=== PATIENT | male | born 1960 | race Caucasian/White ===

== ENCOUNTER 2018-05-16 11:11 | Inpatient (IN) ==
[2018-05-16 11:46] LABS: Basophils % 0.4 % (0.1-2.0); Eosinophils # 0.1 K/mm3 (0.0-0.4); Eosinophils % 1.4 % (0.1-12.0); Hematocrit 44.5 % (42.0-52.0); Lymphocytes # 2.1 K/mm3 (0.7-4.5); Lymphocytes % 22.9 % (10-50); Mean Corpuscular HGB Conc 33.7 g/dL (31.8-35.4); Mean Platelet Volume 7.2 fl (7.4-10.4); Monocytes # 0.5 K/mm3 (0.1-1.0); Monocytes % 5.4 % (1.7-9.3); Neutrophils # 6.4 K/mm3 (1.8-7.8); Platelet Count 253 K/mm3 (142-424); Red Cell Distribution Width 14.6 % (11.5-17.5); White Blood Count 9.1 K/mm3 (4.8-10.8)
[2018-05-16 11:48] LABS: Anion Gap 15.9 mEq/L (5-15); Calcium 9.6 mg/dL (8.5-10.1); Potassium 3.9 mmoL/L (3.5-5.1)
--- NOTE | 2018-05-16 15:44 | History & Physical Report ---
*Admission Date: 05/16/18 *Chief complaint: chest pain *History of present illness: 57-year-old male with history of tobacco use, hypertension, coronary artery disease status post CABG who presented with worsening shortness of breath, chest pressure, and nausea for the past day. His symptoms were severe enough that he called EMS. Upon arrival his workup in the ambulance showed concern for ST elevation. He was emergently taken to the cardiac Manager Of Case where occlusion of 1 of his vein grafts was noted. Stent was placed in reperfusion obtained however patient remained tachycardic and continued to have ST elevations on telemetry post-cath. Symptoms had significantly improved upon interview in the Manager Of Case every area. Denied nausea, headache, confusion, focal deficits, diarrhea, or shortness of breath. Medicine for further observation and management given persistent ST elevation and return for near complete [place] thrombosed dominant right vein graft. Cardiology involved. [facility] History Medical History: Reports:: Atherosclerotic Heart Disease, Coronary Artery Disease, Hyperlipidemia, Hypertension Other Surgeries: Yes: CABG - *Social History Educational Level: Attended High School Smoking Status: Current every day smoker Tobacco Type: cigarettes # Packs/Day (cigarettes): 1 Alcohol Intake: former Substance Use Type: denies use Travel in the last 8 weeks: None Family Hx:: Cancer, Coronary Artery Disease, Heart Attack Review of Systems - Review of Systems Review of systems:: pertinent systems reviewed and negative unless documented below Meds Home Medications Medication Instructions Recorded Confirmed Type Aspirin [Aspirin 81mg EC Tab] 81 mg PO DAILY 05/16/18 05/16/18 History Chlorthalidone 25 mg PO DAILY 05/16/18 05/16/18 History Fluticasone Propionate [Flonase 2 spr NS DAILY 05/16/18 05/16/18 History 50mcg nasal spray 16gm] Gabapentin Enacarbil [Horizant 600 mg PO BID 05/16/18 05/16/18 History 600mg ER Tab] Omeprazole [Omeprazole 40mg 40 mg PO DAILY 05/16/18 05/16/18 History Capsule] Oxycodone HCl/Acetaminophen 1 each PO QID 05/16/18 05/16/18 History [Percocet 10-325 mg Tablet] Simvastatin [Zocor] 80 mg PO HS 05/16/18 05/16/18 History Tiotropium Br/Olodaterol HCl 2.5 gm IH DAILY 05/16/18 05/16/18 History [Stiolto Respimat Inhal [place]] dilTIAZem HCl [Diltiazem 240mg 240 mg PO DAILY 05/16/18 05/16/18 History 24Hr ER Cap] Allergies Allergy/AdvReac Type Severity Reaction Status Date / Time No Known Allergies Allergy Verified 05/16/18 11:20 Exam Vital signs and Labs for Last 24 Hours: Pulse Resp BP Pulse Ox 91 H 18 102/57 L 98 05/16/18 15:03 05/16/18 15:03 05/16/18 15:03 05/16/18 15:03 Laboratory Results - last 24 hr 05/16/18 11:10: WBC 9.1, RBC 5.00, Hgb 15.0, Hct 44.5, MCV 89.0, MCH 30.0, MCHC 33.7, RDW 14.6, Plt Count 253, MPV 7.2 L, Neut % (Auto) 70.0, Lymph % (Auto) 22.9, [place] % (Auto) 5.4, Eos % (Auto) 1.4, Baso % (Auto) 0.4, Neut # (Auto) 6.4, Lymph # (Auto) 2.1, [place] # (Auto) 0.5, Eos # (Auto) 0.1, Baso # (Auto) 0.0 05/16/18 11:10: Sodium 137, Potassium 3.9, Chloride 99, Carbon Dioxide 26, Anion Gap 15.9 H, BUN 14, Creatinine 1.23, Estimated Creat Clear 74, Estimated GFR 60, Est GFR ( Amer) 73, Glucose 111 H, Calcium 9.6 05/16/18 11:29: Activated Clotting Time > 400 H* I & O for Last 24 hours: Intake & Output 05/13/18 05/14/18 05/15/18 05/16/18 23:59 23:59 23:59 23:59 Weight 80.286 kg - Constitutional mild distress, thin, disheveled - *Routine HEENT Exam Head: Present: normocephalic, atraumatic Eye: Present: EOMI, PERRL ENT: Present: mucous membranes moist - *Routine Neck Exam Present: supple, full ROM. Absent: JVD - *Routine Respiratory Exam Present: CTA bilaterally. Absent: prolonged expiratory phase, wheezes, crackles - *Routine Cardiovascular Exam Present: RRR, Normal S1 Comments: well healed midline sternotomy scar. - *Routine Abdominal Exam Present: soft, normoactive bowel sounds - *Routine Rectal Exam Patient deferred: visual exam - *Routine Exam Patient deferred: penile exam - *Routine Extremities Exam Absent: cyanosis, clubbing, edema - *Routine Skin Exam Present: intact. Absent: cyanosis, erythema Comments: multiple tattoos - *Routine Neurological Exam Present: alert, oriented X3. Absent: altered mental status Assessment and Plan (1) STEMI (ST elevation myocardial infarction) Current visit: Yes Status: Acute Category: Medical Code(s): I21.3 - ST elevation (STEMI) myocardial infarction of unspecified site Occlusion of vein graft to right main -Status post stent placement and thrombectomy. Continue goal-directed therapy with Brilinta, TRAVIS, beta-demar, statin -Monitor on telemetry -Cardiology will continue to follow along, appreciate recommendations (2) CAD (coronary artery disease), [place] coronary artery Current visit: Yes Status: Acute Category: Medical Code(s): I25.10 - Atherosclerotic heart disease of [place] coronary artery without angina pectoris Status post CABG, coronary artery disease of vein grafts as well. (3) HTN (hypertension) Current visit: Yes Status: Acute Qualifiers: Hypertension type: essential hypertension Qualified Code(s): I10 - Essential (primary) hypertension Category: Medical Code(s): I10 - Essential (primary) hypertension Less than 140/90 -Continue antihypertensives as ordered (4) Tobacco use disorder Current visit: Yes Status: Chronic Category: Medical Code(s): F17.200 - Nicotine dependence, unspecified, uncomplicated nicotine replacement as needed (5) Opiate dependence Current visit: Yes Status: Chronic Qualifiers: Substance use status: uncomplicated Qualified Code(s): F11.20 - Opioid dependence, uncomplicated Category: Medical Code(s): F11.20 - Opioid dependence, uncomplicated Henrry uses 10 mg of Percocet 4 times a day. At risk for withdrawal. In setting of acute NE, withdrawal symptoms could be life-threatening. Will initiate Percocet 10 mg every 4hr as needed - Assessment and plan all Dx Assessment and Plan for all problems:: Mr. Mohr is a 57-year-old male who is suffered a heart attack status post stent of vein graft. Condition remains serious, prognosis guarded. At risk for arrhythmias. Will advance rate control as tolerated. Will require continued monitoring as his subtotal heart attack continues to involve.
[2018-05-17 06:00] LABS: Basophils % 0.2 % (0.1-2.0); Eosinophils # 0.1 K/mm3 (0.0-0.4); Eosinophils % 0.9 % (0.1-12.0); Hematocrit 40.9 % (42.0-52.0); Hemoglobin 13.6 g/dL (14.1-18.0); Lymphocytes # 1.7 K/mm3 (0.7-4.5); Lymphocytes % 14.8 % (10-50); Mean Corpuscular HGB Conc 33.1 g/dL (31.8-35.4); Mean Corpuscular Hemoglobin 29.9 pg (27.0-31.2); Mean Corpuscular Volume 90.2 fl (80-94); Monocytes # 0.7 K/mm3 (0.1-1.0); Monocytes % 5.8 % (1.7-9.3); Neutrophils # 8.8 K/mm3 (1.8-7.8); Neutrophils % 78.4 % (37.0-80.0); Platelet Count 237 K/mm3 (142-424); Red Blood Count 4.54 M/mm3 (4.60-6.20); Red Cell Distribution Width 14.7 % (11.5-17.5); White Blood Count 11.3 K/mm3 (4.8-10.8)
[2018-05-17 06:20] LABS: Anion Gap 14.3 mEq/L (5-15); Calcium 9.1 mg/dL (8.5-10.1); Potassium 4.3 mmoL/L (3.5-5.1)
--- NOTE | 2018-05-17 09:22 | Progress Note ---
Internal Medicine - PN: Subj *Date: 05/17/18 *Time: 08:30 Interval history: Mr. Mohr did well overnight with no further episodes of chest pain, palpitations, shortness of breath. Tolerating regular diet. review of telemetry shows occasional PVC, still some slight ST elevation though improved. No other findings of ectopy. Blood pressure has remained stable and heart rate under 100 overnight. Remains afebrile, denies nausea, vomiting, upset stomach. Exam Vital signs and Labs for Last 24 Hours: Temp Pulse Resp BP Pulse Ox 98.3 F 68 15 103/63 L 91 L 05/17/18 08:00 05/17/18 08:00 05/17/18 08:00 05/17/18 08:00 05/17/18 08:00 Laboratory Results - last 24 hr 05/16/18 11:10: WBC 9.1, RBC 5.00, Hgb 15.0, Hct 44.5, MCV 89.0, MCH 30.0, MCHC 33.7, RDW 14.6, Plt Count 253, MPV 7.2 L, Neut % (Auto) 70.0, Lymph % (Auto) 22.9, [place] % (Auto) 5.4, Eos % (Auto) 1.4, Baso % (Auto) 0.4, Neut # (Auto) 6.4, Lymph # (Auto) 2.1, [place] # (Auto) 0.5, Eos # (Auto) 0.1, Baso # (Auto) 0.0 05/16/18 11:10: Sodium 137, Potassium 3.9, Chloride 99, Carbon Dioxide 26, Anion Gap 15.9 H, BUN 14, Creatinine 1.23, Estimated Creat Clear 74, Estimated GFR 60, Est GFR ( Amer) 73, Glucose 111 H, Calcium 9.6 05/16/18 11:29: Activated Clotting Time > 400 H* 05/17/18 05:45: WBC 11.3 H, RBC 4.54 L, Hgb 13.6 L, Hct 40.9 L, MCV 90.2, MCH 29.9, MCHC 33.1, RDW 14.7, Plt Count 237, MPV 8.0, Neut % (Auto) 78.4, Lymph % (Auto) 14.8, [place] % (Auto) 5.8, Eos % (Auto) 0.9, Baso % (Auto) 0.2, Neut # (Auto) 8.8 H, Lymph # (Auto) 1.7, [place] # (Auto) 0.7, Eos # (Auto) 0.1, Baso # (Auto) 0.0 05/17/18 05:45: Sodium 136, Potassium 4.3, Chloride 99, Carbon Dioxide 27, Anion Gap 14.3, BUN 12, Creatinine 1.16, Estimated Creat Clear 78, Estimated GFR 65, Est GFR ( Amer) 78, Glucose 113 H, Calcium 9.1 I & O for Last 24 hours: Intake & Output 05/14/18 05/15/18 05/16/18 05/17/18 23:59 23:59 23:59 23:59 Intake Total 120 / 120 480 / 480 Output Total 940 / 940 600 / 600 Balance -820 / -820 -120 / -120 Weight 79.492 kg 79.379 kg Narrative: - Constitutional NAD, thin - *Routine HEENT Exam Head: Present: normocephalic, atraumatic Eye: Present: EOMI, PERRL ENT: Present: mucous membranes moist - *Routine Neck Exam Present: supple, full ROM. Absent: JVD - *Routine Respiratory Exam Present: CTA bilaterally. Absent: prolonged expiratory phase, wheezes, crackles - *Routine Cardiovascular Exam Present: RRR, Normal S1 Comments: well healed midline sternotomy scar. - *Routine Abdominal Exam Present: soft, normoactive bowel sounds - *Routine Rectal Exam Patient deferred: visual exam - *Routine Exam Patient deferred: penile exam - *Routine Extremities Exam Absent: cyanosis, clubbing, edema - *Routine Skin Exam Present: intact. Absent: cyanosis, erythema Comments: multiple tattoos - *Routine Neurological Exam Present: alert, oriented X3. Absent: altered mental status Assessment and Plan (1) STEMI (ST elevation myocardial infarction) Current visit: Yes Status: Acute Category: Medical Code(s): I21.3 - ST elevation (STEMI) myocardial infarction of unspecified site (2) CAD (coronary artery disease), [place] coronary artery Current visit: Yes Status: Acute Category: Medical Code(s): I25.10 - Atherosclerotic heart disease of [place] coronary artery without angina pectoris (3) HTN (hypertension) Current visit: Yes Status: Acute Qualifiers: Hypertension type: essential hypertension Qualified Code(s): I10 - Essential (primary) hypertension Category: Medical Code(s): I10 - Essential (primary) hypertension (4) Tobacco use disorder Current visit: Yes Status: Chronic Category: Medical Code(s): F17.200 - Nicotine dependence, unspecified, uncomplicated (5) Opiate dependence Current visit: Yes Status: Chronic Qualifiers: Substance use status: uncomplicated Qualified Code(s): F11.20 - Opioid dependence, uncomplicated Category: Medical Code(s): F11.20 - Opioid dependence, uncomplicated - Assessment and plan all Dx Assessment and Plan for all problems:: Patient doing quite well. Due to high risk for acute cardiac within the first 48 hours after patient's SD, continue inpatient management. Will obtain echocardiogram in the morning. Continue metoprolol, goal-directed therapy. Continue telemetry, de-escalate from ICU status.
--- NOTE | 2018-05-17 15:21 | Pharmacy Consult Notes ---
[facility] Pharmacy VTE Monitoring - Patient Demographics Admission date: 05/16/18 Report Date: 05/17/18 Time: 15:20 Allergies/Adverse Reactions: Patient Allergies No Known Allergies Allergy (Verified 05/16/18 11:20) Height: 1.85 m Weight: 79.379 kg Patient Problems: Current Active Problems STEMI (ST elevation myocardial infarction) (Acute) CAD (coronary artery disease), [place] coronary artery (Acute) HTN (hypertension) (Acute) Tobacco use disorder (Chronic) Opiate dependence (Chronic) - VTE Risk Labs: VTE Related Lab Results Hgb 13.6 g/dL (14.1-18.0) L 05/17/18 05:45 Hct 40.9 % (42.0-52.0) L 05/17/18 05:45 Plt Count 237 K/mm3 (142-424) 05/17/18 05:45 BUN 12 mg/dL (7-18) 05/17/18 05:45 Creatinine 1.16 mg/dL (0.70-1.30) 05/17/18 05:45 Estimated Creat Clear 78 mL/min (50-200) 05/17/18 05:45 Was VTE Risk Assessment Performed: Yes VTE Score: 2 VTE Risk Level: Very Low Risk - Prophylaxis VTE Prophylaxis Ordered?: Yes Types of VTE Prophylaxis: TEDS Knee High Location of Applied Device: Bilateral Lower Extremeties
--- NOTE | 2018-05-18 08:39 | Discharge Summary ---
General - General Admission date:: 05/16/18 Discharge date: 05/18/18 HPI HPI: 57-year-old male with history of tobacco use, hypertension, coronary artery disease status post CABG who presented with worsening shortness of breath, chest pressure, and nausea for the past day. His symptoms were severe enough that he called EMS. Upon arrival his workup in the ambulance showed concern for ST elevation. He was emergently taken to the cardiac Electrical Test Engineer where occlusion of 1 of his vein grafts was noted. Stent was placed in reperfusion obtained however patient remained tachycardic and continued to have ST elevations on telemetry post-cath. Symptoms had significantly improved upon interview in the Electrical Test Engineer every area. Denied nausea, headache, confusion, focal deficits, diarrhea, or shortness of breath. Medicine for further observation and management given persistent ST elevation and return for near complete [place] thrombosed dominant right vein graft. Cardiology involved. Hospital Course Hospital Course: Patient was admitted, taken to the Electrical Test Engineer urgently for his STEMI with the results as noted below: ANGIOGRAPHIC RESULTS: 1. The left main artery has distal 50% stenosis 2. 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 The circumflex artery is nondominant and gives rise to a small first obtuse marginal artery which has 90% stenoses in its proximal mid segment 4. The right coronary artery is a dominant vessel and occluded in its proximal segment 5. The [place] ventriculogram reveals moderate left ventricular dilatation ejection fraction 40% with inferior wall hypokinesis 6. The left ventricular end-diastolic pressure 20 mmHg The left internal mammary artery is widely patent onto the LAD The saphenous vein graft to the circumflex artery is widely patent Saphenous vein graft to the dominant right coronary artery has an ostial 60-70% stenosis very proximal atheromatous plaque with dissection and occluded in its distal segment from a large thrombus. After revascularization and stenting the vein graft anastomosis on to the posterior descending artery which then backfills the posterior lateral branch and the right ventricular marginal branch. IMPRESSION: Acute inferolateral posterior right ventricular ST elevation myocardial infarction Successful drug-eluting stenting of the ostial proximal mid and distal saphenous vein graft supplying the dominant right coronary artery as described above Patent [place] to the LAD Reduced ejection fraction with regional wall motion abnormality Mildly elevated LVEDP Severe [place] coronary artery disease as described above Patent saphenous vein graft to circumflex which artery PLAN: 1. Brilinta and aspirin for one year 2. Absolute tobacco cessation 3. LDL less than 55 4. Cardiac rehabilitation 5. Supportive care with planned echocardiogram on Friday 6. Start Greg inhibitors as soon as hemodynamically stable. Beta blockers can also continue or start once patient is more stable from a heart rate standpoint 7. Patient should receive judicious amounts of opioids. Patient indicates he takes pain pills on a regular basis. This history needs to be explored and the exact amount quantitated. Patient should not experience any opiate Withdrawal symptoms during his letty-infarct as this will be detrimental to his cardiovascular health Patient did well after the heart cath, beta-demar and GREG inhibitors were started and tolerated well. This morning the patient was doing well, stable to be discharged home from a vital sign perspective. He will follow-up with his regular physician, Dr. Cong Garcia this week and with cardiology in 1 week. He was encouraged to completely stop smoking. Objective Vital signs: Temp Pulse Resp BP Pulse Ox 98.9 F 82 16 116/76 96 05/18/18 04:00 05/18/18 04:00 05/18/18 04:00 05/18/18 04:00 05/18/18 04:00 no acute distress, thin - *Routine HEENT Exam Head: Present: normocephalic, atraumatic Eye: Present: EOMI, PERRL ENT: Present: mucous membranes moist - *Routine Respiratory Exam Present: CTA bilaterally. Absent: accessory muscle use, prolonged expiratory phase - *Routine Cardiovascular Exam Present: RRR, Normal S1, Normal S2, murmur - *Routine Abdominal Exam Present: soft, normoactive bowel sounds, tenderness - *Routine Extremities Exam Present: full ROM. Absent: cyanosis, clubbing, edema - *Routine Neurological Exam Present: alert, oriented X3 DS: Diagnosis - Discharge Diagnosis (1) STEMI (ST elevation myocardial infarction) Status: Acute (2) CAD (coronary artery disease), [place] coronary artery Status: Acute (3) HTN (hypertension) Status: Acute (4) Tobacco use disorder Status: Chronic (5) Opiate dependence Status: Chronic Discharge Plan - Patient Discharge Instructions ACTIVITY: Continue current activity DIET: continue same diet Patient Instructions: Heart Attack, Cardiac Catheterization, How to Quit Tobacco Products - Follow up Plan Follow up with: Cong Garcia [Primary Care Provider] - 05/21/18 Lawrence Adrian MD [Staff Physician] - 1 week Disposition: Home, Self-[facility] Medications: Home Medications Medication Instructions Recorded Confirmed Type Aspirin [Aspirin 81mg EC Tab] 81 mg PO DAILY 05/16/18 05/16/18 History Chlorthalidone 25 mg PO DAILY 05/16/18 05/16/18 History Fluticasone Propionate [Flonase 2 spr NS DAILY 05/16/18 05/16/18 History 50mcg nasal spray 16gm] Gabapentin Enacarbil [Horizant 600 mg PO BID 05/16/18 05/16/18 History 600mg ER Tab] Omeprazole [Omeprazole 40mg 40 mg PO DAILY 05/16/18 05/16/18 History Capsule] Oxycodone HCl/Acetaminophen 1 each PO QID 05/16/18 05/16/18 History [Percocet 10-325 mg Tablet] Simvastatin [Zocor] 80 mg PO HS 05/16/18 05/16/18 History Tiotropium Br/Olodaterol HCl 2 spray IH DAILY 05/16/18 05/17/18 History [Stiolto Respimat Inhal [place]] Losartan Potassium 50 mg PO DAILY 05/17/18 05/17/18 History dilTIAZem HCl [Diltiazem 180mg 180 mg PO DAILY 05/17/18 05/17/18 History 24Hr ER Cap] Metoprolol Tartrate [Lopressor 25 mg PO BID #60 tablet 05/18/18 Rx 25mg tablet] Nicotine [Nicotine Patch 21 mg TD DAILY #30 patch 05/18/18 Rx 21mg/24hrs] Ticagrelor [Brilinta 90mg Tablet] 90 mg PO BID 90 Days #180 tablet 05/18/18 Rx Prescriptions/Medication Reconciliation: New Metoprolol Tartrate [Lopressor 25mg tablet] 25 mg PO BID #60 tablet Nicotine [Nicotine Patch 21mg/24hrs] 21 mg TD DAILY #30 patch Ticagrelor [Brilinta 90mg Tablet] 90 mg PO BID 90 Days #180 tablet Continue Fluticasone Propionate [Flonase 50mcg nasal spray 16gm] 2 spr NS DAILY Tiotropium Br/Olodaterol HCl [Stiolto Respimat Inhal [place]] 2 spray IH DAILY Omeprazole [Omeprazole 40mg Capsule] 40 mg PO DAILY Aspirin [Aspirin 81mg EC Tab] 81 mg PO DAILY Simvastatin [Zocor] 80 mg PO HS Gabapentin Enacarbil [Horizant 600mg ER Tab] 600 mg PO BID Losartan Potassium 50 mg PO DAILY dilTIAZem HCl [Diltiazem 180mg 24Hr ER Cap] 180 mg PO DAILY Oxycodone HCl/Acetaminophen [Percocet 10-325 mg Tablet] 1 each PO QID Chlorthalidone 25 mg PO DAILY
--- NOTE | 2018-05-18 08:59 | Consult Report ---
History of Present Illness Consult date: 05/18/18 Requesting physician: Teddy Hutchinson Consult reason: chest pain Chief complaint: chest pain Additional Medical History:: 1. CAD A. CABG 1997 B. Multiple stents since CABG C. STEMI, infero-posterior, 05/16/2018 D. [facility] with MEI to SVG to RCA, 05/16/18, IMPRESSION: Acute inferolateral posterior right ventricular ST elevation myocardial infarction Successful drug-eluting stenting of the ostial proximal mid and distal saphenous vein graft supplying the dominant right coronary artery as described above Patent PULIDO to the LAD Reduced ejection fraction with regional wall motion abnormality Mildly elevated LVEDP Severe [place] coronary artery disease as described above Patent saphenous vein graft to circumflex which artery PLAN: 1. Brilinta and aspirin for one year 2. Absolute tobacco cessation 3. LDL less than 55 4. Cardiac rehabilitation 5. Supportive care with planned echocardiogram on Friday 6. Start Greg inhibitors as soon as hemodynamically stable. Beta blockers can also continue or start once patient is more stable from a heart rate standpoint 7. Patient should receive judicious amounts of opioids. Patient indicates he takes pain pills on a regular basis. This history needs to be explored and the exact amount quantitated. Patient should not experience any opiate Withdrawal symptoms during his letty-infarct as this will be detrimental to his c ardiovascular health 2. Tobacco use, >40 yrs, smoked up to 4-5 ppd prior to CABG, 1-2 ppd since CABG 3. HTN 4. HLD 5. Disabled due to chronic back pain 6. Echo, 05/2018, preliminary showing LVEF about 50%. Official report pending. History of present illness: 57 yo WM admitted after cardiac cath for infero-posterior STEMI with patient being taken from ambulance straight to clinical laboratory medical director. Pt relates one week of exertional SS CP with radiation to left arm that would resolve with rest. Friday AM symptoms woke him and would not resolve. EMS called and pt t ransported to clinical laboratory medical director after EKG in field showed STEMI. MEI placed to SVG to RCA. Pt feeling much better now. Uncomplicated course over the weekend. Ready for discharge home today. [facility] History Medical History: Reports:: Atherosclerotic Heart Disease, Coronary Artery Disease, Hyperlipidemia, Hypertension Denies:: Cancer, Diabetes Mellitus Type 1, Diabetes Mellitus Type 2, MRSA Have you ever received a pneumonia vaccine?: Yes Have you received a flu vaccine this season?: Yes Laterality Cases: Left: Arthroscopy Shoulder Other Surgeries: Yes: CABG, Cardiac Catheterization, Cardiac Surgery, Colonoscopy, Coronary Stent, EGD, Open Heart Surgery, Other (2 neck surgeries, 2 (L) shoulder surgeries,) Amputation: No Fractures: No - *Social History Educational Level: Attended High School Smoking Status: Current every day smoker Tobacco Type: cigarettes # Packs/Day (cigarettes): 1 Alcohol Intake: former Substance Use Type: denies use Occupational Status: disabled Housing: house Household Members: spouse, children Travel in the last 8 weeks: None - Psychiatric History Expresses thoughts of harming self/others: None Suicide Plan Description: No Plan Family Hx:: Cancer, Coronary Artery Disease, Heart Attack Meds Home Medications Medication Instructions Recorded Confirmed Type Aspirin [Aspirin 81mg EC Tab] 81 mg PO DAILY 05/16/18 05/16/18 History Chlorthalidone 25 mg PO DAILY 05/16/18 05/16/18 History Fluticasone Propionate [Flonase 2 spr NS DAILY 05/16/18 05/16/18 History 50mcg nasal spray 16gm] Gabapentin Enacarbil [Horizant 600 mg PO BID 05/16/18 05/16/18 History 600mg ER Tab] Omeprazole [Omeprazole 40mg 40 mg PO DAILY 05/16/18 05/16/18 History Capsule] Oxycodone HCl/Acetaminophen 1 each PO QID 05/16/18 05/16/18 History [Percocet 10-325 mg Tablet] Simvastatin [Zocor] 80 mg PO HS 05/16/18 05/16/18 History Tiotropium Br/Olodaterol HCl 2 spray IH DAILY 05/16/18 05/17/18 History [Stiolto Respimat Inhal [place]] Losartan Potassium 50 mg PO DAILY 05/17/18 05/17/18 History dilTIAZem HCl [Diltiazem 180mg 180 mg PO DAILY 05/17/18 05/17/18 History 24Hr ER Cap] Metoprolol Tartrate [Lopressor 25 mg PO BID #60 tablet 05/18/18 Rx 25mg tablet] Nicotine [Nicotine Patch 21 mg TD DAILY #30 patch 05/18/18 Rx 21mg/24hrs] Ticagrelor [Brilinta 90mg Tablet] 90 mg PO BID 90 Days #180 tablet 05/18/18 Rx Allergies Allergy/AdvReac Type Severity Reaction Status Date / Time No Known Allergies Allergy Verified 05/16/18 11:20 Review of Systems - *Cardiovascular Reports chest pain, Reports shortness of breath - *Respiratory Reports shortness of breath, Reports shortness of breath with activity - *Gastrointestinal Denies abdominal pain, Denies vomiting blood - *Genitourinary Denies blood in urine - *Musculoskeletal Reports back pain - *Neurologic Denies dizziness, Denies lack of coordination Exam Vital signs and Labs for Last 24 Hours: Temp Pulse Resp BP Pulse Ox 98.9 F 82 16 116/76 96 05/18/18 04:00 05/18/18 04:00 05/18/18 04:00 05/18/18 04:00 05/18/18 04:00 I & O for Last 24 hours: Intake & Output 05/15/18 05/16/18 05/17/18 05/18/18 11:59 11:59 11:59 11:59 Intake Total 600 / 600 1200 / 1200 Output Total 1540 / 1540 3000 / 3000 Balance -940 / -940 -1800 / -1800 Weight 177 lb 175 lb 175 lb - *Routine HEENT Exam Head: Present: normocephalic Eye: Present: EOMI, PERRL ENT: Present: mucous membranes moist - *Routine Neck Exam Present: supple. Absent: JVD, carotid bruit - *Routine Respiratory Exam Present: rhonchi, wheezes, diminished air movement. Absent: accessory muscle use, rales - *Routine Cardiovascular Exam Present: RRR. Absent: murmur, gallop, rubs - *Routine Abdominal Exam Present: soft. Absent: tenderness, distended, guarding - *Routine Extremities Exam Absent: edema, calf tenderness - *Routine Neurological Exam Present: alert, oriented X3, moving all extremities Assessment and Plan (1) STEMI (ST elevation myocardial infarction) Current visit: Yes Status: Acute Category: Medical Code(s): I21.3 - ST elevation (STEMI) myocardial infarction of unspecified site (2) CAD (coronary artery disease), [place] coronary artery Current visit: Yes Status: Acute Category: Medical Code(s): I25.10 - Atherosclerotic heart disease of [place] coronary artery without angina pectoris (3) HTN (hypertension) Current visit: Yes Status: Acute Qualifiers: Hypertension type: essential hypertension Qualified Code(s): I10 - Essential (primary) hypertension Category: Medical Code(s): I10 - Essential (primary) hypertension (4) Tobacco use disorder Current visit: Yes Status: Chronic Category: Medical Code(s): F17.200 - Nicotine dependence, unspecified, uncomplicated (5) Opiate dependence Current visit: Yes Status: Chronic Qualifiers: Substance use status: uncomplicated Qualified Code(s): F11.20 - Opioid dependence, uncomplicated Category: Medical Code(s): F11.20 - Opioid dependence, uncomplicated - Assessment and plan all Dx Assessment and Plan for all problems:: 1. Home today on ASA 81 mg daily, Brilinta 90 mg BID, Losartan 50 mg daily, metoprolol 25 mg BID and atorvastatin 40 mg daily 2. Tobacco cessation strongly encouraged. 3. Follow up in one week. 4. Nothing strenuous. Will refer for cardiac rehab after follow up.
--- NOTE | 2018-05-18 20:00 | Cardiology Report ---
PROCEDURE: 2-D M-mode and color Doppler study INDICATIONS FOR THE TEST: Chest pain COPD Heart Murmur Tobacco SmokingX Palpitations Fatigue Syncope Edema HypertensionXDiabetes Mellitus Rheumatic Fever SOB ALEXANDER Obesity HyperlipidemiaX Family History HD Additional History STEMI,CABG,CATH 05/16 EF 40% PATIENT INFORMATION HEIGHT: 72 WEIGHT:175 GENDER: Male B/P:102/57 2-D/M-MODE INTERPRETATION: 2-D MEASUREMENTS OBSERVED VALUES IN CMS Right Ventricular Dimension (RVDd) 2.4 Interventricular Septum (Thickness)(IVsd) 1.3 Left Ventricular Internal Dimensions(LVIDd) 5.5 Left Ventricular Posterior Wall (Thickness)(LVPWd) 1.1 Aortic Root 3.4 Aortic Cusp Separation 2.3 Left Atrial Dimensions (LAD) 2.3 2D 1. Left atrium is mildly enlarged, left ventricle is normal size, mild concentric left ventricular hypertrophy, visually estimated ejection fraction 45-50%, there is moderate hypokinesis involving the basal septum and inferobasal wall. 2. The right atrium and right ventricle are mildly enlarged with normal contractility. 3. The aortic valve is minimally thickened and fibrosed. 4. The mitral and tricuspid valvular grossly normal. 5. The pulmonic valve is poorly present. 6. No significant pericardial effusion noted. DOPPLER INTERROGATION: Doppler interrogation of the aortic, mitral and tricuspid valvular presence of mild mitral and tricuspid regurgitation, tricuspid regurgitation jet velocity is inadequate for calculation of the right ventricular systolic pressure, grade 1 diastolic dysfunction seen without tissue Doppler evidence of raised left atrial pressure. CONCLUSION: 1. Mildly enlarged left atrium, normal left ventricular size, mild concentric left ventricular hypertrophy, visually estimated ejection fraction 45-50% with no regional wall motion abnormality, grade 1 diastolic dysfunction seen without tissue Doppler evidence of raised left atrial pressure. 2. Mildly enlarged right ventricle with normal contractility. 3. Mild mitral and tricuspid regurgitation 4. No significant pericardial effusion noted.
== END 2018-05-18 11:00 | disposition home or self-care (01) | DRG 247 ==
LOC: SDC 11:11 → ICU 12:35
PROVIDERS: ADMIT Internal Medicine Adolescent Medicine; ATTEND Internal Medicine Adolescent Medicine
CPT/HCPCS: 36415; 80048; 85025; 85347; 92941; 92973; 93005; 93306; 93459; 99152; 99153; C1725; C1760; C1769; C1876; C1894; C9606; J1644; Q9966; Q9967

== ENCOUNTER → 2018-05-21 10:20 | Outpatient (CLI) | payer MEDICARE, SELFPAY ==
[2018-05-21 11:03] LABS: Blood Urea Nitrogen 21 mg/dL (7-18); Calcium 8.9 mg/dL (8.5-10.1); Carbon Dioxide 27 mmol/L (21.0-32.0); Chloride 96 mmol/L (98-107); Creatinine,Serum 1.56 mg/dL (0.70-1.30); Estimated Glomerular Filt Rate 46 ml/min (>60); GFR (African American) 56 ML/MIN (>60); Glucose 83 mg/dL (74-106); Sodium 131 mmol/L (136-145)
[2018-05-21 11:15] LABS: Basophils % 0.3 % (0.1-2.0); Eosinophils # 0.2 K/mm3 (0.0-0.4); Eosinophils % 1.7 % (0.1-12.0); Hematocrit 42.3 % (42.0-52.0); Lymphocytes # 1.5 K/mm3 (0.7-4.5); Lymphocytes % 13.2 % (10-50); Mean Corpuscular HGB Conc 33.1 g/dL (31.8-35.4); Mean Corpuscular Hemoglobin 29.9 pg (27.0-31.2); Mean Corpuscular Volume 90.5 fl (80-94); Mean Platelet Volume 7.5 fl (7.4-10.4); Monocytes # 0.5 K/mm3 (0.1-1.0); Monocytes % 4.2 % (1.7-9.3); Neutrophils # 9.3 K/mm3 (1.8-7.8); Neutrophils % 80.6 % (37.0-80.0); Platelet Count 277 K/mm3 (142-424); Red Blood Count 4.68 M/mm3 (4.60-6.20); Red Cell Distribution Width 14.5 % (11.5-17.5); White Blood Count 11.5 K/mm3 (4.8-10.8)
== END ==
PROVIDERS: Visit Provider Internal Medicine
DX: I21.3 ST elevation (STEMI) myocardial infarction of unspecified site (principal); I25.10 Atherosclerotic heart disease of native coronary artery without angina pectoris
CPT/HCPCS: 36415; 80048; 83880; 85025

== ENCOUNTER → 2018-06-08 13:25 | Outpatient (CLI) | payer MEDICARE, SELFPAY ==
--- NOTE | 2018-06-08 13:26 | US_ITS ---
US Arterial Ankle Brachial Ind History: Peripheral artery disease, claudication, current smoker, discoloration of the normal ankle-brachial index [facility] 0[facility] heart the left 0.4 x 0.90 indicates mild to moderate peripheral artery disease 0.40 lower indicate severe disease ORDERING PHYSICIAN: Chriss Morejon MD PATIENT AGE: 57 years TECHNIQUE: Segmental pressures obtained of both right and left leg. These are compared to brachial blood pressure to yield index at each level sampled including summary AURORA. The data sheets from the procedure are available in PACS FINDINGS Rest study only performed today No prior studies available for comparison. Blood pressures reported are in millimeters mercury. RIGHT LEG A[place]A = 0.7. RIGHT LEG TBI=0.1 Brachial BP: 115 Thigh BP: 61 Calf BP: 60 Ankle PT: 75 Ankle DP : 58 Digit =12 LEFT LEG [place] = 0.8 LEFT LEG TBI= NA no pulses detected in the digits Brachial BPD: 113 Thigh BP: 119 Calf BP: 99 Ankle PT:96 Ankle DP: 66 Digit = 0 Pulses and waveforms: Diminished pulses and waveforms IMPRESSION: 1. The ABIs are low indicating moderate arterial disease 2. Very low right TBI and nondetectable pulses in the left great toe consistent with small vessel disease
--- NOTE | 2018-06-08 13:26 | CA_ITS ---
PROCEDURE: Limited study INDICATIONS FOR THE TEST: Chest pain COPD Heart Murmur Tobacco Smoking+ Palpitations Fatigue Syncope Edema Hypertension+Diabetes Mellitus Rheumatic Fever SOB ALEXANDER Obesity Hyperlipidemia+ Family History HD Additional History EF CHECK, CAD, OLD ND, CABG, STENT PATIENT INFORMATION HEIGHT: 73 WEIGHT:169 GENDER: Male B/P:101/69 2-D/M-MODE INTERPRETATION: 2-D MEASUREMENTS OBSERVED VALUES IN CMS Right Ventricular Dimension (RVDd) 3.3 Interventricular Septum (Thickness)(IVsd) 1.5 Left Ventricular Internal Dimensions(LVIDd) 3.8 Left Ventricular Posterior Wall (Thickness)(LVPWd) 1.1 Aortic Root 3.2 Aortic Cusp Separation Left Atrial Dimensions (LAD) 2.6 2D 1. Left atrium is mildly enlarged, left ventricle is normal size, mild concentric left ventricular hypertrophy, visually estimated ejection fraction approximately 45%, inferobasal wall is hypokinetic. 2. The right atrium and right ventricle are mildly enlarged with normal contractility. 3. The aortic valve is minimally thickened and fibrosed leaflet continue to display mobility. 4. The mitral and tricuspid valve leaflets are minimally thickened. 5. The pulmonic valve is poorly visualized 6. No significant pericardial effusion noted. DOPPLER INTERROGATION: No Doppler performed CONCLUSION: 1. Mildly enlarged left atrium, normal left ventricular size, mild concentric left ventricular hypertrophy, visually estimated ejection fraction 45% with segmental wall motion abnormality described above 2. No significant pericardial effusion noted.
== END ==
PROVIDERS: PCP Family Medicine; Visit Provider Internal Medicine Cardiovascular Disease
DX: I73.9 Peripheral vascular disease, unspecified (principal); I25.10 Atherosclerotic heart disease of native coronary artery without angina pectoris
CPT/HCPCS: 93308; 93922

== ENCOUNTER → 2018-07-17 12:57 | Outpatient (CLI) | payer MEDICARE, SELFPAY ==
[2018-07-17 13:33] LABS: Anion Gap 14.9 mEq/L (5-15); Blood Urea Nitrogen 15 mg/dL (7-18); Calcium 9.3 mg/dL (8.5-10.1); Carbon Dioxide 26 mmol/L (21.0-32.0); Chloride 102 mmol/L (98-107); Creatinine,Serum 1.54 mg/dL (0.70-1.30); Estimated Glomerular Filt Rate 47 ml/min (>60); GFR (African American) 56 ML/MIN (>60); Glucose 89 mg/dL (74-106); Potassium 3.9 mmoL/L (3.5-5.1); Sodium 139 mmol/L (136-145)
== END ==
PROVIDERS: Visit Provider Internal Medicine Cardiovascular Disease
DX: I11.9 Hypertensive heart disease without heart failure (principal); I25.118 Atherosclerotic heart disease of native coronary artery with other forms of angina pectoris; I73.9 Peripheral vascular disease, unspecified; R06.02 Shortness of breath
CPT/HCPCS: 36415; 80048

== ENCOUNTER → 2018-07-24 07:41 | Outpatient (CLI) | payer MEDICARE, SELFPAY ==
--- NOTE | 2018-07-24 07:42 | US_ITS ---
US aorta COMPARISON: None HISTORY: History of aortic aneurysm, previous exam done in [facility] TECHNIQUE: Ultrasound evaluation of the abdominal aorta FINDINGS: There is diffuse fusiform aneurysmal dilatation of the aorta likely infrarenal in origin and extending to the bifurcation. The aorta measures 4.0 x 4.3 cm in diameter 4 cm below the xiphoid process. The aorta measures 4.3 x 4.1 cm 1 cm above the umbilicus and tapers to normal caliber at the bifurcation but measuring 4.4 cm in diameter just above the bifurcation. There is mild diffuse arterial sclerotic plaque noted. IMPRESSION: Moderate diffuse fusiform aortic aneurysm likely infrarenal in origin and extending to the bifurcation.
[2018-07-24 10:31] LABS: Alanine Aminotransferase 18 U/L (12-78); Albumin Level 3.2 gm/dL (3.4-5.0); Alkaline Phosphatase 125 U/L (46-116); Aspartate Amino Transferase 12 U/L (15-37); Bilirubin,Direct 0.1 mg/dL (0.0-0.2); Bilirubin,Indirect 0.1 mg/dL (0.0-0.9); Bilirubin,Total 0.2 mg/dL (0.2-1.0); Chol/HDL Ratio 4.1 (1-3.5); Cholesterol 115 mg/dL (140-200); HDL Cholesterol 28 mg/dL (27-67); LDL Cholesterol 72 mg/dL (0-130); Total Protein,Serum 7.6 gm/dL (6.4-8.2); Triglycerides 77 mg/dL (30-200); VLDL Cholesterol 15 mg/dL (0-40)
== END ==
PROVIDERS: Internal Medicine Cardiovascular Disease; PCP Family Medicine; Visit Provider Internal Medicine
DX: I71.4 Abdominal aortic aneurysm, without rupture (principal); I25.118 Atherosclerotic heart disease of native coronary artery with other forms of angina pectoris; E78.2 Mixed hyperlipidemia; I73.9 Peripheral vascular disease, unspecified
CPT/HCPCS: 36415; 76770; 80061; 80076

== ENCOUNTER → 2019-10-19 09:04 | Outpatient (CLI) | payer MEDICARE, SELFPAY ==
--- NOTE | 2019-10-19 09:04 | US_ITS ---
PROCEDURE: US ABD. AORTA SCREENING CLINICAL INDICATION: AAA COMPARISON: AORTA US aorta from 07/24/2018 FINDINGS: Fusiform abdominal aortic aneurysm is once again noted measuring up to 5 cm AP and 4.9 cm transverse previously 4.3 x 4.1 cm. Proximal common iliacs are mildly dilated at 1.3 cm on the right and 1.2 cm on the IMPRESSION: Fusiform abdominal aortic aneurysm measuring up to 5 cm slightly increased in size compared to the previous exam. Consider CTA for further evaluation. Dictated by: Dean Esparza MD 10/21/2019 08:19 Electronically signed by Dean Esparza MD in [place] 10/21/2019 08:19
== END ==
PROVIDERS: PCP Family Medicine; Visit Provider Internal Medicine Cardiovascular Disease
DX: I71.4 Abdominal aortic aneurysm, without rupture (principal)
CPT/HCPCS: 76700; 76705

== ENCOUNTER → 2019-11-04 11:47 | Outpatient (CLI) | payer MEDICARE, SELFPAY ==
[2019-11-04 13:13] LABS: Blood Urea Nitrogen 20 mg/dl (9-20); Estimated Glomerular Filt Rate 62 ml/min (>60); GFR (African American) 75 ML/MIN (>60)
== END ==
PROVIDERS: Visit Provider Physician Assistant
DX: Z01.818 Encounter for other preprocedural examination (principal)
CPT/HCPCS: 36415; 82565; 84520

== ENCOUNTER → 2019-11-10 09:35 | Outpatient (CLI) | payer MEDICARE, SELFPAY ==
--- NOTE | 2019-11-10 09:36 | CT_ITS ---
Procedure: CT ANGIO ABDOMEN CLINICAL HISTORY: AAA Evaluate abdominal aortic aneurysm, back COMPARISON: US US ABD. AORTA SCREENING from 10/19/2019 TECHNIQUE: IV Contrast: 100ml Optiray 350 Axial images obtained with sagittal and coronal reformats. All CT scans at the facility use one or more dose reduction, viz: automated exposure control, ma/kV adjustment per patient size (including targeted exams where dose is matched to indication, i.e. head), or iterative reconstruction technique. FINDINGS: There is fusiform dilatation of the infrarenal abdominal aorta. The aneurysm begins 2 cm below the level of the renal arteries and measures 5 cm transverse and 5.4 cm AP. There is a moderate amount of mural thrombus with some faint calcification within the mural thrombus. The aneurysm ends at the aortic bifurcation. The proximal right common iliac is dilated at 1.9 cm. The proximal left common iliac artery measures up to 2 cm. No significant stenosis of the celiac or SMA. The FARHAN is involved by the aneurysm. Blood flow is present in the FARHAN but could be retrograde. There is calcific plaque at the ostium and mid aspect of both renal arteries with 50 percent or less stenosis on the left. There is suspected severe stenosis of the proximal aspect of the right renal artery of 90 percent or greater which is short segment and 6 mm distal to the origin of the right renal artery. This is best detected on the coronal images series 601, image 38 there are 2 left renal arteries but only 1 identified right renal artery. Nonvascular findings: There is a moderate amount of retained colonic feces. Bowel gas pattern is nonspecific. There are postsurgical changes of the lumbar spine with posterior fusion and inter pedicular screws at L4-L5 and S1. IMPRESSION: Infrarenal abdominal aortic aneurysm 5.4 x 5 cm with moderate mural thrombus extending to the aortic bifurcation Severe proximal right renal artery stenosis of 90 percent or greater Dictated Dean Berman MD 11/11/2019 09:07 Dean Esparza MD in [place] 11/11/2019 09:07
== END ==
PROVIDERS: PCP Family Medicine; Visit Provider Physician Assistant
DX: E78.5 Hyperlipidemia, unspecified (principal); F17.200 Nicotine dependence, unspecified, uncomplicated; I10 Essential (primary) hypertension; I11.9 Hypertensive heart disease without heart failure; I20.9 Angina pectoris, unspecified; I24.1 Dressler's syndrome; I25.10 Atherosclerotic heart disease of native coronary artery without angina pectoris; I25.2 Old myocardial infarction; I71.4 Abdominal aortic aneurysm, without rupture; I73.9 Peripheral vascular disease, unspecified
CPT/HCPCS: 74175; 75635; Q9967

== ENCOUNTER → 2020-02-16 12:49 | Outpatient (CLI) | payer MEDICARE, SELFPAY ==
--- NOTE | 2020-02-16 12:50 | CA_ITS ---
APPROVED REPORT EXAM: Comprehensive 2D, Doppler, and color-flow Echocardiogram Animation Producer: Luciana Reece RT(R) Ht: 6 ft 1 in Wt: 150lbs BSA: 1.90 BP: 108/73 mmHg Indications: smoker, HTN, hyperlpidemia, PAD, CABG 01/2020, ordered as EF check with definity. EF 06/2018 45% Echo Enhancing Agent Indication: Endocardial border delineation Agent(s) / Amount(s) Used: Definity 2 cc M-Mode Dimensions RVDd 3.09 cm (0.9-2.6) LVDd 5.23 cm (3.5-5.7) LVDs 4.90 cm (3.5-5.7) IVSd 0.94 cm (0.6-1.1) PWd 0.91 cm (0.6-1.1) EF (Teich) 14.00% FS 6.30% EDV (Teich) 131.20 mL ESV (Teich) 112.80 mL Conclusion 1. Limited study was performed to assess left ventricular systolic function, Definity contrast was utilized. 2. The left ventricle is mildly dilated, there is severe reduced left ventricular systolic function, visually estimated ejection fraction approximately 30%, there is marked hypokinesis involving the inferior inferior basal basal septum and posterior wall. There is no left ventricular thrombus seen. 3. No significant pericardial effusion noted. Electronically signed by : Chriss Morejon, 02/17/2020 13:26:56
== END ==
PROVIDERS: PCP Family Medicine; Visit Provider Internal Medicine Cardiovascular Disease
DX: R06.02 Shortness of breath (principal); I11.9 Hypertensive heart disease without heart failure; I73.9 Peripheral vascular disease, unspecified; E78.5 Hyperlipidemia, unspecified; I71.4 Abdominal aortic aneurysm, without rupture; F17.200 Nicotine dependence, unspecified, uncomplicated; Z95.1 Presence of aortocoronary bypass graft
CPT/HCPCS: 93308; Q9957

== ENCOUNTER → 2020-05-30 13:16 | Outpatient (CLI) | payer MEDICARE, SELFPAY ==
--- NOTE | 2020-05-30 13:17 | CA_ITS ---
APPROVED REPORT EXAM: Comprehensive 2D, Doppler, and color-flow Echocardiogram Limited Aviation Project Engineer: Nayla Grove RCS, RVS Ht: 6 ft 1 in Wt: 156lbs BSA: 1.94 BP: 110/66 mmHg Indications: SOA, CM, CAD, AAA repair, hx-cabg 2D Dimensions IVSd 0.98 cm LVEF (Visual) 14.30 % PWd 0.98 cm LVDd 5.13 cm LVDs 4.80 cm Aortic Root 3.55 cm Left Atrium 3.87 cm LVOT 1.99 cm (M/F) 1.5-2.5 M-Mode Dimensions LVDd 5.35 cm (3.5-5.7) LVDs 4.63 cm (3.5-5.7) EF (Teich) 28.60% FS 13.50% EDV (Teich) 138.30 mL ESV (Teich) 98.80 mL Tricuspid Valve TR P. Velocity 169.00 cm/s Left Ventricle Technically difficult and limited study was performed. Left atrium is mildly enlarged, left ventricle is mildly dilated, there is reduced left ventricular systolic function, visually estimated ejection fraction approximately 30%, inferior wall, basal septum is more hypokinetic than rest of the myocardial segments. Diastolic parameters are inconclusive study. Right Ventricle Right atrium and right ventricle are normal size and contractility. Aortic Valve Aortic valve is minimally thickened and fibrosed, grossly there is no aortic stenosis. Mitral Valve Mitral valve leaflets are minimally thickened, there is moderate mitral regurgitation. Tricuspid Valve Tricuspid valve is grossly normal, there is trace tricuspid regurgitation. Tricuspid regurgitation jet velocity is inadequate for calculation of the right ventricular systolic pressure. Pulmonic Valve Pulmonic valve is poorly visualized. Great Vessels Aortic root is normal size. Pericardium No significant pericardial effusion noted. Conclusion 1. Technically difficult and limited study was performed. Left atrium is mildly enlarged, left ventricle is mildly dilated, visually estimated ejection fraction approximately 30% with segmental wall motion abnormality described above, diastolic parameters are inconclusive. 2. Moderate mitral and mild tricuspid regurgitation. 3. No significant pericardial effusion noted. Electronically signed by : Chriss Morejon, 05/30/2020 21:26:47
== END ==
PROVIDERS: PCP Family Medicine; Visit Provider Internal Medicine Cardiovascular Disease
DX: R06.02 Shortness of breath (principal); I42.9 Cardiomyopathy, unspecified
CPT/HCPCS: 93308

== ENCOUNTER → 2020-05-30 13:54 | Outpatient (CLI) | payer MEDICARE, SELFPAY ==
[2020-05-30 14:30] LABS: Basophils % 0.3 % (0.1-2.0); Eosinophils # 0.1 K/mm3 (0.0-0.4); Eosinophils % 0.8 % (0.1-12.0); Hematocrit 41.2 % (42.0-52.0); Hemoglobin 12.1 g/dL (14.1-18.0); Lymphocytes # 1.5 K/mm3 (0.7-4.5); Lymphocytes % 17.7 % (10-50); Mean Corpuscular HGB Conc 29.4 g/dL (31.8-35.4); Mean Corpuscular Hemoglobin 22.7 pg (27.0-31.2); Mean Platelet Volume 7.3 fl (7.4-10.4); Monocytes # 0.3 K/mm3 (0.1-1.0); Monocytes % 3.6 % (1.7-9.3); Neutrophils # 6.5 K/mm3 (1.8-7.8); Neutrophils % 77.6 % (37.0-80.0); Platelet Count 224 K/mm3 (142-424); Red Blood Count 5.35 M/mm3 (4.60-6.20); White Blood Count 8.3 K/mm3 (4.8-10.8)
[2020-05-30 16:14] LABS: Chloride 101 mmol/L (98-107); Sodium 132 mmol/L (136-145)
[2020-05-30 16:15] LABS: Potassium 4.1 mmoL/L (3.5-5.1)
[2020-05-30 16:17] LABS: Alanine Aminotransferase 13 U/L (12-78); Albumin Level 3.8 g/dl (3.5-5.0); Alkaline Phosphatase 215 U/L (38-126); Anion Gap 7.1 mEq/L (5-15); Aspartate Amino Transferase 32 U/L (17-59); Bilirubin,Total 0.8 mg/dl (0.2-1.3); Blood Urea Nitrogen 13 mg/dl (9-20); Carbon Dioxide 28 mmol/L (22.0-30.0); Cholesterol 119 mg/dl (140-200); Estimated Glomerular Filt Rate 76 ml/min (>60); GFR (African American) 92 ML/MIN (>60); Globulin 3.9 g/dL (1.3-3.2); Glucose 99 mg/dl (74-100); Iron 28 ug/dL (49-181); Total Protein,Serum 7.7 g/dl (6.3-8.2); Triglycerides 91 mg/dl (30-150); VLDL Cholesterol 18 mg/dL (0-40)
[2020-05-30 16:18] LABS: Calcium 9.2 mg/dl (8.4-10.2); Chol/HDL Ratio 3.7 (1-3.5); HDL Cholesterol 32 mg/dl (40-60)
[2020-05-30 16:26] LABS: NT Pro Brain Natriuretic Pep. 16500 pg/mL (0-125)
[2020-05-30 16:28] LABS: Total Iron Binding Capacity 326 ug/dL (261-462)
[2020-05-30 16:29] LABS: Direct LDL Cholesterol 61.77 mg/dL (100-129)
[2020-05-30 16:34] LABS: Free T4 (Free Thyroxine) 1.76 ng/dl (0.78-2.19)
[2020-05-30 16:52] LABS: Thyroid Stimulating Hormone 1.83 uIU/mL (0.465-4.68)
[2020-05-30 16:56] LABS: Ferritin 41.8 ng/ml (17.9-464)
[2020-05-30 17:10] LABS: Vitamin B12 876 pg/mL (239-931)
[2020-05-30 17:28] LABS: Folate 4.28 ng/mL
== END ==
PROVIDERS: Nurse Practitioner Family; Visit Provider Family Medicine
DX: I42.9 Cardiomyopathy, unspecified (principal); R06.02 Shortness of breath
CPT/HCPCS: 36415; 80053; 80061; 82607; 82728; 82746; 83540; 83550; 83880; 84439; 84443; 85025; 93308

== ENCOUNTER 2020-05-30 17:19 | Emergency (ER) | payer MEDICARE, SELFPAY ==
[2020-05-30 17:20] VITALS: BP 134/77; PULSE 70; RESP 20; TEMP 36.6; O2SAT 95; BMI 19.8
--- NOTE | 2020-05-30 17:36 | HMH.EDGENADL ---
ED Disposition Clinical Impression: Pruritus Disposition: Home, Self-Care Condition on Discharge: Good Instructions: DI for Itching Additional Instructions: Moisturizing skin lotion. Hydroxyzine as prescribed for itching. Follow-up with your primary care provider, call tomorrow. Prescriptions: hydrOXYzine pamoate [Vistaril] 25 mg PO Q6HP PRN #20 cap PRN Reason: Itching Transmission Status: Pending to [id number] Referrals: Cong Garcia [Primary Care Provider] - - Critical Care Critical Care Time: No Attestation: On 05/30/20, the high probability of a clinically significant, sudden or life threatening deterioration of the following system(s) required my full and direct attention, intervention and personal management. The time I documented below is in addition to time spent performing reported procedures but includes the following listed in this critical care notation. Medical Decision Making - Medical Records Medical records reviewed: Yes: I reviewed the patient's medical records. MR Comment: CBC and chemistry profile results from today reviewed. Unremarkable. - Rosalio Inquiry Pt receiving controlled substance: No - Lab Data Lab results reviewed: Yes: I reviewed the patient's lab results. General Adult HPI - General Stated complaint: rash Time Seen by Provider: 05/30/20 17:36 - History of Present Illness HPI narrative: Patient complains of generalized itching for 2 days. He has some excoriated areas on his forearms from scratching, but has no discrete rash. His is here with him and they live together and she does not have any rash or itching. He has 3 dogs but none of them have skin conditions currently. He is not on any new medications. He did recently have surgery about a week ago at [facility] in [place] for an abdominal aortic aneurysm. He had an endovascular graft placed, but was not started on any new medications. He was here at the hospital today to get follow-up blood work for his primary care doctor and Dr. Adrian. He says that he called his primary care provider about his itching and they told him to come to the emergency department to make sure I do not have an infection in my bloodstream or anything . No fever. Denies other symptoms. No joint pain or swelling. No URI symptoms. - Related Data Home Medications Medication Instructions Recorded Confirmed Aspirin [Aspirin 81mg EC Tab] 81 mg PO DAILY 05/16/18 02/24/20 Fluticasone Propionate [Flonase 2 spr NS DAILY 05/16/18 02/24/20 50mcg nasal spray 16gm] Omeprazole [Omeprazole 40mg 40 mg PO DAILY 05/16/18 02/24/20 Capsule] Oxycodone HCl/Acetaminophen 1 each PO QID 05/16/18 02/24/20 [Percocet 10-325 mg Tablet] Tiotropium Br/Olodaterol HCl 2 spray IH DAILY 05/16/18 02/24/20 [Stiolto Respimat Inhal [place]] buspirone 5 mg tablet 5 mg PO TID tab 10/14/19 02/24/20 gabapentin 600 mg tablet 800 mg PO QID tab 10/14/19 02/24/20 tamsulosin 0.4 mg capsule 0.4 mg PO DAILY cap 10/14/19 02/24/20 duloxetine 30 mg capsule,delayed 90 mg PO DAILY cap 02/10/20 02/24/20 release Previous Rx's Medication Instructions Recorded isosorbide mononitrate 30 mg 30 mg PO DAILY #30 tab 01/17/20 tablet,extended release 24 hr metoprolol succinate 50 mg 50 mg PO DAILY #90 tab 02/24/20 tablet,extended release 24 hr furosemide 20 mg tablet 20 mg PO DAILY #30 tab 03/16/20 losartan 100 mg tablet 100 mg PO DAILY #30 tab 03/16/20 clopidogrel 75 mg tablet See Rx Instructions .ROUTE 04/10/20 .COMPLEX #90 tab rosuvastatin 20 mg tablet 20 mg PO DAILY #30 tab 04/21/20 hydrOXYzine pamoate [Vistaril] 25 mg PO Q6HP PRN #20 cap 05/30/20 Allergies Allergy/AdvReac Type Severity Reaction Status Date / Time No Known Allergies Allergy Verified 03/16/20 10:09 [facility] History - Hepatitis A Screen Attestation statement:: This patient has been screened for Hepatitis A risk factors. I have reviewed the pat
[2020-05-30 18:04] VITALS: BP 134/77; PULSE 69; O2SAT 96
[2020-05-30 18:13] VITALS: BP 134/77; PULSE 69; RESP 20; TEMP 36.6; O2SAT 95
== END 2020-05-30 18:13 | disposition home or self-care (01) ==
PROVIDERS: Emergency Provider Emergency Medicine; PCP Family Medicine
DX: L29.9 Pruritus, unspecified (principal); K21.9 Gastro-esophageal reflux disease without esophagitis; I10 Essential (primary) hypertension; I71.4 Abdominal aortic aneurysm, without rupture; R06.02 Shortness of breath; I42.9 Cardiomyopathy, unspecified; E78.5 Hyperlipidemia, unspecified; I25.10 Atherosclerotic heart disease of native coronary artery without angina pectoris; F17.210 Nicotine dependence, cigarettes, uncomplicated; Z79.899 Other long term (current) drug therapy
CPT/HCPCS: 36415; 80053; 80061; 82607; 82728; 82746; 83540; 83550; 83880; 84439; 84443; 85025; 93308; 99282

== ENCOUNTER → 2020-06-06 14:12 | Outpatient (CLI) | payer MEDICARE, SELFPAY ==
[2020-06-06 15:45] LABS: Chloride 99 mmol/L (98-107); Sodium 133 mmol/L (136-145)
[2020-06-06 15:46] LABS: Potassium 4.5 mmoL/L (3.5-5.1)
[2020-06-06 15:48] LABS: Blood Urea Nitrogen 13 mg/dl (9-20); Estimated Glomerular Filt Rate 76 ml/min (>60); GFR (African American) 92 ML/MIN (>60)
[2020-06-06 15:49] LABS: Anion Gap 12.5 mEq/L (5-15); Calcium 9.5 mg/dl (8.4-10.2); Carbon Dioxide 26 mmol/L (22.0-30.0); Glucose 110 mg/dl (74-100)
== END ==
PROVIDERS: Visit Provider Nurse Practitioner Family
DX: I42.9 Cardiomyopathy, unspecified (principal)
CPT/HCPCS: 36415; 80048

== ENCOUNTER 2020-06-07 15:35 | Inpatient (IN) | payer MEDICARE, SELFPAY ==
[2020-06-07] VITALS (21 sets, daily range): BP systolic 84–188; BP diastolic 46–110; PULSE 62–120; RESP 16–33; TEMP 35.9–36.8; O2SAT 89–100; BMI 19.8
--- NOTE | 2020-06-07 | IR_ITS ---
APPROVED REPORT Patient Location: Outpatient Weight Checker: ROSEMARY Henning RT (R) PROCEDURES 1. Pocket formation for AICD. 2. Placement of atrial sensing and pacing coil into the right atrial appendage. 3. Placement of a ventricular sensing, pacing and shocking coil in the right ventricular apex. 4. Permanent AICD placement. Placement of left chest tube Endotracheal intubation Cardiac resuscitation INDICATION Ischemic cardiomyopathy, Systolic Congestive Heart Failure, ejection < 30%, [place] Heart Assoication Class 3 Congestive Heart Failure Informed consent was obtained prior to the procedure. COMPLICATIONS Postoperatively patient had a sudden onset decompensation with hypoxemia. Chest x-ray showed large left pneumothorax. At this point a chest tube was emergently placed thereby reexpanding the left chest. Patient received IV as well as endotracheal epinephrine as well as some chest compressions because of hypotension and pulselessness. This was transient and patient responded well to therapy. He was endotracheally intubated by anesthesia and patient was transferred to the intensive care in stable condition Estimated Blood Loss: Less than 10 mls TECHNIQUE 1% Lidocaine with epinephrine used to anesthetized the left anterior aspect of the chest. Scalpel was used to make the initial cutaneous incision while electrocautery was used to dissect down tinto the fascia. The fascia was lifted off the pectoralis muscle and digitally manipulated creating a pocket for the defibrillator. The patient was then placed in Trendelenburg position and the subclavian vein was accessed 2 times via the Selinger technique. A 8 Mosotho sheath was placed under fluoroscopic guidance into the subclavian vein. The dilator was removed from the sheath. Using fluoroscopic guidance, the ventricular lead was placed into the right ventricular apex, screwed and secured into place. Electronic interrogation proved acceptable thresholds and voltage within the lead. Using 3-0 silk, the ventricular lead was then secured into place and sheath peeled away. An additional 6 Mosotho fresh sheath and dilator was placed over the existing wire. Using fluoroscopic guidance, the atrial lead was then placed into the right atrial appendage and screwed and secured in place. Electrical interrogation demonstrated acceptable thresholds and voltage number. The atrial lead was then secured into place using 3-0 silk and sheath peeled away. 1 gram of Ancef was used to flush the pocket. Leads were connected to generator and tested via computer. The defibrillator then secured to the fascia. Monocryl was used to close the subcutaneous layers while luzmaria were used to close the cutaneous layer. A pressure dressing was placed and the patient was transferred to the postop holding area in stable condition for postoperative care. INTERROGATION Generator Model number: NIKKIE EL ICD DR, D233 Generator Serial number: [id number] Atrial lead model number: INGEVITY+ IS-1 52cm, 7841 Atrial lead serial number: [id number] P-wave: 4.0mV Impedence: 542 ohms Threshold: 1.0V@0.4ms Right Ventricular lead model number: RELIANCE 4-FRONT 59cm, 0675 Right Ventricular lead serial number: [id number] R-wave: 20.0mV Impedence: 492 ohms Threshold: 1.0V@0.4ms Pacing Parameters: Mode: DDD Base/Max Track: 60/130 ppm ICD Rate Cutoffs: VF: 200 bpm VT: 170 bpm No diaphragmatic stimulation at 10 volts. IMPRESSION 1. Successful Pocket formation for AICD. 2. Successful Placement of atrial sensing and pacing coil into the right atrial appendage. 3. Successful Placement of a ventricular sensing, pacing and shocking coil in the right ventricular
[2020-06-07 12:42] LABS: Coronavirus 19 IgG Antibody Positive (Negative); Coronavirus 19 IgM Antibody Negative (Negative)
--- NOTE | 2020-06-07 14:10 | XR_ITS ---
PROCEDURE: XR CHEST PORTABLE CLINICAL HISTORY: Confirm pacemaker/AID placement COMPARISON: XA CL PACEMAKER DEFIBRILATOR from 06/07/2020 FINDINGS: 1456 hours. There is a large left-sided pneumothorax with collapse of the left lung and depression of the left hemidiaphragm with mediastinal shift toward the right consistent with left-sided tension pneumothorax. There has been a prior CABG with bipolar pacemaker present from left subclavian approach. Interstitial changes are present on the right with questionable interstitial edema. There are no previous exams available for comparison. No acute bony abnormalities. IMPRESSION: Large left-sided tension pneumothorax. laboratory aide was called with these findings 06/07/2020 at 3:10 p.m.. Dictated by: Dean Esparza MD 06/07/2020 15:11 Dean Esparza MD in [place] 06/07/2020 15:11
--- NOTE | 2020-06-07 15:25 | XR_ITS ---
PROCEDURE: XR CHEST PORTABLE CLINICAL HISTORY: TUBE PLACEMENT Follow-up pneumothorax with chest tube placement COMPARISON: CR XR CHEST PORTABLE from 06/07/2020 FINDINGS: 1535 hours. Endotracheal tube has been placed. The tip is 6.9 cm above the dee at the T3-T4 level. There has been a prior CABG with mild cardiomegaly. Left chest tube is been inserted with marked reduction in the left-sided pneumothorax. There is some subcutaneous emphysema along the left lateral chest wall. There is cardiomegaly with pulmonary congestion and interstitial edema consistent with CHF. Consolidation is present involving the right lower lobe laterally with small effusion. Bipolar pacemaker is present from left subclavian approach. IMPRESSION: Interval insertion of left-sided chest tube with resolved left-sided pneumothorax. Endotracheal tube in good position. CHF with interstitial edema and right lower lobe pneumonia with small effusion Dictated by: Dean Esparza MD 06/07/2020 16:11 Dean Esparza MD in [place] 06/07/2020 16:11
[2020-06-07 15:28] LABS: ABG Base Excess -9.3 mmol/L (-2.4-2.3); ABG HCO3 19.4 mmhg (22.0-26.0); ABG Oxygen Saturation 100 % (90-100); ABG PO2 303.4 mmhg (80-100); ABG TCO2 21.1 mmhg (23-27)
--- NOTE | 2020-06-07 15:58 | SUR.PHASEII ---
1500 PATIENT IS WHEEZING, GIVEN DUO NEB PER ALEXANDRA ERNST. 02 SAT 73% WITH 6L SIMPLE MASK 1509 UNABLE TO REGISTER O2, MASON GEORGE, RN BAGGING PATIENT, RESPIRATORY AT BEDSIDE DR. COLES CALLED TO BEDSIDE 1456 STAT CHEST XRAY, DX TENSION PNEUMOTHORAX PER DR. ELNTZ 1510 ALEXANDRA ERNST ALL TERRAIN VEHICLE TECHNICIAN AT BEDSIDE INTUBATED PATIENT WITH 7.5 ET TUBE 22 AT THE LIP 1509 PULSE CHECK, NO PULSE, CHEST COMPRESSION STATED DR. HENAO PAGED TO BEDSIDE IN STRATEGIC ADVISOR 18 G IV RIGHT AC BY Kym FORREST RN 1513 1 EPI GIVEN PULSE CHECK NO PULSE , CPR STARTED 1516 JULIANO AT BEDSIDE 1516 1 EPI GIVEN PULSE CHECK, NO PULSE CPR STARTED 1518 3 EPI IVP GIVEN 1 BICARB IVP 1 AMP CALCIUM IVP 1000ML NS HUNG 1518 PULSE CHECK , PULSE, SINUS TACH 127, O2 SAT 100% 1520 CHEST TUBE INSERTED TO CHEST WALL BY DR HENAO 28F TROCANTOR CHEST XRAY TO CONFIRM PLACEMENT BLOOD SUGAR 91 GUERRA PLACED
--- NOTE | 2020-06-07 16:07 | HMH.ANESCL ---
[facility] Anesthesia Checklist - Structural Data Admitted From: Home Planned Operative Procedure/s: aicd,pacemaker Consent for Planned Operative Procedure(s) Verified: Yes - Additional verifications Anesthesia Reactions: No Hx Blood Transfusions: No Blood Transfusion Reaction: No - Airway Assessment C-Spine Mobility Assessed: Yes TMJ Mobility Assessed: Yes Dentition: Dentures-poor fitting - Neurological Assessment Level of Consciousness: Awake, Alert, Appropriate - Anesthesia Plan Anesthesia Risk discussed: Yes Anesthesia Plan: Verified ASA Class: III Anesthesia Type: MAC [facility] History I have reviewed the patient's past medical history: Yes Medical History: Reports:: Atherosclerotic Heart Disease, Coronary Artery Disease, Hyperlipidemia, Hypertension Denies:: Cancer, Diabetes Mellitus Type 1, Diabetes Mellitus Type 2, Internal Pacemaker, MRSA, Seizures *Have you ever received a pneumonia vaccine?: Yes *Have you received a flu vaccine this season?: Yes Other Medical History: Denies: Blood Transfusion Reaction Anesthesia experience/problems:: none Laterality Cases: Left: Arthroscopy Shoulder Other Surgeries: Yes: CABG, Cardiac Catheterization, Cardiac Surgery, Colonoscopy, Coronary Stent, EGD, Open Heart Surgery, Other (2 neck surgeries, 2 (L) shoulder surgeries,). No: Pacemaker Amputation: No Fractures: No - *Social History Smoking Status: Current every day smoker Tobacco Type: cigarettes # Packs/Day (cigarettes): 1 #Yrs smoked (if former smoker): 40 Alcohol Intake: never Substance Use Type: denies use *Occupational Status:: retired Housing: house Household Members: spouse *Travel in the last 8 weeks: Inside the [facility] Family Hx:: Cancer, Coronary Artery Disease, Heart Attack
[2020-06-07 16:14] LABS: Oxygen 100% NRB %; Source Right Femoral
[2020-06-07 16:15] LABS: ABG PCO2 55.9 mmhg (35.0-45.0); ABG PH 7.16 mmol/L (7.35-7.45)
[2020-06-07 16:17] LABS: Microscopic, Urine URINE MICROSCOPIC (MICROSCOPIC)
[2020-06-07 16:22] LABS: Appearance,Urine SL CLOUDY (Clear); Blood, Urine 1+ (Negative); Color,Urine YELLOW (Yellow); Glucose,Urine (UA) Negative (Negative); Ketones,Urine Negative (Negative); Leukocyte Esterase,Urine Negative (Negative); Nitrate,Urine Negative (Negative); Protein,Urine 3+ (Negative); Specific Gravity, Urine >= 1.030 (1.005-1.030)
--- NOTE | 2020-06-07 16:31 | PC.NURSE ---
PATIENT DROWSY AND CONFUSED, TAKING PULSE OFF REPEATEDLY, AROUSABLE BY NAME
[2020-06-07 16:32] LABS: ABG Base Excess -4.9 mmol/L (-2.4-2.3); ABG HCO3 21.7 mmhg (22.0-26.0); ABG Oxygen Saturation 94 % (90-100); ABG PCO2 45.9 mmhg (35.0-45.0); ABG PH 7.29 mmol/L (7.35-7.45); ABG PO2 82.6 mmhg (80-100); ABG TCO2 23.1 mmhg (23-27)
--- NOTE | 2020-06-07 16:32 | HMH.PHACONS ---
- Pharmacy Consult Date: 06/07/20 Time: 16:32 Referring provider: DR. COLES Reason for Consult:: VANCOMYCIN DOSING Allergies and ADEs:: Allergies Allergy/AdvReac Type Severity Reaction Status Date / Time No Known Allergies Allergy Verified 06/01/20 11:45 Home Medications:: Home Medications Medication Instructions Recorded Confirmed Type Aspirin [Aspirin 81mg EC Tab] 81 mg PO DAILY 05/16/18 06/01/20 History Fluticasone Propionate [Flonase 2 spr NS DAILY 05/16/18 06/01/20 History 50mcg nasal spray 16gm] Omeprazole [Omeprazole 40mg 40 mg PO DAILY 05/16/18 06/01/20 History Capsule] Oxycodone HCl/Acetaminophen 1 each PO QID 05/16/18 06/01/20 History [Percocet 10-325 mg Tablet] Tiotropium Br/Olodaterol HCl 2 spray IH DAILY 05/16/18 06/01/20 History [Stiolto Respimat Inhal [place]] buspirone 5 mg tablet 5 mg PO TID tab 10/14/19 06/01/20 History gabapentin 600 mg tablet 800 mg PO QID tab 10/14/19 06/01/20 History tamsulosin 0.4 mg capsule 0.4 mg PO DAILY cap 10/14/19 06/01/20 History isosorbide mononitrate 30 mg 30 mg PO DAILY #30 tab 01/17/20 06/01/20 Rx tablet,extended release 24 hr duloxetine 30 mg capsule,delayed 90 mg PO DAILY cap 02/10/20 06/01/20 History release metoprolol succinate 50 mg 50 mg PO DAILY #90 tab 02/24/20 06/01/20 Rx tablet,extended release 24 hr furosemide 20 mg tablet 20 mg PO DAILY #30 tab 03/16/20 06/01/20 Rx losartan 100 mg tablet 100 mg PO DAILY #30 tab 03/16/20 06/01/20 Rx rosuvastatin 20 mg tablet 20 mg PO DAILY #30 tab 04/21/20 06/01/20 Rx hydrOXYzine pamoate [Vistaril] 25 mg PO Q6HP PRN #20 cap 05/30/20 06/01/20 Rx clopidogrel 75 mg tablet 75 mg PO DAILY tab 06/01/20 06/01/20 History spironolactone 25 mg tablet 25 mg PO DAILY #90 tab 06/01/20 06/01/20 Rx Height: 1.85 m Weight: 68.039 kg Laboratory Results:: Laboratory Results - last 24 hr 06/06/20 14:23: SARS-CoV-2 IgG Ab (Rapid) Positive A, SARS-CoV-2 IgM Ab (Rapid) Negative 06/07/20 15:26: Specimen Source Right femoral, O2 % 100% nrb, ABG pH 7.16 L*, ABG pCO2 55.9 H, ABG pO2 303.4 H, ABG HCO3 19.4 L, ABG Total CO2 21.1 L, ABG O2 Saturation 100, ABG Base Excess -9.3 L Medical History: Reports:: Atherosclerotic Heart Disease, Coronary Artery Disease, Hyperlipidemia, Hypertension Denies:: Cancer, Diabetes Mellitus Type 1, Diabetes Mellitus Type 2, Internal Pacemaker, MRSA, Seizures Assessment and Plan - Assessment and plan all Dx Assessment and Plan for all problems:: Pharmacokinetic dosing service Objective: Patient: Floor: Age: 59 yo Serum creatinine: 1.00 mg/dL Height: 72.8 Inches Weight (kg): 68 Assessment: IBW (kg): 79.44 Dosing wt(kg): 68 Estimated Creatinine clearance (ml/min): 75.6 CRCL method: Cockcroft and Gault using ibw(default). Drug selected: Vancomycin Loading dose (mg): 0 Vd (liters): 51.0 (factor used: 0.75 L/kg) [place] (hr-1): 0.067 Half life (hrs): 10.35 Recommended dose: 1000 mg Interval: 12 hrs Infusion time (hrs): 2.0 Predicted peak (mcg/mL): 33.2 Predicted trough (mcg/mL): 16.99 Total body weight is being used for vancomycin dosing. Recommendations: Give Vancomycin 1000 mg q 12 hrs with an expected Cpeak of 33.2 mcg/ml and an expected Ctrough of 16.99 mcg/ml Thank you for the consult, will continue to follow. Signature: UNIQUE BRITTD
[2020-06-07 16:35] LABS: Oxygen 50 %; Tidal Volume 300
[2020-06-07 16:36] LABS: PEEP 5; Pressure Support 8; Source R FEMORAL; Vent Rate 20
--- NOTE | 2020-06-07 16:45 | HMH.PULMCON ---
*Reason for consult:: Hypoxic respiratory failure, pneumothorax *History of present illness: Mr. Mohr is a 59-year-old male with significant comorbidities including COPD on Stiolto inhaler, coronary artery disease status post CABG with graft thrombosis with a STEMI and revascularization around April 2018 presented to hospital today for an outpatient loop recorder placement which is complicated by pneumothorax status post coding with chest compressions chest tube placement. Patient was intubated and was admitted to the ICU and pulmonary was called for further management. [facility] History Medical History: Reports:: Atherosclerotic Heart Disease, Coronary Artery Disease, Hyperlipidemia, Hypertension Denies:: Cancer, Diabetes Mellitus Type 1, Diabetes Mellitus Type 2, Internal Pacemaker, MRSA, Seizures *Have you ever received a pneumonia vaccine?: Yes *Have you received a flu vaccine this season?: Yes Other Medical History: Denies: Blood Transfusion Reaction Anesthesia experience/problems:: none Laterality Cases: Left: Arthroscopy Shoulder Other Surgeries: Yes: CABG, Cardiac Catheterization, Cardiac Surgery, Colonoscopy, Coronary Stent, EGD, Open Heart Surgery, Other (2 neck surgeries, 2 (L) shoulder surgeries,). No: Pacemaker Amputation: No Fractures: No - *Social History Smoking Status: Current every day smoker Tobacco Type: cigarettes # Packs/Day (cigarettes): 1 #Yrs smoked (if former smoker): 40 Alcohol Intake: never Substance Use Type: denies use *Occupational Status:: retired Housing: house Household Members: spouse *Travel in the last 8 weeks: Inside the [place] Family Hx:: Cancer, Coronary Artery Disease, Heart Attack ROS - Review of Systems Review of systems:: unable to obtain Unable to obtain as patient was intubated Meds Home Medications Medication Instructions Recorded Confirmed Type Aspirin [Aspirin 81mg EC Tab] 81 mg PO DAILY 05/16/18 06/01/20 History Fluticasone Propionate [Flonase 2 spr NS DAILY 05/16/18 06/01/20 History 50mcg nasal spray 16gm] Omeprazole [Omeprazole 40mg 40 mg PO DAILY 05/16/18 06/01/20 History Capsule] Oxycodone HCl/Acetaminophen 1 each PO QID 05/16/18 06/01/20 History [Percocet 10-325 mg Tablet] Tiotropium Br/Olodaterol HCl 2 spray IH DAILY 05/16/18 06/01/20 History [Stiolto Respimat Inhal [place]] buspirone 5 mg tablet 5 mg PO TID tab 10/14/19 06/01/20 History gabapentin 600 mg tablet 800 mg PO QID tab 10/14/19 06/01/20 History tamsulosin 0.4 mg capsule 0.4 mg PO DAILY cap 10/14/19 06/01/20 History isosorbide mononitrate 30 mg 30 mg PO DAILY #30 tab 01/17/20 06/01/20 Rx tablet,extended release 24 hr duloxetine 30 mg capsule,delayed 90 mg PO DAILY cap 02/10/20 06/01/20 History release metoprolol succinate 50 mg 50 mg PO DAILY #90 tab 02/24/20 06/01/20 Rx tablet,extended release 24 hr furosemide 20 mg tablet 20 mg PO DAILY #30 tab 03/16/20 06/01/20 Rx losartan 100 mg tablet 100 mg PO DAILY #30 tab 03/16/20 06/01/20 Rx rosuvastatin 20 mg tablet 20 mg PO DAILY #30 tab 04/21/20 06/01/20 Rx hydrOXYzine pamoate [Vistaril] 25 mg PO Q6HP PRN #20 cap 05/30/20 06/01/20 Rx clopidogrel 75 mg tablet 75 mg PO DAILY tab 06/01/20 06/01/20 History spironolactone 25 mg tablet 25 mg PO DAILY #90 tab 06/01/20 06/01/20 Rx Allergies Allergy/AdvReac Type Severity Reaction Status Date / Time No Known Allergies Allergy Verified 06/01/20 11:45 Exam - HENMT Exam HENMT: Present: normocephalic, atraumatic - Eye Exam Eyes:: Present: eyelids normal - Neck Exam Neck:: Present: thyroid normal - Respiratory Exam Respiratory:: Present: crackles, wheezing - Cardiovascular Exam Cardiac:: Present: S1, S2 - GI Exam GI:: Present: soft - Skin Exam Skin: Present: warm, no rash - Neurological Exam Intubated, sedated. Not following commands. - Extremities Exam Extremities: Present: no cyanosis, no clubbing, edema Internal Medicine - CN: Reslt - AB
[2020-06-07 16:47] LABS: Adenovirus,PCR Not Detected (NotDetected); Bordetella Pertussis Not Detected (NotDetected); Chlamydophila Pneumoniae, PCR Not Detected (NotDetected); Coronavirus 19, PCR Not Detected (NotDetected); Coronavirus 229E Not Detected (NotDetected); Coronavirus NL63 Not Detected (NotDetected); Coronavirus OC43 Not Detected (NotDetected); Coronovirus HKU1,PCR Not Detected (NotDetected); Human Metapneumovirus Not Detected (NotDetected); Influenza A, PCR Not Detected (NotDetected); Influenza AH1, 2009 Not Detected (NotDetected); Influenza AH1, PCR Not Detected (NotDetected); Influenza AH3,PCR Not Detected (NotDetected); Influenza B, PCR Not Detected (NotDetected); Mycoplasma Pneumoniae, PCR Not Detected (NotDetected); Parainfluenza 1, PCR Not Detected (NotDetected); Parainfluenza 2, PCR Not Detected (NotDetected); Parainfluenza 3, PCR Not Detected (NotDetected); Parainfluenza 4, PCR Not Detected (NotDetected); Respiratory Syncytial Virus Not Detected (NotDetected); Rhinovirus/Enterovirus Not Detected (NotDetected)
[2020-06-07 17:01] LABS: WBC,Urine 50-100 #/hpf (0-3)
[2020-06-07 17:02] LABS: Bacteria,Urine 3+ /lpf; Bilirubin,Urine Negative (Negative); RBC,Urine 50-100 #/hpf (0-3)
--- NOTE | 2020-06-07 17:15 | XR_ITS ---
PROCEDURE: XR CHEST PORTABLE CLINICAL HISTORY: advanced et tube 3cm Endotracheal tube evaluation COMPARISON: CR XR CHEST PORTABLE from 06/07/2020 CR XR CHEST PORTABLE from 06/07/2020 FINDINGS: 1731 hours Endotracheal tube is at the T4-T5 level 6.6 cm above the dee. Left-sided chest tube remains in place with tiny left apical pneumothorax. Bipolar pacemaker noted. There has been a prior CABG with cardiomegaly. Right lower lobe pneumonia with small effusion is present. The pneumonia appears slightly worse. There is diffuse chronic interstitial changes with suspected superimposed edema. Subcutaneous emphysema noted along the left chest wall IMPRESSION: Endotracheal tube in good position. Left chest tube in place with tiny apical pneumothorax. Slight worsening right lower lobe pneumonia. Diffuse pulmonary interstitial changes with possible superimposed edema Dictated by: Dean Esparza MD 06/08/2020 05:47 Dean Esparza MD in [place] 06/08/2020 05:47
--- NOTE | 2020-06-07 17:54 | PC.NURSE ---
patient arrived to floor at 1543 in fair condition. weak bilateral pedal pulses. new dressing placed over chest tube site. vaseline pads, gauze and tape. new pleurovac placed. original vac had a leak noted a lot of bubbling in chamber, since changing out the canister patient noted to only have bubbling with respirations, tube continue to drain appropriately. rectal temp of 96.6. r manual bp of 98/60 and l manual of 98/58. only response is biting of tube when advancing of et tube. breathing over vent currently. you stated to do light sedation if it requires, and do a sbt in morning. you had et tube advanced 3cm and xray obtained. patient remains unresponsive at this time. deanna gave orders for a vanc consult and julian castro was contacted.
--- NOTE | 2020-06-07 18:41 | PC.NURSE ---
anneurysm surgery 1 month ago, patient stated he had small tin blood clots in l arm that cardiology was aware of
[2020-06-07 21:27] LABS: POC Glucose,Bedside 91 (70-110)
[2020-06-08] VITALS (40 sets, daily range): BP systolic 96–169; BP diastolic 69–104; PULSE 60–94; RESP 12–27; TEMP 36.7–37.3; O2SAT 89–100; BMI 20.1
--- NOTE | 2020-06-08 00:23 | PC.NURSE ---
He is intubated and lightly sedated. He is starting to open his eyes for short periods of time. RASS score -2, CPOT 2. HOB elevated to 30 degrees and ambu bag is at the bedside. Vent settings are as follows: AC mode, TV 420, PEEP 5, R 20, FiO2 50%. Chest tube is present on left side with 20cm of suction. Serosanguineous drainage present in chest tube tubing. He is s/p pacemaker placement with DSG over site. DSG with serosanguinous drainage. He is being turned and repositioned q 2 hours and oral care provided q 2 hours. Mottling present on bilateral knees and feet. Glucose checked at 2100; result was 91. OG placed but not used at this time as placement will not be verified until chest x-ray later this am.
--- NOTE | 2020-06-08 03:01 | PC.NURSE ---
ETT moved to left side via respiratory.
--- NOTE | 2020-06-08 03:49 | PC.NURSE ---
He did awaken and open his eyes for >10 seconds after his bath. Plan is to turn his sedation off at 0400.
--- NOTE | 2020-06-08 05:00 | XR_ITS ---
PROCEDURE: XR CHEST PORTABLE CLINICAL HISTORY: Pt intubated. Follow-up pneumothorax COMPARISON: CT CT ANGIO ABDOMEN from 11/10/2019 CR XR CHEST PORTABLE from 06/07/2020 CR XR CHEST PORTABLE from 06/07/2020 CR XR CHEST PORTABLE from 06/07/2020 FINDINGS: 0314 hours Endotracheal tube tip is in good position at the T3-T4 level. Orogastric tube tip is not visible on the film but is below the GE junction. Left-sided chest tube remains in place with a tiny apical pneumothorax. There is cardiomegaly in this patient that has had a prior CABG with bipolar pacemaker present. Right lower lobe pneumonia once again noted and appears slightly worse. Chronic interstitial changes are present. There may be some superimposed pulmonary edema the right hemidiaphragm is slightly elevated. There is a small right pleural effusion No acute bony abnormalities. IMPRESSION: Supporting tubes remain in good position. There is only a tiny left apical pneumothorax No change right lower lobe pneumonia with small effusion. Prominence of the pulmonary interstitium which may in part be due to chronic changes with possible superimposed edema Dictated by: Dean Esparza MD 06/08/2020 05:43 Dean Esparza MD in [place] 06/08/2020 05:43
--- NOTE | 2020-06-08 06:47 | HMH.GSPN ---
Subjective Narrative: Unchanged this a.m. Progress Note: A&P (1) Pneumothorax, left Status: Acute Assessment and plan: Persistent air leak. Continue chest tube to suction Exam Vital signs and Labs for Last 24 Hours: Temp Pulse Resp BP Pulse Ox 98.1 F 79 21 147/98 H 100 06/08/20 03:56 06/08/20 06:35 06/08/20 05:00 06/08/20 06:35 06/08/20 06:35 Laboratory Results - last 24 hr 06/06/20 14:23: SARS-CoV-2 IgG Ab (Rapid) Positive A, SARS-CoV-2 IgM Ab (Rapid) Negative 06/07/20 15:26: Specimen Source Right femoral, O2 % 100% nrb, ABG pH 7.16 L*, ABG pCO2 55.9 H, ABG pO2 303.4 H, ABG HCO3 19.4 L, ABG Total CO2 21.1 L, ABG O2 Saturation 100, ABG Base Excess -9.3 L 06/07/20 16:29: Specimen Source R femoral, O2 % 50, ABG pH 7.29 L, ABG pCO2 45.9 H, ABG pO2 82.6, ABG HCO3 21.7 L, ABG Total CO2 23.1, ABG O2 Saturation 94, ABG Base Excess -4.9 L, Vent Rate 20, Tidal Volume 300, PEEP 5 06/07/20 16:38: Chlamy pneumoniae PCR Not detected, Adenovirus (PCR) Not detected, B. pertussis DNA (PCR) Not detected, Coronavirus OC43 (PCR) Not detected, Coronavirus HKU1 (PCR) Not detected, Coronavirus 229E (PCR) Not detected, SARS-CoV-2 (PCR) Not detected, Coronavirus NL63 (PCR) Not detected, Human Metapneumovir PCR Not detected, Influenza A (H1) PCR Not detected, Influ A (H1N1/09) PCR Not detected, Influenza A (H3) PCR Not detected, Influenza Type A (PCR) Not detected, Influenza Type B (PCR) Not detected, M. pneumoniae (PCR) Not detected, Parainfluenza 1 (PCR) Not detected, Parainfluenza 2 (PCR) Not detected, Parainfluenza 3 (PCR) Not detected, Parainfluenza 4 (PCR) Not detected, RSV (PCR) Not detected, Entero/Rhino (PCR) Not detected 06/07/20 20:39: POC Glucose 91 06/07/20 : Urine Color Yellow, Urine Appearance Sl cloudy, Urine pH 6.0, Ur Specific [place] >= 1.030, Urine Protein 3+, Urine Glucose (UA) Negative, Urine Ketones Negative, Urine Blood 1+, Urine Nitrate Negative, Urine Bilirubin Negative, Urine Urobilinogen 1.0, Ur Leukocyte Esterase Negative, Urine RBC 50-100, Urine WBC 50-100, Ur Squamous Epith Cells 5-10, Urine Bacteria 3+ I & O for Last 24 hours: Intake & Output 06/05/20 06/06/20 06/07/20 06/08/20 11:59 11:59 11:59 11:59 Intake Total 681 / 681 Output Total 2580 / 2580 Balance -1899 / -1899 Weight 150 lb 152 lb 2 oz Microbiology Reports for the Last 24 Hours: Microbiology 06/07/20 Unknown Sputum - Endotracheal Tube Aspirate Gram Stain - Final - Constitutional Comments: Intubated/sedated - *Routine Respiratory Exam Comments: Persistent air leak
[2020-06-08 07:06] LABS: Anion Gap 11.5 mEq/L (5-15); Blood Urea Nitrogen 23 mg/dl (9-20); Calcium 8.8 mg/dl (8.4-10.2); Carbon Dioxide 23 mmol/L (22.0-30.0); Chloride 101 mmol/L (98-107); Creatinine Clearance Estimated 59 mL/min (50-200); Estimated Glomerular Filt Rate 56 ml/min (>60); GFR (African American) 68 ML/MIN (>60); Glucose 79 mg/dl (74-100); Potassium 4.5 mmoL/L (3.5-5.1); Sodium 131 mmol/L (136-145)
[2020-06-08 07:35] LABS: ABG Base Excess -5.4 mmol/L (-2.4-2.3); ABG HCO3 19.2 mmhg (22.0-26.0); ABG Oxygen Saturation 98 % (90-100); ABG PCO2 30.6 mmhg (35.0-45.0); ABG PH 7.42 mmol/L (7.35-7.45); ABG PO2 116.6 mmhg (80-100); ABG TCO2 20.1 mmhg (23-27)
[2020-06-08 07:38] LABS: Basophils % 0.2 % (0.1-2.0); Hematocrit 35.3 % (42.0-52.0); Hemoglobin 10.5 g/dL (14.1-18.0); Lymphocytes # 1.4 K/mm3 (0.7-4.5); Lymphocytes % 15.2 % (10-50); Mean Corpuscular HGB Conc 29.9 g/dL (31.8-35.4); Mean Corpuscular Hemoglobin 22.7 pg (27.0-31.2); Mean Platelet Volume 9.9 fl (7.4-10.4); Monocytes # 0.9 K/mm3 (0.1-1.0); Monocytes % 9.9 % (1.7-9.3); Neutrophils % 74.7 % (37.0-80.0); Platelet Count 115 K/mm3 (142-424); Red Blood Count 4.64 M/mm3 (4.60-6.20); Red Cell Distribution Width 19.7 % (11.5-17.5); White Blood Count 9.4 K/mm3 (4.8-10.8)
--- NOTE | 2020-06-08 07:39 | HMH.PHAVTE ---
[facility] Pharmacy VTE Monitoring - Patient Demographics Admission date: 06/07/20 Report Date: 06/08/20 Time: 07:39 Allergies/Adverse Reactions: Patient Allergies methylprednisolone [From Solu-Medrol] Allergy (Verified 06/07/20 17:41) Height: 1.85 m Weight: 69.003 kg Patient Problems: Current Active Problems Pneumothorax, left (Acute) - VTE Risk Labs: VTE Related Lab Results BUN 23 mg/dl (9-20) H D 06/08/20 05:59 Creatinine 1.30 mg/dl (0.66-1.25) H D 06/08/20 05:59 Estimated Creat Clear 59 mL/min (50-200) 06/08/20 05:59 Was VTE Risk Assessment Performed: Yes VTE Score: 8 VTE Risk Level: Moderate Risk - Prophylaxis VTE Prophylaxis Ordered?: Yes Types of VTE Prophylaxis: TEDS Knee High Location of Applied Device: Bilateral Lower Extremeties
[2020-06-08 07:41] LABS: Oxygen 50% %; Tidal Volume spont; Vent Rate 25
[2020-06-08 07:42] LABS: Allen's Test Non Applicable; PEEP 5; Pressure Support 8; Source Right Femoral
--- NOTE | 2020-06-08 07:57 | HMH.PHAINT ---
MEDICATION RECONCILIATION COMPLETED ON PATIENT USING EXTERNAL FILL HISTORY FROM PHARMACY, LIST FROM CARDIOLOGY, AND KITTY REPORT. -GERARDO LEE, UNIQUED
--- NOTE | 2020-06-08 09:10 | PC.NURSE ---
Addendum entered by Radha Healy RN 06/08/20 12:31: bed alarm is on for safety precautions Original Note: pt extubated by RT (Britt). Dr. Rendon @ BS. Pt placed on 3L NC. Neb treatment completed for wheezing. Small leak in chest tube. Pt continues to be extremely agitated/restless. Not following commands. Movements do not seem purposeful. Is taking 4 staff members to keep him in the bed. Dr. Rendon ordered Haldol 5mg Q8 prn for agitation/restlessness.
--- NOTE | 2020-06-08 09:23 | HMH.HP ---
*Admission Date: 06/07/20 *Chief complaint: post code *History of present illness: 59-year-old male with significant comorbidities including COPD, coronary artery disease status post CABG with graft thrombosis with a STEMI and revascularization around April 2018 presented to hospital today for an outpatient procedure. The patient was undergoing permanent AICD placement and the procedure was complicated by tension pneumothorax. The patient did code and had CPR which resulted in spontaneous circulation. The patient was intubated and placed on the ventilator. chest tube placed per surgery. cardiology and pulmonary consults placed [facility] History I have reviewed the patient's past medical history: Yes Medical History: Reports:: Atherosclerotic Heart Disease, Congestive Heart Failure, Coronary Artery Disease, Hyperlipidemia, Hypertension, Internal Pacemaker, Myocardial Infarction, Peripheral Artery Disease Denies:: Cancer, Diabetes Mellitus Type 1, Diabetes Mellitus Type 2, MRSA, Seizures *Have you ever received a pneumonia vaccine?: Yes *Have you received a flu vaccine this season?: Yes Other Medical History: Reports: Arthritis. Denies: Blood Transfusion Reaction Anesthesia experience/problems:: none Laterality Cases: Left: Arthroscopy Shoulder Other Surgeries: Yes: CABG (x2), Cardiac Catheterization, Cardiac Surgery, Colonoscopy, Coronary Stent, EGD, Open Heart Surgery, Pacemaker, Other (2 neck surgeries, 2 (L) shoulder surgeries,) Amputation: No Fractures: No - *Social History Last grade of school completed: 9th or 10th Smoking Status: Current every day smoker Tobacco Type: cigarettes # Packs/Day (cigarettes): 1 #Yrs smoked (if former smoker): 40 Alcohol Intake: former Substance Use Type: denies use *Occupational Status:: disabled Housing: house Household Members: spouse *Travel in the last 8 weeks: None Family Hx:: Unable to obtain Review of Systems - Review of Systems Review of systems:: unable to obtain, pertinent systems reviewed and negative unless documented below Meds Home Medications Medication Instructions Recorded Confirmed Type Aspirin [Aspirin 81mg EC Tab] 81 mg PO DAILY 05/16/18 06/07/20 History Omeprazole [Omeprazole 40mg 40 mg PO DAILY 05/16/18 06/07/20 History Capsule] Oxycodone HCl/Acetaminophen 1 each PO QID 05/16/18 06/07/20 History [Percocet 10-325 mg Tablet] Tiotropium Br/Olodaterol HCl 2 spray IH DAILY 05/16/18 06/07/20 History [Stiolto Respimat Inhal [place]] buspirone 5 mg tablet 5 mg PO TID tab 10/14/19 06/07/20 History tamsulosin 0.4 mg capsule 0.4 mg PO HS cap 10/14/19 06/08/20 History duloxetine 30 mg capsule,delayed 30 mg PO TID cap 02/10/20 06/08/20 History release hydrOXYzine pamoate [Vistaril] 25 mg PO Q6HP PRN #20 cap 05/30/20 06/07/20 Rx clopidogrel 75 mg tablet 75 mg PO DAILY tab 06/01/20 06/07/20 History Metoprolol Succinate [Metoprolol 50 mg PO DAILY 06/07/20 06/07/20 History Succinate 50mg Tablet*] Rosuvastatin Calcium 20 mg PO DAILY 06/07/20 06/07/20 History Furosemide [Furosemide 20mg Tab*] 20 mg PO DAILY 06/08/20 06/08/20 History Gabapentin [Neurontin 800mg Tab] 800 mg PO QID 06/08/20 06/08/20 History Allergies Allergy/AdvReac Type Severity Reaction Status Date / Time methylprednisolone Allergy Verified 06/07/20 17:41 [From Solu-Medrol] Exam Vital signs and Labs for Last 24 Hours: Temp Pulse Resp BP Pulse Ox 98.8 F 76 27 H 155/104 H 100 06/08/20 08:00 06/08/20 08:00 06/08/20 08:00 06/08/20 08:00 06/08/20 08:00 Laboratory Results - last 24 hr 06/06/20 14:23: SARS-CoV-2 IgG Ab (Rapid) Positive A, SARS-CoV-2 IgM Ab (Rapid) Negative 06/07/20 15:26: Specimen Source Right femoral, O2 % 100% nrb, ABG pH 7.16 L*, ABG pCO2 55.9 H, ABG pO2 303.4 H, ABG HCO3 19.4 L, ABG Total CO2 21.1 L, ABG O2 Saturation 100, ABG Base Excess -9.3 L 06/07/20 16:29: Specimen Source R femoral, O2 % 50, ABG pH 7.29 L, ABG pCO2 45.9 H, ABG pO2 82.6, A
--- NOTE | 2020-06-08 09:38 | HMH.PULMPN ---
Internal Medicine - PN: Subj *Date: 06/08/20 *Time: 09:38 Interval history: No acute respiratory events overnight. Patient remains on minimal vent settings. Exam - Constitutional Constitutional:: Present: no acute distress - HENMT Exam HENMT: Present: normocephalic, atraumatic - Eye Exam Eyes:: Present: eyelids normal - Neck Exam Neck:: Present: thyroid normal - Respiratory Exam Comments: Bilateral diffuse wheezing with coarse breath sounds heard. Patient extubated today. Protecting his airway. However not following commands. - Cardiovascular Exam Cardiac:: Present: S1, S2 - GI Exam GI:: Present: soft - Skin Exam Skin: Present: warm, no rash - Neurological Exam Patient extubated today off sedation from this morning. However patient not following commands appropriately. Moving all extremities. Patient baseline unknown however given patient came to the procedure this appears definitely not the patient baseline. - Extremities Exam Extremities: Present: no cyanosis, no clubbing Assessment and Plan (1) Pneumothorax, left Status: Acute Category: Medical Code(s): J93.9 - Pneumothorax, unspecified (2) Pneumonia Status: Acute Qualifiers: Pneumonia type: aspiration pneumonia Laterality: right Lung location: lower lobe of lung Category: Medical Code(s): J18.9 - Pneumonia, unspecified organism - Assessment and plan all Dx Assessment and Plan for all problems:: #Acute hypoxic respiratory failure needing mechanical ventilation: #COPD exacerbation: #Community-acquired pneumonia #Pneumothorax status post chest tube placement: 59-year-old carries a diagnosis of COPD CAD presented for an outpatient procedure complicated by pneumothorax that is post chest tube placement. Patient also had coded with CPR , chest replacement resulted in return of spontaneous circulation. Initial blood gas showed mixed metabolic and respiratory acidosis that improved however both gases were drawn before increasing her's tidal volume. We will closely monitor. Interval update: Patient respiratory remained stable with minimal vent settings. ABG this morning showed metabolic acidosis with respiratory compensation with a PCO2 35 and pH of 7.42. Patient successfully extubated. Protecting his airways. Saturating 95%. However patient mentation not appropriate, not following any commands, moving all his extremities. Unknown baseline status however given patient came for an outpatient procedure this likely not appear to be his baseline status. WWhether patient had any brain injury status post coding / whether he has been withdrawing from any drugs is unclear. We will closely monitor. Have ordered Haldol 5mg IV every 8hrs as needed for his agitation. Plan: -Recommend discontinuing vancomycin and cefazolin and initiate ceftriaxone & azithromycin for community-acquired pneumonia unless antibiotics were initiated for other infectious sources -UDS -The patient mentation were not to improve, will recommend obtaining a CT head -N.p.o. with strict aspiration precautions -Patient successfully extubated, will continue oxygen supplementation with sat goal of 88 to 92%. Patient were to have resp decompensation will place him on CPAP. -- IV Lasix 40 mg once today - Continue chest tube to -20 cm suction. Chest tube leak significantly improved. - DuoNebs every 4 hours along with budesonide every 12 scheduled #Thank you for involving pulmonary in this patient care. Rest of the medical management as per primary team. We will continue to follow. Critical care time of 35 minutes
--- NOTE | 2020-06-08 10:00 | PC.NURSE ---
@ [facility]. She confirmed home med list and reports that he takes more Percocet than he should. She denies that he drinks alcohol. Also denies any non-prescription drug abuse. She brought in home med list. I confirmed list and fixed any errors in computer. Haldol 5mg given @ 0930. Pt is calm and peaceful. Pt now on 50% venti mask.
--- NOTE | 2020-06-08 11:06 | HMH.PNCARD ---
Subjective Date: 06/08/20 Time: 09:30 Principal diagnosis: tension pneumothorax Interval history: This is a 59-year-old white gentleman who presented to the hospital yesterday for an outpatient procedure. The patient was undergoing permanent AICD placement and the procedure was complicated by tension pneumothorax. The patient did code and had CPR which resulted in spontaneous circulation. The patient was intubated and on the ventilator. He has been extubated this morning. The patient is very combative and agitated. He is not following any commands or answering any questions. He does have a history of coronary artery disease, COPD and AAA repair. The patient has pulled out his NG tube. His chest tube maral in place and intact. He is status post AICD placement yesterday. His dressing is still intact to the AICD site. No signs of infection noted. Exam Vital signs and Labs for Last 24 Hours: Temp Pulse Resp BP Pulse Ox 98.8 F 77 12 137/91 H 100 06/08/20 08:00 06/08/20 10:49 06/08/20 10:00 06/08/20 10:00 06/08/20 10:00 Laboratory Results - last 24 hr 06/06/20 14:23: SARS-CoV-2 IgG Ab (Rapid) Positive A, SARS-CoV-2 IgM Ab (Rapid) Negative 06/07/20 15:26: Specimen Source Right femoral, O2 % 100% nrb, ABG pH 7.16 L*, ABG pCO2 55.9 H, ABG pO2 303.4 H, ABG HCO3 19.4 L, ABG Total CO2 21.1 L, ABG O2 Saturation 100, ABG Base Excess -9.3 L 06/07/20 16:29: Specimen Source R femoral, O2 % 50, ABG pH 7.29 L, ABG pCO2 45.9 H, ABG pO2 82.6, ABG HCO3 21.7 L, ABG Total CO2 23.1, ABG O2 Saturation 94, ABG Base Excess -4.9 L, Vent Rate 20, Tidal Volume 300, PEEP 5 06/07/20 16:38: Chlamy pneumoniae PCR Not detected, Adenovirus (PCR) Not detected, B. pertussis DNA (PCR) Not detected, Coronavirus OC43 (PCR) Not detected, Coronavirus HKU1 (PCR) Not detected, Coronavirus 229E (PCR) Not detected, SARS-CoV-2 (PCR) Not detected, Coronavirus NL63 (PCR) Not detected, Human Metapneumovir PCR Not detected, Influenza A (H1) PCR Not detected, Influ A (H1N1/09) PCR Not detected, Influenza A (H3) PCR Not detected, Influenza Type A (PCR) Not detected, Influenza Type B (PCR) Not detected, M. pneumoniae (PCR) Not detected, Parainfluenza 1 (PCR) Not detected, Parainfluenza 2 (PCR) Not detected, Parainfluenza 3 (PCR) Not detected, Parainfluenza 4 (PCR) Not detected, RSV (PCR) Not detected, Entero/Rhino (PCR) Not detected 06/07/20 20:39: POC Glucose 91 06/07/20 : Urine Color Yellow, Urine Appearance Sl cloudy, Urine pH 6.0, Ur Specific [place] >= 1.030, Urine Protein 3+, Urine Glucose (UA) Negative, Urine Ketones Negative, Urine Blood 1+, Urine Nitrate Negative, Urine Bilirubin Negative, Urine Urobilinogen 1.0, Ur Leukocyte Esterase Negative, Urine RBC 50-100, Urine WBC 50-100, Ur Squamous Epith Cells 5-10, Urine Bacteria 3+ 06/08/20 05:59: WBC 9.4, RBC 4.64, Hgb 10.5 L, Hct 35.3 L, MCV 76.0 L, MCH 22.7 L, MCHC 29.9 L, RDW 19.7 H, Plt Count 115 L, MPV 9.9, Neut % (Auto) 74.7, Lymph % (Auto) 15.2, [place] % (Auto) 9.9 H, Eos % (Auto) 0.0 L, Baso % (Auto) 0.2, Neut # (Auto) 7.0, Lymph # (Auto) 1.4, [place] # (Auto) 0.9, Eos # (Auto) 0.0, Baso # (Auto) 0.0 06/08/20 05:59: Sodium 131 L, Potassium 4.5, Chloride 101, Carbon Dioxide 23, Anion Gap 11.5, BUN 23 H D, Creatinine 1.30 H D, Estimated Creat Clear 59, Estimated GFR 56 L, Est GFR ( Amer) 68 D, Glucose 79, Calcium 8.8 06/08/20 07:00: Specimen Source Right femoral, O2 % 50%, ABG pH 7.42, ABG pCO2 30.6 L, ABG pO2 116.6 H, ABG HCO3 19.2 L, ABG Total CO2 20.1 L, ABG O2 Saturation 98, ABG Base Excess -5.4 L, Dean Test Non applicable, Vent Rate 25, Tidal Volume spont, PEEP 5 I & O for Last 24 hours: Intake & Output 06/05/20 06/06/20 06/07/20 06/08/20 23:59 23:59 23:59 23:59 Intake Total 207 / 264 474 / 474 Output Total 2150 / 2190 715 / 715 Balance -1943 / -1926 -241 / -241 Weight 150 lb 0.005 oz 152 lb 2 oz Microbiology Reports for the Last 24 Hours: Microbiology 06/07/20 Unknown Sputum - Endotracheal Tube
--- NOTE | 2020-06-08 11:34 | PC.NURSE ---
Dr. Adrian and Nathalia Olson APRN @ [facility] to speak to discuss POC.
--- NOTE | 2020-06-08 13:08 | PC.NURSE ---
increased O2 to 4L NC r/t desaturation to 80%. Sat now 94% on 4L NC. continues @ [facility].
--- NOTE | 2020-06-08 13:32 | PC.NURSE ---
O2 sat 98%. Decreased liter flow to 3L NC.
[2020-06-08 15:06] LABS: Benzodiazepines Screen,Urine Positive ng/ml (<200)
[2020-06-08 15:07] LABS: Amphetamine/Metha Screen,Urine Negative ng/ml (<1000); Barbiturates Screen,Urine Negative ng/ml (<200)
[2020-06-08 15:08] LABS: Cannabinoid Screen,Urine Negative ng/ml (<50)
[2020-06-08 15:09] LABS: Cocaine Screen,Urine Negative ng/ml (<300); Methadone Screen,Urine Negative ng/ml (<300)
[2020-06-08 15:10] LABS: Opiate Screen,Urine Negative ng/ml (<300); Phencyclidine Screen,Urine Negative ng/ml (<25)
--- NOTE | 2020-06-08 18:15 | PC.NURSE ---
shift note: pt was extubated @ 0910 this morning and placed on 50% venti mask. He has since been weaned to 3L NC and is tolerating well with sats in high 90s. Productive cough noted that he swallows. Continues to be NPO. Left chest tube with small leak and is to 20 sx. Dressing CDI. Pacemaker site dressing has been changed today. Small amount of sangenouse drainage noted. Yadav catheter with great UOP secondary to diuretic. At one point, he diuresed 1L over 1hr. NSR with intermittent PVCs on tele. HTN noted. After extubation, he was not mentating appropriately. He is now verbal and following commands. Will get agitated/restless (pulling at lines and climbing out of bed) requiring prn Morphine and prn Haldol. Has received 2 doses of Haldol 5mg and 2 doses of prn Morphine 4mg this shift. He is getting Morphine 4mg Q6 ATC. Right DP pulse is dopplerable. Right PT, left DP, and left PT pulses are absent. BLE are cool and mottled. Bridge of nose is dusky. reports that skin discoloration is normal. Family has been @ [facility] all day. They left for the day @ 181.
[2020-06-08 19:27] LABS: POC Glucose,Bedside 91 (70-110)
[2020-06-09] VITALS (21 sets, daily range): BP systolic 85–164; BP diastolic 52–107; PULSE 69–100; RESP 12–18; TEMP 36.3–36.8; O2SAT 84–100; BMI 20.1
--- NOTE | 2020-06-09 00:23 | PC.NURSE ---
He has awakened at several different times with confusion. He tries to get out of bed and is unable to be redirected. Chest tube is in place on his left side. He is voiding per f/c. Urine is yellow, clear.
--- NOTE | 2020-06-09 05:42 | PC.NURSE ---
He turns himself in bed. NSR on telemetry. He continues on 3LPM n.c. He awakens periodically with confusion. He continues to move around in bed and get up with disregard to chest tube. Unable to redirect. Dr. Khan gave order to give haldol early.
--- NOTE | 2020-06-09 07:05 | HMH.GSPN ---
Subjective Narrative: resting Progress Note: A&P (1) Pneumothorax, left Status: Acute Assessment and plan: Airleak persists with chest tube to suction. The tip of the chest tube has moderate angulation. Maintain chest tube in current position for now; however, the possibility of slight withdrawal/repositioning remains. (2) Pacemaker Status: Acute (3) History of myocardial infarction Status: Chronic (4) Tobacco use disorder Status: Chronic Exam Vital signs and Labs for Last 24 Hours: Temp Pulse Resp BP Pulse Ox 98.8 F 77 15 133/92 H 100 06/08/20 20:47 06/09/20 06:31 06/08/20 19:31 06/09/20 06:31 06/09/20 06:31 Laboratory Results - last 24 hr 06/08/20 05:59: WBC 9.4, RBC 4.64, Hgb 10.5 L, Hct 35.3 L, MCV 76.0 L, MCH 22.7 L, MCHC 29.9 L, RDW 19.7 H, Plt Count 115 L, MPV 9.9, Neut % (Auto) 74.7, Lymph % (Auto) 15.2, [place] % (Auto) 9.9 H, Eos % (Auto) 0.0 L, Baso % (Auto) 0.2, Neut # (Auto) 7.0, Lymph # (Auto) 1.4, [place] # (Auto) 0.9, Eos # (Auto) 0.0, Baso # (Auto) 0.0 06/08/20 05:59: Sodium 131 L, Potassium 4.5, Chloride 101, Carbon Dioxide 23, Anion Gap 11.5, BUN 23 H D, Creatinine 1.30 H D, Estimated Creat Clear 59, Estimated GFR 56 L, Est GFR ( Amer) 68 D, Glucose 79, Calcium 8.8 06/08/20 07:00: Specimen Source Right femoral, O2 % 50%, ABG pH 7.42, ABG pCO2 30.6 L, ABG pO2 116.6 H, ABG HCO3 19.2 L, ABG Total CO2 20.1 L, ABG O2 Saturation 98, ABG Base Excess -5.4 L, Dean Test Non applicable, Vent Rate 25, Tidal Volume spont, PEEP 5 06/08/20 09:30: Urine Opiates Screen Negative, Urine Methadone Screen Negative, Ur Barbituates Screen Negative, Ur Phencyclidine Scrn Negative, Ur Amphetamines Screen Negative, U Benzodiazepines Scrn Positive H, Urine Cocaine Screen Negative, U Marijuana (THC) Screen Negative 06/08/20 19:20: POC Glucose 91 06/09/20 04:50: Vancomycin Trough 15.0 H I & O for Last 24 hours: Intake & Output 06/06/20 06/07/20 06/08/20 06/09/20 11:59 11:59 11:59 11:59 Intake Total 681 / 681 1869 / 1869 Output Total 3215 / 4280 3460 / 3460 Balance -2534 / -3599 -1591 / -1591 Weight 150 lb 152 lb 2 oz Microbiology Reports for the Last 24 Hours: Microbiology 06/07/20 Unknown Urine,Catheterized Urine Culture - Preliminary NO GROWTH AFTER 24 HOURS - Constitutional no acute distress - *Routine Respiratory Exam Comments: Extubated. Airleak persists
--- NOTE | 2020-06-09 07:34 | DIET.NUTRFU ---
Nutrition consult received, pt intubated, nutrition assessment completed. Pt with COPD and CHF, need for respiratory support and cautious fluids/sodium. Pt with opiate dependance and on low range of healthy weight, with hyponatremia and poor renal function. Will cautiously advance feeds low and slow and monitor for refeeding. Upon TF initiation order recommend initiating volume feeds. Recommend initiating continuous tube feeding regimen of Pulmocare 1.5 at 20ml/h and advance by 10ml/h q 8h as tolerated to goal rate of 46ml/h. This regimen provides 1656kcal, 69g protein, 117g cho, 103g fat, and 866ml free water at goal rate. Pt currently receiving IVF, recommend minimal water flushes of 30-60ml q 4h for tube irrigation. When IVF dc'd, recommend 230ml q 6h water flushes to meet additional fluid needs not provided by formula. Pt with high agitation, please monitor HOB as closely as possible.
[2020-06-09 08:18] LABS: POC Glucose,Bedside 91 (70-110)
--- NOTE | 2020-06-09 08:29 | HMH.ACPN2 ---
Internal Medicine - PN: Subj *Date: 06/09/20 *Time: 08:29 Interval history: pt awake and alert this am. Was able to give name and states she feels fine Exam Vital signs and Labs for Last 24 Hours: Temp Pulse Resp BP Pulse Ox 98.8 F 77 15 133/92 H 100 06/08/20 20:47 06/09/20 06:31 06/08/20 19:31 06/09/20 06:31 06/09/20 06:31 Laboratory Results - last 24 hr 06/07/20 15:21: POC Glucose 91 06/08/20 09:30: Urine Opiates Screen Negative, Urine Methadone Screen Negative, Ur Barbituates Screen Negative, Ur Phencyclidine Scrn Negative, Ur Amphetamines Screen Negative, U Benzodiazepines Scrn Positive H, Urine Cocaine Screen Negative, U Marijuana (THC) Screen Negative 06/08/20 19:20: POC Glucose 91 06/09/20 04:50: Vancomycin Trough 15.0 H I & O for Last 24 hours: Intake & Output 06/06/20 06/07/20 06/08/20 06/09/20 11:59 11:59 11:59 11:59 Intake Total 681 / 681 1869 / 1869 Output Total 3215 / 4280 3460 / 3460 Balance -2534 / -3599 -1591 / -1591 Weight 150 lb 152 lb 2 oz 152 lb 1.903 oz Microbiology Reports for the Last 24 Hours: Microbiology 06/07/20 Unknown Urine,Catheterized Urine Culture - Preliminary NO GROWTH AFTER 24 HOURS - Constitutional no acute distress, thin - *Routine HEENT Exam Head: Present: normocephalic Eye: Present: PERRL ENT: Present: mucous membranes moist - *Routine Neck Exam Present: supple. Absent: lymphadenopathy - *Routine Respiratory Exam Present: decreased breath sounds, wheezes Comments: chest tube in place left chest - *Routine Cardiovascular Exam Present: RRR - *Routine Abdominal Exam Present: soft, normoactive bowel sounds. Absent: tenderness - *Routine Extremities Exam Present: normal capillary refill. Absent: cyanosis, clubbing, edema - *Routine Skin Exam Present: warm. Absent: rash Comments: discoloration to rt foot, pulses intact - *Routine Neurological Exam Present: alert - Routine Psychiatric Exam Present: normal affect Assessment and Plan (1) Pneumothorax, left Status: Acute Category: Medical Code(s): J93.9 - Pneumothorax, unspecified (2) Pacemaker Status: Acute Category: Medical Code(s): Z95.0 - Presence of cardiac pacemaker (3) History of myocardial infarction Status: Chronic Category: Medical Code(s): I25.2 - Old myocardial infarction (4) Tobacco use disorder Status: Chronic Category: Medical Code(s): F17.200 - Nicotine dependence, unspecified, uncomplicated - Assessment and plan all Dx Assessment and Plan for all problems:: rounded with dr bueno all orders per dr bueno
--- NOTE | 2020-06-09 10:04 | HMH.PULMPN ---
Internal Medicine - PN: Subj *Date: 06/09/20 *Time: 10:04 Interval history: No acute respite events overnight. Patient respiratory status continued to improve. Exam - Constitutional Constitutional:: Present: no acute distress, comfortable - HENMT Exam HENMT: Present: atraumatic - Eye Exam Eyes:: Present: eyelids normal - Neck Exam Neck:: Present: thyroid normal - Respiratory Exam Respiratory:: Present: able to speak in complete sentences, no respiratory distress, normal respiratory effort. Absent: wheezing - Cardiovascular Exam Cardiac:: Present: S1, S2 - GI Exam GI:: Present: soft, no hepatosplenomegaly - Skin Exam Skin: Present: warm, no rash, dry - Neurological Exam Neurological: Present: alert, awake, normal cognition - Extremities Exam Extremities: Present: no cyanosis, no clubbing, no edema - Psychiatric Exam Psychiatric: Present: normal affect Assessment and Plan (1) Pneumothorax, left Status: Acute Category: Medical Code(s): J93.9 - Pneumothorax, unspecified (2) Pacemaker Status: Acute Category: Medical Code(s): Z95.0 - Presence of cardiac pacemaker (3) History of myocardial infarction Status: Chronic Category: Medical Code(s): I25.2 - Old myocardial infarction (4) Tobacco use disorder Status: Chronic Category: Medical Code(s): F17.200 - Nicotine dependence, unspecified, uncomplicated - Assessment and plan all Dx Assessment and Plan for all problems:: #Acute hypoxic respiratory failure needing mechanical ventilation: #COPD exacerbation: #Community-acquired pneumonia #Pneumothorax status post chest tube placement: 59-year-old carries a diagnosis of COPD CAD presented for an outpatient procedure complicated by pneumothorax that is post chest tube placement. Patient also had coded with CPR , chest replacement resulted in return of spontaneous circulation. Initial blood gas showed mixed metabolic and respiratory acidosis that improved however both gases were drawn before increasing her's tidal volume. Patient respiratory improved however patient was successfully extubated within 18 hours after intubation. Patient respiratory status remained stable, now on 3 L nasal cannula saturating 95 to 96%. Chest clear to auscultate. Patient x-ray also showed concerning right lower lobe pulmonary infiltrate and was started on ceftriaxone and azithromycin that will be continued for a total of 7 days. Patient mentation also significantly improved, this morning alert and oriented x3 and following commands appropriately. Chest tube on day 0 noted to have continuously however today chest tube noted to have only with coughing. Continue to remain on -20 of suction. Chest x-ray from yesterday showed tiny residual apical pneumothorax Plan: - Follow with chest x-ray upright - Continue ceftriaxone azithromycin, can be changed to levofloxacin on discharge for a total of 5 days - Continue DuoNebs every 6 and Versed every 12 schedule, can be changed to triple inhaler therapy on discharge - Volume optimization as per primary team #Thank you for involving pulmonary in this patient care. Rest of the medical management as per primary team. We will continue to follow.
--- NOTE | 2020-06-09 10:09 | XR_ITS ---
PROCEDURE: XR CHEST PORTABLE CLINICAL HISTORY: Pneumothorax Follow-up pneumothorax COMPARISON: CR XR CHEST PORTABLE from 06/07/2020 CR XR CHEST PORTABLE from 06/07/2020 CR XR CHEST PORTABLE from 06/08/2020 FINDINGS: Left-sided chest tube remains in place. No obvious pneumothorax. There remains some subcutaneous emphysema along the left lateral chest wall. Bipolar pacemaker is present from left subclavian approach. Right lower lobe pneumonia with effusion once again noted. The effusion appears slightly larger. There has been a prior CABG with mild cardiomegaly. No acute bony abnormalities. IMPRESSION: As above, left-sided chest tube in place without evidence of pneumothorax Slight increase in size of right pleural effusion with right lower lobe pneumonia Dictated by: Dean Esparza MD 06/09/2020 10:56 Dean Esparza MD in [facility] 06/09/2020 10:56
--- NOTE | 2020-06-09 10:18 | HMH.PNCARD ---
Subjective Date: 06/09/20 Time: 09:00 Principal diagnosis: tension pneumothorax Interval history: 59-year-old man who presented to the hospital one day ago for an outpatient procedure. The patient was undergoing permanent AICD placement and the procedure was complicated by tension pneumothorax. The patient did code and had CPR which resulted in spontaneous circulation. Patient is resting quietly with no problems. He does have a history of coronary artery disease, COPD and AAA repair. His chest tube maral in place and intact. Managed by general surgery and pulmonology. he is status post AICD placement yesterday. PPM dressing is still intact to the AICD site. No signs of infection noted. Patient denies chest pain, tightness or pressure. Patient does complain of slight shortness of breath. Patient is noted to be on oxygen via nasal cannula. No swelling of the lower extremities noted. Patient is able to answer simple questions. Yadav catheter has been DC'd. Patient is urinating with a urinal without any difficulty. phototypesetting equipment monitor reveals sinus rhythm with an occasional PAC. Intermittent paced beats noted. Patient is noted to be slightly hypertensive this morning. But patient is resting quietly. Discussed plan of care with Dr. Adrian. Patient may have regular diet. Morphine will be stopped. Patient is prescribed Percocet 10 mg p.o. every 6 hours for pain. This is the dose he does take at home. Patient may be moved to stepdown. Please notify cardiology of any changes in patient's condition. Thank you for allowing cardiology to participate in the care of this patient. Exam Vital signs and Labs for Last 24 Hours: Temp Pulse Resp BP Pulse Ox 98.1 F 82 13 158/85 H 96 06/09/20 08:00 06/09/20 10:00 06/09/20 10:00 06/09/20 10:00 06/09/20 10:00 Laboratory Results - last 24 hr 06/07/20 15:21: POC Glucose 91 06/08/20 09:30: Urine Opiates Screen Negative, Urine Methadone Screen Negative, Ur Barbituates Screen Negative, Ur Phencyclidine Scrn Negative, Ur Amphetamines Screen Negative, U Benzodiazepines Scrn Positive H, Urine Cocaine Screen Negative, U Marijuana (THC) Screen Negative 06/08/20 19:20: POC Glucose 91 06/09/20 04:50: Vancomycin Trough 15.0 H I & O for Last 24 hours: Intake & Output 06/06/20 06/07/20 06/08/20 06/09/20 23:59 23:59 23:59 23:59 Intake Total 207 / 264 1942 400 / 400 Output Total 2150 / 2190 4260 / 4285 265 / 265 Balance -1943 / -1926 -2317 / -2292 135 / 135 Weight 150 lb 0.005 oz 152 lb 2 oz 152 lb 1.903 oz Microbiology Reports for the Last 24 Hours: Microbiology 06/07/20 Unknown Urine,Catheterized Urine Culture - Preliminary NO GROWTH AFTER 24 HOURS - Constitutional mild distress, thin, cooperative - *Routine HEENT Exam Head: Present: normocephalic ENT: Present: mucous membranes moist - *Routine Neck Exam Present: supple, full ROM, normal carotid upstroke. Absent: JVD, carotid bruit, lymphadenopathy - *Routine Respiratory Exam Present: accessory muscle use, CTA bilaterally Comments: Chest tube noted and in place. - *Routine Cardiovascular Exam Present: RRR, Normal S1, Normal S2, other Comments: PPM in place. Dressing intact. - *Routine Abdominal Exam Present: soft, normoactive bowel sounds. Absent: guarding - *Routine Extremities Exam Present: full ROM, pulses intact, normal capillary refill. Absent: edema - *Routine Skin Exam Present: intact, dry, warm - *Routine Neurological Exam Present: alert, oriented X3, CN II-XII intact, moving all extremities, normal speech - Routine Psychiatric Exam Present: normal affect, normal thought process Progress Note: A&P (1) Pneumothorax, left Status: Acute (2) Pacemaker Status: Acute (3) History of myocardial infarction Status: Chronic (4) Tobacco use disorder Status: Chronic Assessment and Plan for All Diagnoses::
--- NOTE | 2020-06-09 10:38 | HMH.PHACONS ---
- Pharmacy Consult Date: 06/09/20 Time: 10:38 Referring provider: DR. GALDAMEZ Reason for Consult:: VANCOMYCIN TROUGH LEVEL Allergies and ADEs:: Allergies Allergy/AdvReac Type Severity Reaction Status Date / Time methylprednisolone Allergy Verified 06/07/20 17:41 [From Solu-Medrol] Home Medications:: Home Medications Medication Instructions Recorded Confirmed Type Aspirin [Aspirin 81mg EC Tab] 81 mg PO DAILY 05/16/18 06/07/20 History Omeprazole [Omeprazole 40mg 40 mg PO DAILY 05/16/18 06/07/20 History Capsule] Oxycodone HCl/Acetaminophen 1 each PO QID 05/16/18 06/07/20 History [Percocet 10-325 mg Tablet] Tiotropium Br/Olodaterol HCl 2 spray IH DAILY 05/16/18 06/07/20 History [Stiolto Respimat Inhal [place]] buspirone 5 mg tablet 5 mg PO TID tab 10/14/19 06/07/20 History tamsulosin 0.4 mg capsule 0.4 mg PO HS cap 10/14/19 06/08/20 History duloxetine 30 mg capsule,delayed 30 mg PO TID cap 02/10/20 06/08/20 History release hydrOXYzine pamoate [Vistaril] 25 mg PO Q6HP PRN #20 cap 05/30/20 06/07/20 Rx clopidogrel 75 mg tablet 75 mg PO DAILY tab 06/01/20 06/07/20 History Metoprolol Succinate [Metoprolol 50 mg PO DAILY 06/07/20 06/07/20 History Succinate 50mg Tablet*] Rosuvastatin Calcium 20 mg PO DAILY 06/07/20 06/07/20 History Furosemide [Furosemide 20mg Tab*] 20 mg PO DAILY 06/08/20 06/08/20 History Gabapentin [Neurontin 800mg Tab] 800 mg PO QID 06/08/20 06/08/20 History Height: 1.85 m Weight: 69 kg Laboratory Results:: Laboratory Results - last 24 hr 06/07/20 15:21: POC Glucose 91 06/08/20 09:30: Urine Opiates Screen Negative, Urine Methadone Screen Negative, Ur Barbituates Screen Negative, Ur Phencyclidine Scrn Negative, Ur Amphetamines Screen Negative, U Benzodiazepines Scrn Positive H, Urine Cocaine Screen Negative, U Marijuana (THC) Screen Negative 06/08/20 19:20: POC Glucose 91 06/09/20 04:50: Vancomycin Trough 15.0 H Medical History: Reports:: Atherosclerotic Heart Disease, Congestive Heart Failure, Coronary Artery Disease, Hyperlipidemia, Hypertension, Internal Pacemaker, Myocardial Infarction, Peripheral Artery Disease Denies:: Cancer, Diabetes Mellitus Type 1, Diabetes Mellitus Type 2, MRSA, Seizures Assessment and Plan (1) Pneumothorax, left Status: Acute Category: Medical Code(s): J93.9 - Pneumothorax, unspecified (2) Pacemaker Status: Acute Category: Medical Code(s): Z95.0 - Presence of cardiac pacemaker (3) History of myocardial infarction Status: Chronic Category: Medical Code(s): I25.2 - Old myocardial infarction (4) Tobacco use disorder Status: Chronic Category: Medical Code(s): F17.200 - Nicotine dependence, unspecified, uncomplicated - Assessment and plan all Dx Assessment and Plan for all problems:: BASED ON VANCOMYCIN TROUGH LEVEL OF 15.0, RECOMMEND CONTINUING VANCOMYCIN 1 GM IV Q12H. HOWEVER, VANCOMYCIN IS DISCONTINUED THIS MORNING. PATIENT WILL RECEIVE AZITHROMYCIN AND ROCEPHIN.
--- NOTE | 2020-06-09 17:40 | PC.NURSE ---
shift note: pt has been stable this shift. Is A&O. Will ask the same question over and over @ times. NSR with intermittent PVCs on tele. Pacer spikes noted @ times. HTN noted. Poor circulation on toes and fingers resulting in pulse ox on left ear. Sats have remained above 90% on 3L NC. Bilateral lungs with wheezing. Productive cough noted. Will stand up by the side of the bed to use urinal. Mimimal UOP noted today. UOP concentrated. Left chest tube to 20 sx. Dressing was changed today. Sutures are in place. No s/s of infection noted. Left pacemaker site with luzmaria. Dressing changed today and is CDI. Is tolerating a reg diet. No dysphagia noted. Bed alarm remains on.
[2020-06-10] VITALS (17 sets, daily range): BP systolic 118–154; BP diastolic 54–106; PULSE 70–89; RESP 14–20; TEMP 36.3–36.9; O2SAT 92–100; BMI 19.3
--- NOTE | 2020-06-10 08:32 | XR_ITS ---
PROCEDURE: XR CHEST PORTABLE CLINICAL HISTORY: PTX Follow-up pneumothorax COMPARISON: CR XR CHEST PORTABLE from 06/07/2020 CR XR CHEST PORTABLE from 06/08/2020 CR XR CHEST PORTABLE from 06/09/2020 FINDINGS: 0839 hours. Left-sided chest tube remains in place. No evidence of pneumothorax. Bipolar pacemaker is present. There is cardiomegaly. There has been a prior CABG. Small to medium right-sided effusion once again noted. There remains prominence of the interstitium with some interstitial edema. IMPRESSION: 1. Left-sided chest tube remains in place without evidence of pneumothorax. 2. Small to medium-sized right effusion with some persistent interstitial edema. Dictated by: Dean Esparza MD 06/10/2020 09:15 Dean Esparza MD in [facility] 06/10/2020 09:15
--- NOTE | 2020-06-10 08:34 | HMH.GSPN ---
Subjective Patient reports: feels better Progress Note: A&P (1) Pneumothorax, left Status: Acute Assessment and plan: Air leak persist; however, as shown improvement over the past 24 hours. Increase suction to 40 secondary to persistent air leak Repeat chest films (2) Pacemaker Status: Acute (3) History of myocardial infarction Status: Chronic (4) Tobacco use disorder Status: Chronic Exam Vital signs and Labs for Last 24 Hours: Temp Pulse Resp BP Pulse Ox 98.4 F 84 18 150/81 H 100 06/10/20 08:00 06/10/20 08:00 06/10/20 08:00 06/10/20 08:00 06/10/20 08:00 I & O for Last 24 hours: Intake & Output 06/07/20 06/08/20 06/09/20 06/10/20 11:59 11:59 11:59 11:59 Intake Total 681 / 681 1869 / 1869 1989 / 1989 Output Total 3215 / 4280 3660 / 3660 840 / 840 Balance -2534 / -3599 -1791 / -1791 1150 / 1150 Weight 150 lb 152 lb 2 oz 152 lb 1.903 oz 146 lb 5 oz Microbiology Reports for the Last 24 Hours: Microbiology 06/07/20 Unknown Sputum - Endotracheal Tube Aspirate Gram Stain - Final 06/07/20 Unknown Sputum - Endotracheal Tube Aspirate Sputum Culture - Preliminary 06/07/20 Unknown Urine,Catheterized Urine Culture - Final NO GROWTH AFTER 48 HOURS - Constitutional no acute distress - *Routine Respiratory Exam Absent: respiratory distress Comments: Chest tube leak with deep breathing and cough. The airleak is no longer continuous.
--- NOTE | 2020-06-10 08:48 | HMH.ACPN2 ---
Internal Medicine - PN: Subj *Date: 06/10/20 *Time: 08:48 Interval history: doing better - will check labs - has chest tube - followed by surg Exam Vital signs and Labs for Last 24 Hours: Temp Pulse Resp BP Pulse Ox 98.4 F 84 18 150/81 H 100 06/10/20 08:00 06/10/20 08:00 06/10/20 08:00 06/10/20 08:00 06/10/20 08:00 I & O for Last 24 hours: Intake & Output 06/07/20 06/08/20 06/09/20 06/10/20 11:59 11:59 11:59 11:59 Intake Total 681 / 681 1869 / 1869 1989 Output Total 3215 / 4280 3660 / 3660 840 / 840 Balance -2534 / -3599 -1791 / -1791 1150 / 1150 Weight 150 lb 152 lb 2 oz 152 lb 1.903 oz 146 lb 5 oz Microbiology Reports for the Last 24 Hours: Microbiology 06/07/20 Unknown Sputum - Endotracheal Tube Aspirate Gram Stain - Final 06/07/20 Unknown Sputum - Endotracheal Tube Aspirate Sputum Culture - Preliminary 06/07/20 Unknown Urine,Catheterized Urine Culture - Final NO GROWTH AFTER 48 HOURS - Constitutional no acute distress, thin - *Routine HEENT Exam Head: Present: normocephalic Eye: Present: EOMI, PERRL ENT: Present: mucous membranes dry - *Routine Neck Exam Absent: JVD - *Routine Respiratory Exam Present: decreased breath sounds, other (has chest tube ) - *Routine Cardiovascular Exam Present: RRR - *Routine Abdominal Exam Present: soft - *Routine Extremities Exam Present: normal capillary refill - *Routine Skin Exam Present: intact - *Routine Neurological Exam Present: alert, CN II-XII intact - Routine Psychiatric Exam Present: normal affect Assessment and Plan (1) Pneumothorax, left Status: Acute Category: Medical Code(s): J93.9 - Pneumothorax, unspecified (2) Pacemaker Status: Acute Category: Medical Code(s): Z95.0 - Presence of cardiac pacemaker (3) History of myocardial infarction Status: Chronic Category: Medical Code(s): I25.2 - Old myocardial infarction (4) Tobacco use disorder Status: Chronic Category: Medical Code(s): F17.200 - Nicotine dependence, unspecified, uncomplicated (5) Anemia Status: Acute Qualifiers: Anemia type: unspecified type Qualified Code(s): D64.9 - Anemia, unspecified Category: Medical Code(s): D64.9 - Anemia, unspecified (6) Thrombocytopenia Status: Acute Category: Medical Code(s): D69.6 - Thrombocytopenia, unspecified (7) Renal insufficiency Status: Acute Category: Medical Code(s): N28.9 - Disorder of kidney and ureter, unspecified (8) Hyponatremia Status: Acute Category: Medical Code(s): E87.1 - Hypo-osmolality and hyponatremia (9) COVID-19 virus IgG antibody detected Status: Acute Category: Medical Code(s): R76.8 - Other specified abnormal immunological findings in serum (10) History of coronary artery bypass graft Problem details: 01/11/2020 [facility] Status: Chronic Category: Surgical Code(s): Z95.1 - Presence of aortocoronary bypass graft (11) CAD (coronary artery disease), [place] coronary artery Status: Chronic Qualifiers: [place] vs. transplanted heart: [place] heart Associated angina: with other forms of angina Qualified Code(s): I25.118 - Atherosclerotic heart disease of [place] coronary artery with other forms of angina pectoris Category: Medical Code(s): I25.10 - Atherosclerotic heart disease of [place] coronary artery without angina pectoris
[2020-06-10 12:05] LABS: Basophils % 0.2 % (0.1-2.0); Eosinophils # 0.1 K/mm3 (0.0-0.4); Eosinophils % 1.4 % (0.1-12.0); Hematocrit 33.1 % (42.0-52.0); Hemoglobin 9.7 g/dL (14.1-18.0); Lymphocytes # 1.2 K/mm3 (0.7-4.5); Mean Corpuscular HGB Conc 29.2 g/dL (31.8-35.4); Mean Corpuscular Hemoglobin 22.8 pg (27.0-31.2); Mean Corpuscular Volume 77.8 fl (80-94); Mean Platelet Volume 10.9 fl (7.4-10.4); Monocytes # 0.4 K/mm3 (0.1-1.0); Neutrophils # 5.5 K/mm3 (1.8-7.8); Neutrophils % 76.5 % (37.0-80.0); Platelet Count 93 K/mm3 (142-424); Red Blood Count 4.25 M/mm3 (4.60-6.20); Red Cell Distribution Width 19.9 % (11.5-17.5); White Blood Count 7.2 K/mm3 (4.8-10.8)
[2020-06-10 12:18] LABS: Chloride 102 mmol/L (98-107); Potassium 3.1 mmoL/L (3.5-5.1); Sodium 136 mmol/L (136-145)
[2020-06-10 12:21] LABS: Anion Gap 8.1 mEq/L (5-15); Blood Urea Nitrogen 23 mg/dl (9-20); Carbon Dioxide 29 mmol/L (22.0-30.0); Creatinine Clearance Estimated 74 mL/min (50-200); Estimated Glomerular Filt Rate 76 ml/min (>60); GFR (African American) 92 ML/MIN (>60)
[2020-06-10 12:22] LABS: Calcium 8.8 mg/dl (8.4-10.2); Glucose 100 mg/dl (74-100)
--- NOTE | 2020-06-10 17:10 | PC.NURSE ---
PT IS RESTING IN BED. PT WAS ALERT AND ORIENTED X3 T/O THE SHIFT BUT HOWEVER HAS BEEN HAVING HALLUCINATIONS. 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 PT COULD EASILY BE REORIENTED THIS MORNING BUT THIS AFTERNOON AROUND 1445 PT BECAME VERY AGITATED AND WAS PULLING AT HIS CORDS AND STATED TO HIS . IT IS TIME FOR ME TO GO HOME. PT THREATENED TO HIT HIS . STATED THAT HE COULD GO HOME WITH HIS CHEST TUBE IN AND HIS OTHER DOCTOR WOULD TAKE CARE OF IT. 4 NURSING STAFF WAS IN THE ROOM AT THE TIME TRYING TO CALM PT. PT CONTINUED TO PULL AT ALL HIS TUBES. REFUSED TO LEAVE IS O2 NC ON. NOTIFIED AND HE ORDERED ATIVAN 1 MG IV Q6H PRN. WITH IN A FEW MINUTES AFTER PT RECEIVED THE ATIVAN HE STARTED TO CALM DOWN AND APOLOGIZED TO THE STAFF FOR HIS BEHAVIOR. PT IS NOW ASLEEP AND FAMILY HAS LEFT FOR THE DAY. ACCORDING TO FAMILY PT HAS NOT SLEPT WELL AT HOME SINCE HE'S HAD HIS HEART SURGERY. O2 SATURATION HAS MAINTAINED 96-100% ON 3 L NC. NSR ON THE MONITOR WITH FREQUENT PAC'S. OCCASIONAL PACER SPIKES. DUSKY/WARM BLE. RT PEDAL PULSE WITH DOPPLER. CHEST TUBE NOTED TO THE LT SIDE AT 40. PT HAS A AIR LEAK THAT IS AWARE OF. DRESSING C/D/I. PT HAS ONLY VOIDED X1 THIS SHIFT. PT HAS NOT BEEN EATING BUT HAS BEEN TAKING SIPS OF WATER. EVERY TIME STAFF HAS ATTEMPTED TO SET UP PT'S MEAL TRAY HE STATES I DON'T WANT IT, I THINK YOU SHOULD EAT IT BEFORE IT GETS COLD. NEW IV ACCESS NOTED TO THE RAC. PT BROKE IV TUBING THIS SHIFT. WILL CONTINUE TO MONITOR.
[2020-06-11] VITALS (18 sets, daily range): BP systolic 118–162; BP diastolic 67–97; PULSE 78–124; RESP 9–21; TEMP 36.3–36.8; O2SAT 97–100; BMI 19.9
--- NOTE | 2020-06-11 06:00 | XR_ITS ---
PROCEDURE: XR CHEST PORTABLE CLINICAL HISTORY: PTX Follow-up pneumothorax COMPARISON: CR XR CHEST PORTABLE from 06/08/2020 CR XR CHEST PORTABLE from 06/09/2020 CR XR CHEST PORTABLE from 06/10/2020 FINDINGS: Left-sided chest tube remains in place. No evidence of pneumothorax. Small to medium-sized right effusion with right lower lobe pneumonia once again noted unchanged. Prior CABG. Bipolar pacemaker is present from left subclavian approach. Mild interstitial edema noted on the left. No acute bony abnormalities. IMPRESSION: Overall no change left-sided chest tube, bipolar pacemaker, right pleural effusion with right lower lobe pneumonia. No evidence of pneumothorax Dictated by: Dean Esparza MD 06/11/2020 07:13 Dean Esparza MD in [facility] 06/11/2020 07:13
[2020-06-11 06:27] LABS: Basophils % 0.4 % (0.1-2.0); Eosinophils # 0.2 K/mm3 (0.0-0.4); Eosinophils % 2.5 % (0.1-12.0); Hematocrit 30.4 % (42.0-52.0); Hemoglobin 9.1 g/dL (14.1-18.0); Lymphocytes # 1.1 K/mm3 (0.7-4.5); Lymphocytes % 17.8 % (10-50); Mean Corpuscular HGB Conc 29.8 g/dL (31.8-35.4); Mean Corpuscular Hemoglobin 22.8 pg (27.0-31.2); Mean Corpuscular Volume 76.4 fl (80-94); Mean Platelet Volume 9.5 fl (7.4-10.4); Monocytes # 0.5 K/mm3 (0.1-1.0); Monocytes % 8.4 % (1.7-9.3); Neutrophils # 4.5 K/mm3 (1.8-7.8); Neutrophils % 70.9 % (37.0-80.0); Platelet Count 77 K/mm3 (142-424); Red Blood Count 3.98 M/mm3 (4.60-6.20); White Blood Count 6.4 K/mm3 (4.8-10.8)
[2020-06-11 06:32] LABS: Chloride 104 mmol/L (98-107); Potassium 3.2 mmoL/L (3.5-5.1); Sodium 135 mmol/L (136-145)
[2020-06-11 06:35] LABS: Blood Urea Nitrogen 18 mg/dl (9-20); Creatinine Clearance Estimated 84 mL/min (50-200); Estimated Glomerular Filt Rate 86 ml/min (>60); GFR (African American) 104 ML/MIN (>60)
[2020-06-11 06:36] LABS: Anion Gap 7.2 mEq/L (5-15); Calcium 8.6 mg/dl (8.4-10.2); Carbon Dioxide 27 mmol/L (22.0-30.0); Glucose 89 mg/dl (74-100)
--- NOTE | 2020-06-11 08:24 | P.PN_ITS ---
Subjective Narrative: Resting Progress Note: A&P (1) Pneumothorax, left Status: Acute Assessment and plan: Persistent leak with breathing/coughing. This may represent a slow to heal lung parenchyma injury...a perforated bleb is also possible. He also has an e ffusive component with 340 mL output over the last 12 hours. No pneumothorax noted on current chest film. The kinking of the distal chest tube is no longer apparent. The tip of the chest tube is in the apex of the lung. Chest tube will be placed back to [address] chest CT within the next 24 to 48 hours if leak persists (2) Pacemaker Status: Acute (3) History of myocardial infarction Status: Chronic (4) Tobacco use disorder Status: Chronic (5) Anemia Status: Acute (6) Thrombocytopenia Status: Acute (7) Renal insufficiency Status: Acute (8) Hyponatremia Status: Acute (9) COVID-19 virus IgG antibody detected Status: Acute (10) History of coronary artery bypass graft Problem details: 01/11/2020 [facility] Status: Chronic (11) CAD (coronary artery disease), [place] coronary artery Status: Chronic Exam Vital signs and Labs for Last 24 Hours: Temp Pulse Resp BP Pulse Ox 98.3 F 88 9 L 148/95 H 100 06/11/20 07:54 06/11/20 07:54 06/11/20 07:54 06/11/20 07:54 06/11/20 07:54 Laboratory Results - last 24 hr 06/10/20 11:45: WBC 7.2, RBC 4.25 L, Hgb 9.7 L, Hct 33.1 L, MCV 77.8 L, MCH 22.8 L, MCHC 29.2 L, RDW 19.9 H, Plt Count 93 L, MPV 10.9 H, Neut % (Auto) 76.5, Lymph % (Auto) 16.0, [place] % (Auto) 6.0, Eos % (Auto) 1.4, Baso % (Auto) 0.2, Neut # (Auto) 5.5, Lymph # (Auto) 1.2, [place] # (Auto) 0.4, Eos # (Auto) 0.1, Baso # (Auto) 0.0 06/10/20 11:45: Sodium 136, Potassium 3.1 L D, Chloride 102, Carbon Dioxide 29 D, Anion Gap 8.1, BUN 23 H, Creatinine 1.00 D, Estimated Creat Clear 74, Estimated GFR 76, Est GFR ( Amer) 92 D, Glucose 100, Calcium 8.8 06/11/20 06:15: WBC 6.4, RBC 3.98 L, Hgb 9.1 L, Hct 30.4 L, MCV 76.4 L, MCH 22.8 L, MCHC 29.8 L, RDW 20.0 H, Plt Count 77 L, MPV 9.5, Neut % (Auto) 70.9, Lymph % (Auto) 17.8, [place] % (Auto) 8.4, Eos % (Auto) 2.5, Baso % (Auto) 0.4, Neut # (Auto) 4.5, Lymph # (Auto) 1.1, [place] # (Auto) 0.5, Eos # (Auto) 0.2, Baso # (Auto) 0.0 06/11/20 06:15: Sodium 135 L, Potassium 3.2 L, Chloride 104, Carbon Dioxide 27, Anion Gap 7.2, BUN 18, Creatinine 0.90, Estimated Creat Clear 84, Estimated GFR 86, Est GFR ( Amer) 104, Glucose 89, Calcium 8.6 I & O for Last 24 hours: Intake & Output 06/08/20 06/09/20 06/10/20 06/11/20 11:59 11:59 11:59 11:59 Intake Total 681 / 681 1869 / 1869 1989 / 1989 180 / 180 Output Total 3215 / 4280 3660 / 3660 840 / 840 1215 / 1215 Balance -2534 / -3599 -1791 / -1791 1150 / 1150 -1035 / -1035 Weight 152 lb 2 oz 152 lb 1.903 oz 146 lb 5 oz 150 lb 4 oz Microbiology Reports for the Last 24 Hours: Microbiology 06/07/20 Unknown Sputum - Endotracheal Tube Aspirate Gram Stain - Final 06/07/20 Unknown Sputum - Endotracheal Tube Aspirate Sputum Culture - Preliminary - Constitutional no acute distress - *Routine Respiratory Exam Absent: respiratory distress Comments: Airleak with respirations The entire chest tube dressing was removed and a new dressing was applied. The system was evaluated for leaks
--- NOTE | 2020-06-11 09:27 | HMH.ACPN2 ---
Internal Medicine - PN: Subj *Date: 06/11/20 *Time: 09:27 Interval history: fell on floor today with 2 cm rt forehead lac - no other apparent injury - chest tube ok Exam Vital signs and Labs for Last 24 Hours: Temp Pulse Resp BP Pulse Ox 98.3 F 88 9 L 148/95 H 100 06/11/20 07:54 06/11/20 07:54 06/11/20 07:54 06/11/20 07:54 06/11/20 07:54 Laboratory Results - last 24 hr 06/10/20 11:45: WBC 7.2, RBC 4.25 L, Hgb 9.7 L, Hct 33.1 L, MCV 77.8 L, MCH 22.8 L, MCHC 29.2 L, RDW 19.9 H, Plt Count 93 L, MPV 10.9 H, Neut % (Auto) 76.5, Lymph % (Auto) 16.0, [place] % (Auto) 6.0, Eos % (Auto) 1.4, Baso % (Auto) 0.2, Neut # (Auto) 5.5, Lymph # (Auto) 1.2, [place] # (Auto) 0.4, Eos # (Auto) 0.1, Baso # (Auto) 0.0 06/10/20 11:45: Sodium 136, Potassium 3.1 L D, Chloride 102, Carbon Dioxide 29 D, Anion Gap 8.1, BUN 23 H, Creatinine 1.00 D, Estimated Creat Clear 74, Estimated GFR 76, Est GFR ( Amer) 92 D, Glucose 100, Calcium 8.8 06/11/20 06:15: WBC 6.4, RBC 3.98 L, Hgb 9.1 L, Hct 30.4 L, MCV 76.4 L, MCH 22.8 L, MCHC 29.8 L, RDW 20.0 H, Plt Count 77 L, MPV 9.5, Neut % (Auto) 70.9, Lymph % (Auto) 17.8, [place] % (Auto) 8.4, Eos % (Auto) 2.5, Baso % (Auto) 0.4, Neut # (Auto) 4.5, Lymph # (Auto) 1.1, [place] # (Auto) 0.5, Eos # (Auto) 0.2, Baso # (Auto) 0.0 06/11/20 06:15: Sodium 135 L, Potassium 3.2 L, Chloride 104, Carbon Dioxide 27, Anion Gap 7.2, BUN 18, Creatinine 0.90, Estimated Creat Clear 84, Estimated GFR 86, Est GFR ( Amer) 104, Glucose 89, Calcium 8.6 I & O for Last 24 hours: Intake & Output 06/08/20 06/09/20 06/10/20 06/11/20 11:59 11:59 11:59 11:59 Intake Total 681 / 681 1869 / 1869 1989 180 / 180 Output Total 3215 / 4280 3660 / 3660 840 / 840 1215 / 1215 Balance -2534 / -3599 -1791 / -1791 1150 / 1150 -1035 / -1035 Weight 152 lb 2 oz 152 lb 1.903 oz 146 lb 5 oz 150 lb 4 oz Microbiology Reports for the Last 24 Hours: Microbiology 06/07/20 Unknown Sputum - Endotracheal Tube Aspirate Gram Stain - Final 06/07/20 Unknown Sputum - Endotracheal Tube Aspirate Sputum Culture - Preliminary - Constitutional no acute distress, thin - *Routine HEENT Exam Head: Present: laceration (2 cm forehead lac ) Eye: Present: EOMI, PERRL. Absent: nystagmus ENT: Present: mucous membranes dry - *Routine Neck Exam Absent: JVD - *Routine Respiratory Exam Present: decreased breath sounds, other (lt chest tube ) - *Routine Cardiovascular Exam Present: RRR - *Routine Abdominal Exam Present: soft - *Routine Extremities Exam Present: full ROM - Routine Back/Spine/Pelvis Exam Back/Spine: Absent: CVA tenderness - *Routine Skin Exam Comments: 2 cm rt forehead lac - *Routine Neurological Exam Present: alert, oriented X3, CN II-XII intact no focal changes - Routine Psychiatric Exam Present: agitated Assessment and Plan (1) Pneumothorax, left Status: Acute Category: Medical Code(s): J93.9 - Pneumothorax, unspecified (2) Pacemaker Status: Acute Category: Medical Code(s): Z95.0 - Presence of cardiac pacemaker (3) History of myocardial infarction Status: Chronic Category: Medical Code(s): I25.2 - Old myocardial infarction (4) Tobacco use disorder Status: Chronic Category: Medical Code(s): F17.200 - Nicotine dependence, unspecified, uncomplicated (5) Anemia Status: Acute Qualifiers: Anemia type: unspecified type Qualified Code(s): D64.9 - Anemia, unspecified Category: Medical Code(s): D64.9 - Anemia, unspecified (6) Thrombocytopenia Status: Acute Category: Medical Code(s): D69.6 - Thrombocytopenia, unspecified (7) Renal insufficiency Status: Acute Category: Medical Code(s): N28.9 - Disorder of kidney and ureter, unspecified (8) Hyponatremia Status: Acute Category: Medical Code(s): E87.1 - Hypo-osmolality and hyponatremia (9) COVID-19 virus IgG antibody detected Status: Acute Category: Medical Code(s): R76.8 -
--- NOTE | 2020-06-11 09:30 | PC.NURSE ---
apporx. 0835 upon entering room with MD Jolly, pt was lying on floor. pt was noted to have a 2cm lac to his right side of forehead. Dr. Jolly, myself, Concha Payton RN and the srna placed pt back in bed. bed alarm noted to be on. MD Jolly requested staff to notified ER to bring his suture kit to floor. all staff remained at bedside. VS WNL. during the suturing pt family entered room. explained the situation. family noted to be calm and understanding. Dr. Jolly stated he will put orders in for pt. when staff and family asked what happened pt stated i am ready to go pt was explained reasoning for staying at [facility]. bed alarm on as well as clip alarm in place, call gallegos within reach. family pleasant with staff. pt talkative with staff and family. staff left room and family remained and conversing with pt.
--- NOTE | 2020-06-11 09:31 | CT_ITS ---
PROCEDURE: CT HEAD/BRAIN WO CON CLINICAL INDICATION: fell Head injury with headache/pain, contusion, abrasion or hematoma COMPARISON: No exams were available for comparison TECHNIQUE: Axial images obtained. All CT scans at the facility use one or more dose reduction, viz: automated exposure control, ma/kV adjustment per patient size (including targeted exams where dose is matched to indication, i.e. head), or iterative reconstruction technique. FINDINGS: No midline shift, mass effect, intracranial hemorrhage, hydrocephalus, or extra-axial fluid collection is evident. There is generalized atrophy with hypoattenuation of the periventricular white matter consistent with microangiopathic changes. The calvarium has an unremarkable appearance. No mastoid effusion. Soft tissue swelling is present in the right region the scalp with some subcutaneous gas in this area consistent laceration with scalp hematoma IMPRESSION: 1. No acute intracranial findings. 2. Right frontal scalp laceration with hematoma Dictated by: Dean Esparza MD 06/11/2020 11:51 Dean Esparza MD in [facility] 06/11/2020 11:51
--- NOTE | 2020-06-11 09:32 | CT_ITS ---
PROCEDURE: CT CERVICAL SPINE WO CON CLINICAL INDICATION: fall Neck injury with pain, contusion/abrasion or hematoma, cervical sprain/strain the COMPARISON: CT CT CHEST WO CON from 06/11/2020 TECHNIQUE: Axial images obtained with sagittal and coronal reformats. All CT scans at the facility use one or more dose reduction, viz: automated exposure control, ma/kV adjustment per patient size (including targeted exams where dose is matched to indication, i.e. head), or iterative reconstruction technique. Axial spiral CT scanning performed of the cervical spine beginning at the base of the skull and continuing to the upper T-spine. 3-D multiplanar reconstruction with 3-D manipulation of volumetric data set in image rendering was completed by the radiologist and/or technologist with the supervision of the radiologist on independent workstation. FINDINGS: There is normal alignment. No obvious fracture or dislocation. There has been prior anterior cervical disc fusion at C3-C4 C4-C5 and C5-C6 with 3 separate bone plates. Cervical spondylosis is present with small central disc protrusion at C2-C3, bilateral foraminal narrowing at C3-C4, borderline canal stenosis with mild left foraminal narrowing at C4-C5, degenerative disc disease with canal stenosis and right-sided foraminal narrowing at C5-C6, left-sided foraminal narrowing at C6-C7. Left-sided apical pneumothorax is present and appears slightly larger compared to the CT of the chest performed at the same day. Chest tube is in place. The chest CT is performed after the C-spine CT. Right-sided layering pleural effusion is noted IMPRESSION: Postsurgical changes in cervical spondylosis as described above with canal stenosis and foraminal narrowing. No acute fracture. Left-sided apical pneumothorax. Right pleural effusion Dictated by: Dean Esparza MD 06/11/2020 12:00 Dean Esparza MD in [facility] 06/11/2020 12:00
--- NOTE | 2020-06-11 09:33 | XR_ITS ---
PROCEDURE: XR PELVIS MIN 3V CLINICAL INDICATION: fall Pain COMPARISON: No exams were available for comparison TECHNIQUE: XR Pelvis AP View FINDINGS: No fracture or dislocation is evident. Mild osteoarthritic changes of the hips. There postsurgical changes of the lumbar spine with inter pedicular screws at L4-5 and S1. Aortoiliac stent graft is present. No lytic or blastic change. IMPRESSION: No acute findings. Dictated by: Dean Esparza MD 06/11/2020 12:02 Dean Esparza MD in [facility] 06/11/2020 12:02
--- NOTE | 2020-06-11 09:33 | CT_ITS ---
PROCEDURE: CT CHEST WO CON CLINICAL INDICATION: fall/chest tube COMPARISON: CT CT ANGIO ABDOMEN from 11/10/2019 TECHNIQUE: Axial images obtained with sagittal and coronal reformats. All CT scans at the facility use one or more dose reduction, viz: automated exposure control, ma/kV adjustment per patient size (including targeted exams where dose is matched to indication, i.e. head), or iterative reconstruction technique. FINDINGS: Left-sided chest tube is in place with the tip at the apex. There is a small left-sided pneumothorax at the lung apex. This is slightly more prominent along the lower hemithorax anteriorly and at the lung base and some areas measuring up to 2.7 cm in thickness anteriorly at the left lung base. There is a moderate-sized right pleural effusion with the greatest component being subpulmonic. There is consolidation/volume loss of the right lower lobe with some sparing of the superior segment of the right lower lobe. COPD/centrilobular emphysema is present with thickened interlobular septa which may be due to pulmonary fibrotic changes with scattered areas of atelectatic change or scarring. There is trace left-sided effusion with left basilar volume loss. No acute fracture is evident. No obvious mediastinal mass. Artifact is present from cardiac pacemaker device. There has been a prior CABG. Aortic stent graft is present in the infrarenal region of the aorta incompletely imaged. Nondisplaced fractures are present involving the right 2nd, 3rd, 4th, and 5th ribs anteriorly. The 3rd and 4th rib fractures are slightly offset. IMPRESSION: 1. Left-sided chest tube in place with small left-sided pneumothorax. The largest component is in the left lung base. 2. Right 2nd through 5th rib fractures anteriorly 3. Moderate-sized right pleural effusion mostly sub pulmonic with right lower lobe consolidation/volume loss. 4. COPD/centrilobular emphysema with pulmonary fibrosis versus septal edema 5. No obvious fracture Dictated by: Dean Esparza MD 06/11/2020 11:49 Dean Esparza MD in [facility] 06/11/2020 11:49
--- NOTE | 2020-06-11 09:36 | HMH.PROC ---
[facility] Procedure Note Procedure Note:: 2 cm rt forehead lac - closed with 4o nylon x 6 simple interrupted after skin prep and 1% plain lido 5 ml - no complications
--- NOTE | 2020-06-11 10:20 | PC.NURSE ---
aprox. 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 pt to be connected to managed security sales consultant. pt tolerated well and helped with transitioning/care.
--- NOTE | 2020-06-11 11:52 | PC.NURSE ---
Addendum entered by Abby Ley RN 06/11/20 11:56: pt and pt alertness has been checked 10-15mis thus far in shift for safety Original Note: pt stated she did not want to change pt bed to a different bed. she is content with the current bed. bed alarm on and clip alarm now on in place as well. at bedside. pt is alert and talking with staff and .
--- NOTE | 2020-06-11 12:25 | PC.NURSE ---
PT SITTING UP IN BED EATING LUNCH WITH FAMILY AT BEDSIDE.
--- NOTE | 2020-06-11 12:50 | PC.NURSE ---
PT LAYING IN BED WATCHING GOLF, NO NEEDS VOICED AT THIS TIME.
--- NOTE | 2020-06-11 13:41 | PC.NURSE ---
PT LAYING IN BED ASLEEP. SAFETY ON AND IN PLACE. CALL [facility] WITHIN REACH. FAMILY LEFT ROOM.
--- NOTE | 2020-06-11 13:41 | PC.NURSE ---
PT HAS BEEN RESTING WITH EYES CLOSED SINCE 1299. FAMILY HAS LEFT ROOM WELL.
--- NOTE | 2020-06-11 15:04 | PC.WOUNDNOTE ---
Wound Location: Length: Width: Depth: Undermining Y/N: Tunneling cm: Granulation %: Slough/necrotic tissue %: Inflammation/swelling Y/N: Pain and/or tenderness Y/N: Exudate: Serosanguinous Sanguinous Serosanguinous Seropurulent Purulent Color: Clear [place]indy Cloudy/milky [place] Red Green Yellow Brown [place] Blue Consistency: Thick Thin Amount: None Scant Small Moderate Large Odor Y/N: 2 CM LACERATION TO RIGHT SIDE OF FOREHEAD
--- NOTE | 2020-06-11 15:05 | PC.NURSE ---
PT IS CURRENTLY AWAKE AND ALERT, SITTING UP IN BED, TALKING WITH . WHEN FAMILY IS AT BEDSIDE PT BECOMES DEMANDING OF GOING HOME. HAS BEEN BETTER AT CALMING DOWN THAN PREVIOUS DAY. PT DID EAT ONE TAXI SERVICER AND HAS DRANK WATER AND PEPSI. SAFETY PRECAUTIONS ARE IN PLACE, AND CALL [facility] WITHIN REACH.
--- NOTE | 2020-06-11 17:55 | PC.NURSE ---
PT HAS BEEN IN [facility] T/O DAY, OTHER THAN DURING THE TIME WANTING TO GO HOME (SEE PREVIOUS NOTE) PT HAS BEEN VERY ALERT THIS SHIFT. ONLY ORIENTED TO PERSON AND BIRTHDAY STILL. PT HAS BEEN ON 3LNC T/O DAY. PT HAS A 20G PIV TO LEFT FOREARM WITH NS @50M/HR INFUSING W/O ISSUE. PT DID C/O HIS HEAD BEEN TENDER TO TOUCH (POINTS AT STITCHES) AT 1647. PT WAS GIVEN HIS SCHEDULED PAIN MEDICATION WITH NOTED RELIEF. PT ATE A GOOD SUPPER AND DRANK A GLASS OF WATER AND REQUESTED 2 PEPSIS. BED SAFETY AND CLIP ALARM HAVE BEEN IN PLACE ALL T/O SHIFT, AND CONTINUES TO BE IN PLACE. CALL BED HAS BEEN WITHIN REACH AND PATIENT HAS BEEN RE EDUCATED ON USE MULTIPLE TIMES. SINCE FAMILY HAS LEFT PT HAS NOT BEEN ATTEMPTING TO GET OUT OF BED. HE HAS BEEN COOPERATIVE WITH CARE. REPORT GIVEN TO MARCIANO HUERTA
--- NOTE | 2020-06-11 18:24 | PC.NURSE ---
PLEUR EVAC CHAMBER CHANGED PER PROTOCOL, TO CONTINUOUS SUCTION, WITH Markie ABREU RN. PT TOLERATED WELL. BUBBLES NOTED IN WATER CHAMBER WHEN PT COUGHS, IT WAS THIS AM. PT IS SITTING UP IN SEATED POSITION PER MD HENAO REQUEST. PT STATES NO NEEDS AT THIS TIME. SAFETY IN PLACE. CALL [facility] WITHIN REACH.
--- NOTE | 2020-06-11 23:52 | PC.NURSE ---
patient has needed frequent redirection and education on attempting to get out of bed without help. call light in reach, bed alarm on, pull alarm on as well. antislip socks on. ativan given earlier in shift due to aggitation and irritabilty when redirected and educated. patient restless but not aggitated at this time.
[2020-06-12] VITALS (15 sets, daily range): BP systolic 143–168; BP diastolic 69–97; PULSE 68–120; RESP 12–22; TEMP 36.3–36.7; O2SAT 90–100; BMI 19.3
--- NOTE | 2020-06-12 02:07 | PC.NURSE ---
patient continues to be restless, pulling at telemetry leads and taking o2 off, patient is calm.
--- NOTE | 2020-06-12 06:00 | XR_ITS ---
PROCEDURE: XR CHEST PORTABLE CLINICAL HISTORY: PTX Follow-up pneumothorax COMPARISON: CR XR CHEST PORTABLE from 06/09/2020 CR XR CHEST PORTABLE from 06/10/[address] CHEST WO CON from 06/11/2020 CR XR CHEST PORTABLE from 06/11/2020 FINDINGS: Prior CABG. Bipolar pacemaker is present from left subclavian approach. Left-sided chest tube is noted with no obvious pneumothorax. Chronic pulmonary parenchymal changes are present with a medium-sized right pleural effusion and right lower lobe airspace disease similar to the previous exam. No acute bony abnormalities. IMPRESSION: As above, no evidence of pneumothorax. Left chest tube remains in place. Medium-sized right pleural effusion with right basilar airspace disease unchanged superimposed upon chronic changes Dictated by: Dean Esparza MD 06/12/2020 06:11 Dean Esparza MD in [facility] 06/12/2020 06:11
[2020-06-12 06:19] LABS: Anion Gap 7.9 mEq/L (5-15); Blood Urea Nitrogen 15 mg/dl (9-20); Calcium 8.6 mg/dl (8.4-10.2); Carbon Dioxide 29 mmol/L (22.0-30.0); Chloride 104 mmol/L (98-107); Creatinine Clearance Estimated 82 mL/min (50-200); Estimated Glomerular Filt Rate 86 ml/min (>60); GFR (African American) 104 ML/MIN (>60); Glucose 113 mg/dl (74-100); Sodium 138 mmol/L (136-145)
[2020-06-12 06:30] LABS: Basophils % 0.4 % (0.1-2.0); Eosinophils # 0.2 K/mm3 (0.0-0.4); Eosinophils % 3.6 % (0.1-12.0); Hematocrit 32.9 % (42.0-52.0); Hemoglobin 9.7 g/dL (14.1-18.0); Lymphocytes # 1.4 K/mm3 (0.7-4.5); Lymphocytes % 24.2 % (10-50); Mean Corpuscular HGB Conc 29.6 g/dL (31.8-35.4); Mean Corpuscular Hemoglobin 23.1 pg (27.0-31.2); Mean Corpuscular Volume 78.1 fl (80-94); Mean Platelet Volume 9.5 fl (7.4-10.4); Monocytes # 0.5 K/mm3 (0.1-1.0); Monocytes % 8.5 % (1.7-9.3); Neutrophils # 3.6 K/mm3 (1.8-7.8); Neutrophils % 63.3 % (37.0-80.0); Platelet Count 68 K/mm3 (142-424); Red Blood Count 4.22 M/mm3 (4.60-6.20); Red Cell Distribution Width 20.3 % (11.5-17.5); White Blood Count 5.7 K/mm3 (4.8-10.8)
[2020-06-12 06:42] LABS: Potassium 2.9 mmoL/L (3.5-5.1)
--- NOTE | 2020-06-12 07:27 | HMH.PNCARD ---
Subjective Date: 06/12/20 Time: 07:27 Principal diagnosis: tension pneumothorax Interval history: 59-year-old white male in bed in no acute distress. Initially sleeping but arouses easily and answers questions appropriately but continues to be disoriented and unsure of where he is located. He has not oriented to year or month. Patient did suffer head laceration yesterday after getting up out of bed without assistance and falling. Telemetry shows what appears to be sinus tachycardia with frequent PACs and PVCs. EKG is pending Exam Vital signs and Labs for Last 24 Hours: Temp Pulse Resp BP Pulse Ox 98.0 F 87 15 160/97 H 95 06/12/20 04:00 06/12/20 06:25 06/12/20 06:00 06/12/20 06:00 06/12/20 06:25 Laboratory Results - last 24 hr 06/12/20 05:29: WBC 5.7, RBC 4.22 L, Hgb 9.7 L, Hct 32.9 L, MCV 78.1 L, MCH 23.1 L, MCHC 29.6 L, RDW 20.3 H, Plt Count 68 L, MPV 9.5, Neut % (Auto) 63.3, Lymph % (Auto) 24.2, [place] % (Auto) 8.5, Eos % (Auto) 3.6, Baso % (Auto) 0.4, Neut # (Auto) 3.6, Lymph # (Auto) 1.4, [place] # (Auto) 0.5, Eos # (Auto) 0.2, Baso # (Auto) 0.0 06/12/20 05:29: Sodium 138, Potassium 2.9 L*, Chloride 104, Carbon Dioxide 29, Anion Gap 7.9, BUN 15, Creatinine 0.90, Estimated Creat Clear 82, Estimated GFR 86, Est GFR ( Amer) 104, Glucose 113 H D, Calcium 8.6 I & O for Last 24 hours: Intake & Output 06/09/20 06/10/20 06/11/20 06/12/20 11:59 11:59 11:59 11:59 Intake Total 1869 / 1869 1989 / 1989 180 / 180 180 / 180 Output Total 3660 / 3660 840 / 840 1415 / 1415 980 / 980 Balance -1791 / -1791 1150 / 1150 -1235 / -1235 -800 / -800 Weight 152 lb 1.903 oz 146 lb 5 oz 150 lb 4 oz 146 lb 6 oz Microbiology Reports for the Last 24 Hours: Microbiology 06/07/20 Unknown Sputum - Endotracheal Tube Aspirate Gram Stain - Final 06/07/20 Unknown Sputum - Endotracheal Tube Aspirate Sputum Culture - Final Normal Respiratory [place] - *Routine Respiratory Exam Present: CTA bilaterally - *Routine Cardiovascular Exam Present: RRR - *Routine Neurological Exam Present: alert Progress Note: A&P (1) Pneumothorax, left Status: Acute (2) Pacemaker Status: Acute (3) History of myocardial infarction Status: Chronic (4) Tobacco use disorder Status: Chronic (5) Anemia Status: Acute (6) Thrombocytopenia Status: Acute (7) Renal insufficiency Status: Acute (8) Hyponatremia Status: Acute (9) COVID-19 virus IgG antibody detected Status: Acute (10) History of coronary artery bypass graft Problem details: 01/11/2020 [facility] Status: Chronic (11) CAD (coronary artery disease), [place] coronary artery Status: Chronic (12) Facial laceration Status: Acute Assessment and Plan for All Diagnoses:: 1. CAD, history of [place], history of coronary artery bypass grafting in 2008 and repeat in 2019, clinically stable. We will begin to reinstitute goal-directed medical therapy for ischemic cardiomyopathy. 2. Status post AICD implantation for ischemic cardiomyopathy with ejection fraction of 30%. 3. Status post tension pneumothorax post AICD implantation with code and CPR instituted and transient intubation and mechanical ventilation. Currently with chest tube in place, monitored and managed per Dr. Zhong 4. Chronic narcotic use 5. Status post fall with head laceration, status post suturing 6. AAA measuring 5.4 x 5 cm, awaiting surgery per Dr. Jain in [place], [place]
--- NOTE | 2020-06-12 07:54 | ECG_ITS ---
APPROVED REPORT Exam: Resting ECG HR:89 bpm ECG Measurements Heart Rate 89 AXES IL 142 P 70 QRSd 100 QRS 64 QT 410 T 23 QTc 498 Conclusion Sinus rhythm with occasional premature ventricular complexes and premature atrial complexes Late r wave progression, unchanged Inferior infarct, old Abnormal ECG Electronically signed by : Teddy Hutchinson, 06/12/2020 08:41:37
[2020-06-12 08:00] LABS: Magnesium 1.9 mg/dl (1.6-2.3)
--- NOTE | 2020-06-12 08:18 | P.PN_ITS ---
Subjective Narrative: Per nursing, no significant changes overnight. Progress Note: A&P (1) Pneumothorax, left Status: Acute Assessment and plan: Persistent (mostly inferior/anterior) pneumothorax noted on yesterday's CT scan. With regard to airleak, he has shown fairly dramatic improvement over the last 24 hours. He continues to have a moderate effusive component with around 300 mL of output over the last shift. Continue chest tube to 20 of suction for now (2) Pacemaker Status: Acute (3) History of myocardial infarction Status: Chronic (4) Tobacco use disorder Status: Chronic (5) Anemia Status: Acute (6) Thrombocytopenia Status: Acute (7) Renal insufficiency Status: Acute (8) Hyponatremia Status: Acute (9) COVID-19 virus IgG antibody detected Status: Acute (10) History of coronary artery bypass graft Problem details: 01/11/2020 [facility] Status: Chronic (11) CAD (coronary artery disease), [place] coronary artery Status: Chronic (12) Facial laceration Status: Acute Exam Vital signs and Labs for Last 24 Hours: Temp Pulse Resp BP Pulse Ox 98.0 F 87 15 160/97 H 95 06/12/20 04:00 06/12/20 06:25 06/12/20 06:00 06/12/20 06:00 06/12/20 06:25 Laboratory Results - last 24 hr 06/12/20 04:24: Magnesium 1.9 06/12/20 05:29: WBC 5.7, RBC 4.22 L, Hgb 9.7 L, Hct 32.9 L, MCV 78.1 L, MCH 23.1 L, MCHC 29.6 L, RDW 20.3 H, Plt Count 68 L, MPV 9.5, Neut % (Auto) 63.3, Lymph % (Auto) 24.2, [place] % (Auto) 8.5, Eos % (Auto) 3.6, Baso % (Auto) 0.4, Neut # (Auto) 3.6, Lymph # (Auto) 1.4, [place] # (Auto) 0.5, Eos # (Auto) 0.2, Baso # (Auto) 0.0 06/12/20 05:29: Sodium 138, Potassium 2.9 L*, Chloride 104, Carbon Dioxide 29, Anion Gap 7.9, BUN 15, Creatinine 0.90, Estimated Creat Clear 82, Estimated GFR 86, Est GFR ( Amer) 104, Glucose 113 H D, Calcium 8.6 I & O for Last 24 hours: Intake & Output 06/09/20 06/10/20 06/11/20 06/12/20 11:59 11:59 11:59 11:59 Intake Total 1869 / 1869 1989 180 / 180 180 / 180 Output Total 3660 / 3660 840 / 840 1415 / 1415 980 / 980 Balance -1791 / -1791 1150 / 1150 -1235 / -1235 -800 / -800 Weight 152 lb 1.903 oz 146 lb 5 oz 150 lb 4 oz 146 lb 6 oz Microbiology Reports for the Last 24 Hours: Microbiology 06/07/20 Unknown Sputum - Endotracheal Tube Aspirate Gram Stain - Final 06/07/20 Unknown Sputum - Endotracheal Tube Aspirate Sputum Culture - Final Normal Respiratory [place] [facility] Reports for the Last 24 Hours: Chest CT 06/11/20- IMPRESSION: 1. Left-sided chest tube in place with small left-sided pneumothorax. The largest component is in the left lung base. 2. Right 2nd through 5th rib fractures anteriorly 3. Moderate-sized right pleural effusion mostly sub pulmonic with right lower lobe consolidation/volume loss. 4. COPD/centrilobular emphysema with pulmonary fibrosis versus septal edema 5. No obvious fracture - Constitutional no acute distress - *Routine Respiratory Exam Absent: respiratory distress Comments: Moderate swing within 2. A few small bubbles noted with transitioning between 20, 30, and 40 of suction. Significantly-increased column noted on 20 cm.
--- NOTE | 2020-06-12 08:46 | HMH.ACPN2 ---
Internal Medicine - PN: Subj *Date: 06/12/20 *Time: 08:45 Interval history: pt sitting up in bed, states he is doing fine. Exam Vital signs and Labs for Last 24 Hours: Temp Pulse Resp BP Pulse Ox 98.0 F 87 15 160/97 H 95 06/12/20 04:00 06/12/20 06:25 06/12/20 06:00 06/12/20 06:00 06/12/20 06:25 Laboratory Results - last 24 hr 06/12/20 04:24: Magnesium 1.9 06/12/20 05:29: WBC 5.7, RBC 4.22 L, Hgb 9.7 L, Hct 32.9 L, MCV 78.1 L, MCH 23.1 L, MCHC 29.6 L, RDW 20.3 H, Plt Count 68 L, MPV 9.5, Neut % (Auto) 63.3, Lymph % (Auto) 24.2, [place] % (Auto) 8.5, Eos % (Auto) 3.6, Baso % (Auto) 0.4, Neut # (Auto) 3.6, Lymph # (Auto) 1.4, [place] # (Auto) 0.5, Eos # (Auto) 0.2, Baso # (Auto) 0.0 06/12/20 05:29: Sodium 138, Potassium 2.9 L*, Chloride 104, Carbon Dioxide 29, Anion Gap 7.9, BUN 15, Creatinine 0.90, Estimated Creat Clear 82, Estimated GFR 86, Est GFR ( Amer) 104, Glucose 113 H D, Calcium 8.6 I & O for Last 24 hours: Intake & Output 06/09/20 06/10/20 06/11/20 06/12/20 11:59 11:59 11:59 11:59 Intake Total 1869 / 1869 1989 / 1989 180 / 180 300 / 300 Output Total 3660 / 3660 840 / 840 1415 / 1415 980 / 980 Balance -1791 / -1791 1150 / 1150 -1235 / -1235 -680 / -680 Weight 152 lb 1.903 oz 146 lb 5 oz 150 lb 4 oz 146 lb 6 oz Microbiology Reports for the Last 24 Hours: Microbiology 06/07/20 Unknown Sputum - Endotracheal Tube Aspirate Gram Stain - Final 06/07/20 Unknown Sputum - Endotracheal Tube Aspirate Sputum Culture - Final Normal Respiratory [place] - Constitutional no acute distress, thin - *Routine HEENT Exam Head: Present: normocephalic Eye: Present: PERRL ENT: Present: mucous membranes moist - *Routine Neck Exam Present: supple. Absent: lymphadenopathy - *Routine Respiratory Exam Present: wheezes - *Routine Cardiovascular Exam Present: RRR Comments: chest tube draining left side, dressing c/d/i dressing to left upper chest c/d/i - *Routine Abdominal Exam Present: soft, normoactive bowel sounds. Absent: tenderness - *Routine Extremities Exam Absent: cyanosis, clubbing, edema - *Routine Skin Exam Present: warm. Absent: rash Comments: sutures to rt forehead c/d/i - *Routine Neurological Exam Present: alert - Routine Psychiatric Exam Present: normal affect Assessment and Plan (1) Pneumothorax, left Status: Acute Category: Medical Code(s): J93.9 - Pneumothorax, unspecified (2) Pacemaker Status: Acute Category: Medical Code(s): Z95.0 - Presence of cardiac pacemaker (3) History of myocardial infarction Status: Chronic Category: Medical Code(s): I25.2 - Old myocardial infarction (4) Tobacco use disorder Status: Chronic Category: Medical Code(s): F17.200 - Nicotine dependence, unspecified, uncomplicated (5) Anemia Status: Acute Qualifiers: Anemia type: unspecified type Qualified Code(s): D64.9 - Anemia, unspecified Category: Medical Code(s): D64.9 - Anemia, unspecified (6) Thrombocytopenia Status: Acute Category: Medical Code(s): D69.6 - Thrombocytopenia, unspecified (7) Renal insufficiency Status: Acute Category: Medical Code(s): N28.9 - Disorder of kidney and ureter, unspecified (8) Hyponatremia Status: Acute Category: Medical Code(s): E87.1 - Hypo-osmolality and hyponatremia (9) COVID-19 virus IgG antibody detected Status: Acute Category: Medical Code(s): R76.8 - Other specified abnormal immunological findings in serum (10) History of coronary artery bypass graft Problem details: 01/11/2020 [facility] Status: Chronic Category: Surgical Code(s): Z95.1 - Presence of aortocoronary bypass graft (11) CAD (coronary artery disease), [place] coronary artery Status: Chronic Qualifiers: [place] vs. transplanted heart: [place] heart Associated angina: with other forms of angina Qualified Code(s): I25.118 - Atherosclerotic [place]a
--- NOTE | 2020-06-12 09:07 | HMH.ACPN ---
Internal Medicine - PN: Subj *Date: 06/12/20 *Time: 09:07 Exam Vital signs and Labs for Last 24 Hours: Temp Pulse Resp BP Pulse Ox 98.1 F 104 H 22 168/69 H 91 L 06/12/20 08:00 06/12/20 08:00 06/12/20 08:00 06/12/20 08:00 06/12/20 08:00 Laboratory Results - last 24 hr 06/12/20 04:24: Magnesium 1.9 06/12/20 05:29: WBC 5.7, RBC 4.22 L, Hgb 9.7 L, Hct 32.9 L, MCV 78.1 L, MCH 23.1 L, MCHC 29.6 L, RDW 20.3 H, Plt Count 68 L, MPV 9.5, Neut % (Auto) 63.3, Lymph % (Auto) 24.2, [place] % (Auto) 8.5, Eos % (Auto) 3.6, Baso % (Auto) 0.4, Neut # (Auto) 3.6, Lymph # (Auto) 1.4, [place] # (Auto) 0.5, Eos # (Auto) 0.2, Baso # (Auto) 0.0 06/12/20 05:29: Sodium 138, Potassium 2.9 L*, Chloride 104, Carbon Dioxide 29, Anion Gap 7.9, BUN 15, Creatinine 0.90, Estimated Creat Clear 82, Estimated GFR 86, Est GFR ( Amer) 104, Glucose 113 H D, Calcium 8.6 I & O for Last 24 hours: Intake & Output 06/09/20 06/10/20 06/11/20 06/12/20 23:59 23:59 23:59 23:59 Intake Total 1790 / 1790 780 / 780 180 / 180 120 / 120 Output Total 725 / 925 1280 / 1280 1065 / 1365 630 / 630 Balance 1065 / 865 -500 / -500 -885 / -1185 -510 / -510 Weight 69 kg 66.366 kg 68.152 kg 66.395 kg Microbiology Reports for the Last 24 Hours: Microbiology 06/07/20 Unknown Sputum - Endotracheal Tube Aspirate Gram Stain - Final 06/07/20 Unknown Sputum - Endotracheal Tube Aspirate Sputum Culture - Final Normal Respiratory [place] Assessment and Plan (1) Pneumothorax, left Status: Acute Category: Medical Code(s): J93.9 - Pneumothorax, unspecified (2) Pacemaker Status: Acute Category: Medical Code(s): Z95.0 - Presence of cardiac pacemaker (3) History of myocardial infarction Status: Chronic Category: Medical Code(s): I25.2 - Old myocardial infarction (4) Tobacco use disorder Status: Chronic Category: Medical Code(s): F17.200 - Nicotine dependence, unspecified, uncomplicated (5) Anemia Status: Acute Qualifiers: Anemia type: unspecified type Qualified Code(s): D64.9 - Anemia, unspecified Category: Medical Code(s): D64.9 - Anemia, unspecified (6) Thrombocytopenia Status: Acute Category: Medical Code(s): D69.6 - Thrombocytopenia, unspecified (7) Renal insufficiency Status: Acute Category: Medical Code(s): N28.9 - Disorder of kidney and ureter, unspecified (8) Hyponatremia Status: Acute Category: Medical Code(s): E87.1 - Hypo-osmolality and hyponatremia (9) COVID-19 virus IgG antibody detected Status: Acute Category: Medical Code(s): R76.8 - Other specified abnormal immunological findings in serum (10) History of coronary artery bypass graft Problem details: 01/11/2020 [facility] Status: Chronic Category: Surgical Code(s): Z95.1 - Presence of aortocoronary bypass graft (11) CAD (coronary artery disease), [place] coronary artery Status: Chronic Qualifiers: [place] vs. transplanted heart: [place] heart Associated angina: with other forms of angina Qualified Code(s): I25.118 - Atherosclerotic heart disease of [place] coronary artery with other forms of angina pectoris Category: Medical Code(s): I25.10 - Atherosclerotic heart disease of [place] coronary artery without angina pectoris (12) Facial laceration Status: Acute Category: Medical Code(s): S01.81XA - Laceration without foreign body of other part of head, initial encounter The patient's infection will respond to the chosen ABx?: Yes Is the patient receiving the right drug, dose, and route?: Yes Could a more targeted ABx be ordered?: No
--- NOTE | 2020-06-12 09:37 | PC.NURSE ---
spoke with dr. bueno and perla fierro. patient is okay to come out of stepdown
--- NOTE | 2020-06-12 12:33 | HMH.PULMPN ---
Internal Medicine - PN: Subj *Date: 06/12/20 *Time: 12:33 Interval history: No acute respiratory events overnight. Exam - Constitutional Constitutional:: Present: no acute distress, comfortable - HENMT Exam HENMT: Present: atraumatic - Eye Exam Eyes:: Present: eyelids normal - Neck Exam Neck:: Present: thyroid normal - Respiratory Exam Respiratory:: Present: able to speak in complete sentences, lungs clear, normal breath sounds, no respiratory distress - Cardiovascular Exam Cardiac:: Present: S1, S2 - GI Exam GI:: Present: soft - Skin Exam Skin: Present: warm, no rash - Neurological Exam Neurological: Present: alert, awake - Extremities Exam Extremities: Present: no cyanosis, no clubbing, no edema Assessment and Plan (1) Pneumothorax, left Status: Acute Category: Medical Code(s): J93.9 - Pneumothorax, unspecified (2) Pacemaker Status: Acute Category: Medical Code(s): Z95.0 - Presence of cardiac pacemaker (3) History of myocardial infarction Status: Chronic Category: Medical Code(s): I25.2 - Old myocardial infarction (4) Tobacco use disorder Status: Chronic Category: Medical Code(s): F17.200 - Nicotine dependence, unspecified, uncomplicated (5) Anemia Status: Acute Qualifiers: Anemia type: unspecified type Qualified Code(s): D64.9 - Anemia, unspecified Category: Medical Code(s): D64.9 - Anemia, unspecified (6) Thrombocytopenia Status: Acute Category: Medical Code(s): D69.6 - Thrombocytopenia, unspecified (7) Renal insufficiency Status: Acute Category: Medical Code(s): N28.9 - Disorder of kidney and ureter, unspecified (8) Hyponatremia Status: Acute Category: Medical Code(s): E87.1 - Hypo-osmolality and hyponatremia (9) COVID-19 virus IgG antibody detected Status: Acute Category: Medical Code(s): R76.8 - Other specified abnormal immunological findings in serum (10) History of coronary artery bypass graft Problem details: 01/11/2020 [facility] Status: Chronic Category: Surgical Code(s): Z95.1 - Presence of aortocoronary bypass graft (11) CAD (coronary artery disease), [place] coronary artery Status: Chronic Qualifiers: [place] vs. transplanted heart: [place] heart Associated angina: with other forms of angina Qualified Code(s): I25.118 - Atherosclerotic heart disease of [place] coronary artery with other forms of angina pectoris Category: Medical Code(s): I25.10 - Atherosclerotic heart disease of [place] coronary artery without angina pectoris (12) Facial laceration Status: Acute Category: Medical Code(s): S01.81XA - Laceration without foreign body of other part of head, initial encounter - Assessment and plan all Dx Assessment and Plan for all problems:: #COPD exacerbation: #Community-acquired pneumonia: 59-year-old carries a diagnosis of COPD CAD presented for an outpatient procedure complicated by pneumothorax that is post chest tube placement. Patient also had coded with CPR , chest replacement resulted in return of spontaneous circulation. Initial blood gas showed mixed metabolic and respiratory acidosis that improved however both gases were drawn before increasing her's tidal volume. Patient respiratory improved however patient was successfully extubated within 18 hours after intubation. Patient respiratory status continued to improve, this morning on room air saturating 95%. No respiratory distress. Lungs clear to auscultate. Chest tube in place, followed by surgery. Repeat CT chest over the weekend showed residual pneumothorax predominantly at the left lung base. Chest tube in position ending at the left apex, no air leak noted with coughing on todays examination, however he noted to have air leak with increased suction when evaluated by Dr. Zhong - Appears that patient continued to have intermitted air leak which improved from prior. Patient also noted to have right-sided effusion wit
--- NOTE | 2020-06-12 14:10 | DIET.NUTRFU ---
Pt with minimal intakes and poor acceptance nutritional supplements. He has been confused, PO intakes past 48h mostly 0%- recorded that he had a few bites throughout the weekend. He denies this and states he has been eating good. He has been provided diet education on importance nutrition and voiced understanding. Varied BID supplements on diet order. Continued encouragement/cueing and snacks/supplements/replacement meal offerings from nursing appreciated.
--- NOTE | 2020-06-12 16:49 | PC.NURSE ---
Pt is alert to person only and requires frequent re-orientation. Pt is receiving O2 via NC @ 3 LPM with sats. >90%. Lung sounds reveal crackles. No edema noted. LT chest pacemaker dressing C/D/I. LT chest chest tube dressing C/D/I. RT forehead laceration C/D/I. Chest tube suction set to 20. Telemetry reveals NSR/ST. Pt uses the urinal to void clear, yellow urine without issue and has occasional episodes of incontinence. No BM this shift. Pt ambulates with stand-by assistance. Pt has been mostly cooperative this shift with only one episode of agitation thus far. Pt received Ativan per MAR with favorable results. 20 G peripheral IV in the LT upper arm is patent and infusing NS @ 50 ML/HR. VSS. Call light within reach. Will continue to monitor.
--- NOTE | 2020-06-12 19:54 | PC.NURSE ---
Patient's , Anamaria Mohr, notified patient moved from room 218 to room 215; she verbalized understanding.
[2020-06-13] VITALS (8 sets, daily range): BP systolic 130–164; BP diastolic 72–90; PULSE 56–103; RESP 18–20; TEMP 36.3–36.6; O2SAT 91–95; BMI 19.1
--- NOTE | 2020-06-13 06:00 | XR_ITS ---
PROCEDURE: XR CHEST PORTABLE CLINICAL HISTORY: PTX Follow-up pneumothorax COMPARISON: CR XR CHEST PORTABLE from 06/10/[address] CHEST WO CON from 06/11/2020 CR XR CHEST PORTABLE from 06/11/2020 CR XR CHEST PORTABLE from 06/12/2020 FINDINGS: There is increased amount of subcutaneous gas along the left hemithorax laterally and into the left neck. There may be a tiny left apical pneumothorax. Left chest tube remains in place. Bipolar pacemaker is present. Chronic pulmonary parenchymal changes noted with medium-sized right pleural effusion and elevated right hemidiaphragm not significantly changed with right basilar airspace disease. IMPRESSION: Increasing left-sided subcutaneous emphysema with possible tiny left apical pneumothorax with left chest tube in place Medium-sized right pleural effusion with right basilar airspace disease Dictated by: Dean Esparza MD 06/13/2020 07:18 Dean Esparza MD in [facility] 06/13/2020 07:18
--- NOTE | 2020-06-13 06:31 | PC.NURSE ---
Patient chest tube dressing saturated and crepitus noted around chest tube insertion site; Dr. Eduardo underground production foreperson was notified and gave v.o. to change dressing. New dressing applied at 2300 and secured; 150mL drained from chest tube at 2054. At 0300 bed alarm sounded and this process description writer went to room to assess patient and found the atrium that had been previously secured to the floor, turned over face down at this time; unable to give accurate output. Replaced atrium, all connections secure, suction at 20 on the atrium and verified with Olivia Mireles RN. Patient showed no s/s of acute distress at any time this shift. Patient has been very active. Patients VS WNL, call light within reach and bed at lowest level for safety. Will continue to monitor.
--- NOTE | 2020-06-13 06:49 | HMH.GSPN ---
Subjective Narrative: Called last night due to some drainage around the chest tube site and findings of crepitance. There is noted to be intermittent air leak. Progress Note: A&P (1) Pneumothorax, left Status: Acute (2) Pacemaker Status: Acute (3) History of myocardial infarction Status: Chronic (4) Tobacco use disorder Status: Chronic (5) Anemia Status: Acute (6) Thrombocytopenia Status: Acute (7) Renal insufficiency Status: Acute (8) Hyponatremia Status: Acute (9) COVID-19 virus IgG antibody detected Status: Acute (10) History of coronary artery bypass graft Problem details: 01/11/2020 [facility] Status: Chronic (11) CAD (coronary artery disease), [place] coronary artery Status: Chronic (12) Facial laceration Status: Acute Assessment and Plan for All Diagnoses:: Continue chest tube to suction Exam Vital signs and Labs for Last 24 Hours: Temp Pulse Resp BP Pulse Ox 97.9 F 58 L 18 130/90 91 L 06/13/20 04:00 06/13/20 06:14 06/13/20 04:00 06/13/20 04:00 06/13/20 06:14 Laboratory Results - last 24 hr 06/12/20 04:24: Magnesium 1.9 I & O for Last 24 hours: Intake & Output 06/10/20 06/11/20 06/12/20 06/13/20 11:59 11:59 11:59 11:59 Intake Total 1989 / 1989 180 / 180 300 / 300 1277 / 1277 Output Total 840 / 840 1415 / 1415 1380 / 1380 750 / 750 Balance 1150 / 1150 -1235 / -1235 -1080 / -1080 527 / 527 Weight 146 lb 5 oz 150 lb 4 oz 146 lb 6 oz 144 lb 7 oz Microbiology Reports for the Last 24 Hours: Microbiology 06/07/20 Unknown Sputum - Endotracheal Tube Aspirate Gram Stain - Final 06/07/20 Unknown Sputum - Endotracheal Tube Aspirate Sputum Culture - Final Normal Respiratory [place] - Routine Chest/Breast/Axilla Exam Comments: Posterior palpable subcutaneous emphysema. Positive air leak
[2020-06-13 08:28] LABS: Chloride 107 mmol/L (98-107); Potassium 3.8 mmoL/L (3.5-5.1); Sodium 140 mmol/L (136-145)
[2020-06-13 08:29] LABS: Basophils % 0.4 % (0.1-2.0); Eosinophils # 0.1 K/mm3 (0.0-0.4); Eosinophils % 1.9 % (0.1-12.0); Hematocrit 34.8 % (42.0-52.0); Hemoglobin 10.2 g/dL (14.1-18.0); Lymphocytes # 1.1 K/mm3 (0.7-4.5); Lymphocytes % 17.8 % (10-50); Mean Corpuscular HGB Conc 29.4 g/dL (31.8-35.4); Mean Corpuscular Hemoglobin 23.2 pg (27.0-31.2); Mean Corpuscular Volume 78.8 fl (80-94); Mean Platelet Volume 9.7 fl (7.4-10.4); Monocytes # 0.3 K/mm3 (0.1-1.0); Monocytes % 5.7 % (1.7-9.3); Neutrophils # 4.5 K/mm3 (1.8-7.8); Neutrophils % 74.1 % (37.0-80.0); Platelet Count 85 K/mm3 (142-424); Red Blood Count 4.41 M/mm3 (4.60-6.20); Red Cell Distribution Width 20.4 % (11.5-17.5)
[2020-06-13 08:30] LABS: Alanine Aminotransferase 58 U/L (12-78); Aspartate Amino Transferase 69 U/L (17-59); Blood Urea Nitrogen 14 mg/dl (9-20); Creatinine Clearance Estimated 81 mL/min (50-200); Estimated Glomerular Filt Rate 86 ml/min (>60); GFR (African American) 104 ML/MIN (>60)
[2020-06-13 08:31] LABS: Albumin Level 3.2 g/dl (3.5-5.0); Albumin/Globulin Ratio 0.9 (1.1-1.8); Alkaline Phosphatase 166 U/L (38-126); Anion Gap 8.8 mEq/L (5-15); Bilirubin,Total 1.4 mg/dl (0.2-1.3); Calcium 8.9 mg/dl (8.4-10.2); Carbon Dioxide 28 mmol/L (22.0-30.0); Globulin 3.7 g/dL (1.3-3.2); Glucose 94 mg/dl (74-100); Total Protein,Serum 6.9 g/dl (6.3-8.2)
--- NOTE | 2020-06-13 08:38 | P.PN_ITS ---
Internal Medicine - PN: Subj *Date: 06/13/20 *Time: 08:38 Exam Vital signs and Labs for Last 24 Hours: Temp Pulse Resp BP Pulse Ox 97.9 F 58 L 18 130/90 91 L 06/13/20 04:00 06/13/20 06:14 06/13/20 04:00 06/13/20 04:00 06/13/20 06:14 I & O for Last 24 hours: Intake & Output 06/10/20 06/11/20 06/12/20 06/13/20 23:59 23:59 23:59 23:59 Intake Total 780 / 780 180 / 180 1397 / 1397 Output Total 1280 / 1280 1065 / 1365 1730 / 1780 50 / 50 Balance -500 / -500 -885 / -1185 -333 / -383 -50 / -50 Weight 146 lb 5 oz 150 lb 4 oz 146 lb 6 oz 144 lb 7 oz Microbiology Reports for the Last 24 Hours: Microbiology 06/07/20 Unknown Sputum - Endotracheal Tube Aspirate Gram Stain - Final 06/07/20 Unknown Sputum - Endotracheal Tube Aspirate Sputum Culture - Final Normal Respiratory [place] Assessment and Plan (1) Pneumothorax, left Status: Acute Category: Medical Code(s): J93.9 - Pneumothorax, unspecified (2) Pacemaker Status: Acute Category: Medical Code(s): Z95.0 - Presence of cardiac pacemaker (3) History of myocardial infarction Status: Chronic Category: Medical Code(s): I25.2 - Old myocardial infarction (4) Tobacco use disorder Status: Chronic Category: Medical Code(s): F17.200 - Nicotine dependence, unspecified, uncomplicated (5) Anemia Status: Acute Qualifiers: Anemia type: unspecified type Qualified Code(s): D64.9 - Anemia, unspecified Category: Medical Code(s): D64.9 - Anemia, unspecified (6) Thrombocytopenia Status: Acute Category: Medical Code(s): D69.6 - Thrombocytopenia, unspecified (7) Renal insufficiency Status: Acute Category: Medical Code(s): N28.9 - Disorder of kidney and ureter, unspecified (8) Hyponatremia Status: Acute Category: Medical Code(s): E87.1 - Hypo-osmolality and hyponatremia (9) COVID-19 virus IgG antibody detected Status: Acute Category: Medical Code(s): R76.8 - Other specified abnormal immunological findings in serum (10) History of coronary artery bypass graft Problem details: 01/11/2020 [facility] Status: Chronic Category: Surgical Code(s): Z95.1 - Presence of aortocoronary bypass graft (11) CAD (coronary artery disease), [place] coronary artery Status: Chronic Qualifiers: [place] vs. transplanted heart: [place] heart Associated angina: with other forms of angina Qualified Code(s): I25.118 - Atherosclerotic heart disease of [place] coronary artery with other forms of angina pectoris Category: Medical Code(s): I25.10 - Atherosclerotic heart disease of [place] coronary artery without angina pectoris (12) Facial laceration Status: Acute Category: Medical Code(s): S01.81XA - Laceration without foreign body of other part of head, initial encounter
--- NOTE | 2020-06-13 10:02 | HMH.PULMPN ---
Internal Medicine - PN: Subj *Date: 06/13/20 *Time: 10:02 Interval history: No acute respiratory events overnight. Patient noted to have worsening leak on subcutaneous emphysema today Exam - Constitutional Constitutional:: Present: no acute distress, comfortable - HENMT Exam HENMT: Present: atraumatic - Eye Exam Eyes:: Present: eyelids normal - Neck Exam Neck:: Present: thyroid normal - Respiratory Exam Respiratory:: Present: able to speak in complete sentences, lungs clear, no respiratory distress - Cardiovascular Exam Cardiac:: Present: S1, S2 - GI Exam GI:: Present: soft, no hepatosplenomegaly - Skin Exam Skin: Present: warm, no rash - Neurological Exam Neurological: Present: alert, awake, normal cognition - Extremities Exam Extremities: Present: no cyanosis, no clubbing, edema Assessment and Plan (1) Pneumothorax, left Status: Acute Category: Medical Code(s): J93.9 - Pneumothorax, unspecified (2) Pacemaker Status: Acute Category: Medical Code(s): Z95.0 - Presence of cardiac pacemaker (3) History of myocardial infarction Status: Chronic Category: Medical Code(s): I25.2 - Old myocardial infarction (4) Tobacco use disorder Status: Chronic Category: Medical Code(s): F17.200 - Nicotine dependence, unspecified, uncomplicated (5) Anemia Status: Acute Qualifiers: Anemia type: unspecified type Qualified Code(s): D64.9 - Anemia, unspecified Category: Medical Code(s): D64.9 - Anemia, unspecified (6) Thrombocytopenia Status: Acute Category: Medical Code(s): D69.6 - Thrombocytopenia, unspecified (7) Renal insufficiency Status: Acute Category: Medical Code(s): N28.9 - Disorder of kidney and ureter, unspecified (8) Hyponatremia Status: Acute Category: Medical Code(s): E87.1 - Hypo-osmolality and hyponatremia (9) COVID-19 virus IgG antibody detected Status: Acute Category: Medical Code(s): R76.8 - Other specified abnormal immunological findings in serum (10) History of coronary artery bypass graft Problem details: 01/11/2020 [facility] Status: Chronic Category: Surgical Code(s): Z95.1 - Presence of aortocoronary bypass graft (11) CAD (coronary artery disease), [place] coronary artery Status: Chronic Qualifiers: [place] vs. transplanted heart: [place] heart Associated angina: with other forms of angina Qualified Code(s): I25.118 - Atherosclerotic heart disease of [place] coronary artery with other forms of angina pectoris Category: Medical Code(s): I25.10 - Atherosclerotic heart disease of [place] coronary artery without angina pectoris (12) Facial laceration Status: Acute Category: Medical Code(s): S01.81XA - Laceration without foreign body of other part of head, initial encounter - Assessment and plan all Dx Assessment and Plan for all problems:: #COPD exacerbation: #Community-acquired pneumonia: 59-year-old carries a diagnosis of COPD CAD presented for an outpatient procedure complicated by pneumothorax that is post chest tube placement. Patient also had coded with CPR , chest replacement resulted in return of spontaneous circulation. Initial blood gas showed mixed metabolic and respiratory acidosis that improved however both gases were drawn before increasing her's tidal volume. Patient respiratory improved however patient was successfully extubated within 18 hours after intubation. Patient respiratory status continued to improve, this morning on room air saturating 95%. No respiratory distress. Lungs clear to auscultate. Chest tube in place, followed by surgery. Repeat CT chest over the weekend showed residual pneumothorax predominantly at the left lung base. Chest tube in position ending at the left apex. Patient noted to have intermittent air leak throughout this hospital which appeared to be worsened this morning with leak noted with deep breathing. Patient also noted to have worsening subcut
--- NOTE | 2020-06-13 10:52 | HMH.PNCARD ---
Subjective Date: 06/13/20 Time: 10:52 Principal diagnosis: tension pneumothorax Interval history: 59-year-old white male in bed in no acute distress. is present and states patient is still confused at times. She feels like he has antianxiety medication may still be a little too strong. Exam Vital signs and Labs for Last 24 Hours: Temp Pulse Resp BP Pulse Ox 97.4 F L 85 20 145/74 H 92 L 06/13/20 08:00 06/13/20 10:50 06/13/20 08:00 06/13/20 08:00 06/13/20 08:00 Laboratory Results - last 24 hr 06/13/20 08:03: WBC 6.0, RBC 4.41 L, Hgb 10.2 L, Hct 34.8 L, MCV 78.8 L, MCH 23.2 L, MCHC 29.4 L, RDW 20.4 H, Plt Count 85 L, MPV 9.7, Neut % (Auto) 74.1, Lymph % (Auto) 17.8, [place] % (Auto) 5.7, Eos % (Auto) 1.9, Baso % (Auto) 0.4, Neut # (Auto) 4.5, Lymph # (Auto) 1.1, [place] # (Auto) 0.3, Eos # (Auto) 0.1, Baso # (Auto) 0.0 06/13/20 08:03: Sodium 140, Potassium 3.8 D, Chloride 107, Carbon Dioxide 28, Anion Gap 8.8, BUN 14, Creatinine 0.90, Estimated Creat Clear 81, Estimated GFR 86, Est GFR ( Amer) 104, Glucose 94, Calcium 8.9, Total Bilirubin 1.4 H, AST 69 H, ALT 58, Alkaline Phosphatase 166 H, Total Protein 6.9, Albumin 3.2 L, Globulin 3.7 H, Albumin/Globulin Ratio 0.9 L I & O for Last 24 hours: Intake & Output 06/10/20 06/11/20 06/12/20 06/13/20 11:59 11:59 11:59 11:59 Intake Total 1989 / 1989 180 / 180 300 / 300 1437 / 1437 Output Total 840 / 840 1415 / 1415 1380 / 1380 750 / 750 Balance 1150 / 1150 -1235 / -1235 -1080 / -1080 687 / 687 Weight 146 lb 5 oz 150 lb 4 oz 146 lb 6 oz 144 lb 7 oz Microbiology Reports for the Last 24 Hours: Microbiology 06/07/20 Unknown Sputum - Endotracheal Tube Aspirate Gram Stain - Final 06/07/20 Unknown Sputum - Endotracheal Tube Aspirate Sputum Culture - Final Normal Respiratory [place] - Routine Chest/Breast/Axilla Exam Comments: Chest tube in the left side with evidence of subcutaneous emphysema up into the shoulder. Pacemaker dressing intact - *Routine Respiratory Exam Present: CTA bilaterally Comments: Decreased breath sounds at the right base. - *Routine Cardiovascular Exam Present: RRR - *Routine Extremities Exam Absent: cyanosis, clubbing, edema - *Routine Neurological Exam Present: alert Progress Note: A&P (1) Pneumothorax, left Status: Acute (2) Pacemaker Status: Acute (3) History of myocardial infarction Status: Chronic (4) Tobacco use disorder Status: Chronic (5) Anemia Status: Acute (6) Thrombocytopenia Status: Acute (7) Renal insufficiency Status: Acute (8) Hyponatremia Status: Acute (9) COVID-19 virus IgG antibody detected Status: Acute (10) History of coronary artery bypass graft Problem details: 01/11/2020 [facility] Status: Chronic (11) CAD (coronary artery disease), [place] coronary artery Status: Chronic (12) Facial laceration Status: Acute Assessment and Plan for All Diagnoses:: Will decrease ativan at 's request. Tension pneumothorax post AICD implantation with CPR and transient mechanical ventilation, status post chest tube, per surgeons. Cardiomyopathy with AICD implanted last week. CAD with history of bypass surgery, clinically stable.
--- NOTE | 2020-06-13 11:18 | SW/DCPLANNER ---
Addendum entered by Olga Lidia Garcia 06/14/20 07:35: I will inform Saumya with [facility] that this patient did transfer last night. Original Note: I have spoke with this patients regarding discharge plans once medically stable for discharge. Patient was confused at time of my visit stating that he was at the [facility] in [place]. stated that if patient is not able to feed himself and has confusion at time of discharge then she would be interested in placement for this patient. is agreeable for me to fax patient information to [facility] at this time. I have spoke with Saumya from [facility] and she stated that she does have male beds available at this time. Patient is not ready for discharge but information has been faxed. I will follow up with Saumya once patient information is reviewed.
--- NOTE | 2020-06-13 11:53 | [facility].DCSUM ---
General - General Admission date:: 06/07/20 Discharge date: 06/13/20 HPI HPI: 59-year-old male with significant comorbidities including COPD, coronary artery disease status post CABG with graft thrombosis with a STEMI and revascularization around April 2018 presented to hospital today for an outpatient procedure. The patient was undergoing permanent AICD placement and the procedure was complicated by tension pneumothorax. The patient did code and had CPR which resulted in spontaneous circulation. The patient was intubated and placed on the ventilator. chest tube placed per surgery. cardiology and pulmonary consults placed Hospital Course Hospital Course: 59-year-old male patient in for a permanent pacemaker placement, during procedure patient went asystole, CPR was began with chest compressions, during CPR pneumothorax developed in the left lower lung base. After return of spontaneous circulation chest tube was placed, patient was elevated and remained intubated for 18 hours, patient was extubated oxygen was gradually decreased. 06/07/20 PPM XR: IMPRESSION 1. Successful Pocket formation for AICD. 2. Successful Placement of atrial sensing and pacing coil into the right atrial appendage. 3. Successful Placement of a ventricular sensing, pacing and shocking coil in the right ventricular apex. 4. Successful Permanent AICD placement. PLAN 1. Post op wound care, follow up office visit Electronically signed by : Lawrence Adrian, 06/13/20 CXR: IMPRESSION: Increasing left-sided subcutaneous emphysema with possible tiny left apical pneumothorax with left chest tube in place Medium-sized right pleural effusion with right basilar airspace disease Dictated by: [facility] has seen and rec: Will decrease ativan at 's request. Tension pneumothorax post AICD implantation with CPR and transient mechanical ventilation, status post chest tube, per surgeons. Cardiomyopathy with AICD implanted last week. CAD with history of bypass surgery, clinically stable. Pulmonology has seen and rec: Plan: -Patient this morning on 3 L nasal cannula saturations ranging between 96 to 97%, wean to 1 L nasal cannula, wean oxygen as tolerated with O2 saturation goal of 88 to 92% - Discontinue ceftriaxone azithromycin as patient completed a total of 5-day course - Continue DuoNebs every 6 and Budesonide every 12 schedule, can be changed to triple inhaler therapy on discharge -Volume optimization as per primary team and cardiology, chest x-ray appear to be having worsening volume overload with increased vascular congestion and slight worsening of the right-sided effusion General Surgery has seen and rec: Posterior palpable subcutaneous emphysema. Positive air leak Chest tube remains in place. And is followed by general surgery intermittent air leak which appears to have worsened this morning. Also experiencing increasing subcutaneous emphysema. This morning patient's oxygenation 97% on 3 L per nasal cannula, patient was placed on room air and oxygen saturations 93% Patient has completed a 5-day course of ceftriaxone and azithromycin IV He has had duo nebs every 6 hours and budesonide every 12 hours During his stay patient fell in the floor hitting head which required several sutures to right forehead laceration edges are well approximated. Head CT and cervical spine CTs revealed no acute findings This morning lab work White blood cell count 6.0, hemoglobin 10.2, hematocrit 34.8, Chemistries within normal BUN 14, creatinine 0.9, GFR 86 Patient has been accepted at the [facility] by Dr. John Adair, report was given Discussed patient condition with , she is agreeable to transfer to and she is reassured they will have access to his medical records from [facility]. Objective Vital signs: Temp Pulse Resp BP Pulse Ox 97.4 F L 85 20 145/74 H
== END 2020-06-13 17:57 | disposition short-term general hospital (02) | DRG 226 ==
LOC: 2ND 06-08 05:57
PROVIDERS: Internal Medicine; Internal Medicine Pulmonary Disease; Nurse Practitioner Family; Physician Assistant; Admitting Provider Emergency Medicine; PCP Family Medicine; Visit Provider Emergency Medicine
PROC: 0JH609Z Insertion of Cardiac Resynchronization Defibrillator Pulse Generator into Chest Subcutaneous Tissue and Fascia, Open Approach (ICD-10-PCS; CPT 33249; principal; 2020-06-07 11:30)
DX: I25.5 Ischemic cardiomyopathy (principal); J96.01 Acute respiratory failure with hypoxia; I50.22 Chronic systolic (congestive) heart failure; J95.811 Postprocedural pneumothorax; I11.0 Hypertensive heart disease with heart failure; Z86.16 Personal history of COVID-19; Z95.5 Presence of coronary angioplasty implant and graft; Z95.1 Presence of aortocoronary bypass graft; Z72.0 Tobacco use; I25.2 Old myocardial infarction; J44.9 Chronic obstructive pulmonary disease, unspecified; S01.81XA Laceration without foreign body of other part of head, initial encounter; W19.XXXA Unspecified fall, initial encounter; Y92.230 Patient room in hospital as the place of occurrence of the external cause
CPT/HCPCS: 32551; 12011; 33249; 36415; 70450; 71045; 71250; 72125; 72190; 80048; 80053; 80202; 80305; 81001; 82803; 82962; 83735; 85025; 86328; 87070; 87086; 87205; 87581; 87633; 87798; 93005; 94002; 94003; 94640; 94760; 94761; C1721; C1895; C1898; J2704; J3370

== ENCOUNTER 2020-06-28 14:11 | Day surgery (SDC) | payer MEDICARE, SELFPAY ==
[2020-06-28] VITALS (7 sets, daily range): BP systolic 119–151; BP diastolic 75–98; PULSE 60–86; RESP 12–18; O2SAT 93–100; BMI 19.6
--- NOTE | 2020-06-28 13:00 | IR_ITS ---
APPROVED REPORT Patient Location: Outpatient PROCEDURES Pocket revision Informed consent was obtained prior to the procedure. COMPLICATIONS None Estimated Blood Loss: Less than 10 mls TECHNIQUE Patient was taken to the Associate Director [facility] and given IV Versed for sedation. A ChloraPrep was used to sterilely prepped the pacemaker incision site and around the area. ChloraPrep remained on the surgical site 3 minutes prior to incision. 1% lidocaine was used to anesthetize the surgical area a scalpel was used to make an elliptical incision around the old incision site which had already granulated and dehisced. Once the elliptical incision was complete Monocryl was used to close the subcutaneous tissue. Following this 12 cutaneous luzmaria were placed to approximate the epidermal layers. Patient tolerated the procedure well. 1 g of Ancef was used to flush the pocket prior to suture closure. INTERROGATION None IMPRESSION Successful revision of the pacemaker pacemaker pocket incision site PLAN 1. post op wound care, follow up office visit 2. Bactrim DS 2 twice daily Electronically signed by : Lawrence Adrian, 07/03/2020 12:33:14
== END 2020-06-28 16:20 | disposition home or self-care (01) ==
PROVIDERS: PCP Family Medicine; Visit Provider Internal Medicine
DX: T81.31XA Disruption of external operation (surgical) wound, not elsewhere classified, initial encounter (principal); T82.897A Other specified complication of cardiac prosthetic devices, implants and grafts, initial encounter; I25.5 Ischemic cardiomyopathy; Z79.899 Other long term (current) drug therapy; I11.0 Hypertensive heart disease with heart failure; Z86.16 Personal history of COVID-19; I50.9 Heart failure, unspecified
CPT/HCPCS: 33222; 99152; 99153

== ENCOUNTER 2020-07-05 18:55 | Emergency (ER) | payer MEDICARE, SELFPAY ==
--- NOTE | 2020-07-05 19:02 | PC.NURSE ---
speaking to patient at this time.
--- NOTE | 2020-07-05 19:09 | PC.NURSE ---
etienne plascencia was contacted and is on his way.
--- NOTE | 2020-07-05 19:10 | PC.NURSE ---
family at bedside.
--- NOTE | 2020-07-05 19:21 | PC.NURSE ---
leonor degroot rn speaking to mirza at this time.
--- NOTE | 2020-07-05 19:28 | PC.NURSE ---
cony squires at facility at this time.
--- NOTE | 2020-07-05 19:40 | PC.NURSE ---
1846 pt arrived via EMS in full arrest. acls protocol initiated proir to arrival. EMs reports pt was given 6 rounds of epi,one amp of bicarb,defib x 1. pt was intubated with 7.0 ett per ems. [place] device in place and remained on during duration of code. 184 epi x1 given per s mikayla hale [address] in lt wrist 1 L NS hung 185 1 amp bicarb given per s mikayla 185 rhythm check PEA, no palpable pulse noted 185 epi x1 given per [place] hale 185 rhythm check PEA,no palpable pulse noted 185 epi x1 given per [place] hale 185 rhythm check PEA- wide complex,no palpable pulse noted. coronary ultrasound performed per Dr Vargas no contractility noted. 1856 magnet placed over pacemaker per Dr vargas 1857 epi x1 given per [place] hale 185 1 amp bicarb given per s mikayla 190 rhythm check PEA,no palpable pulse noted [address] vargas [address] vargas speaking with family 191 family @ bedside 1919 Notified AISSATOU of . spoke with [facility] will return call due to pt meeting criteria for screening. 1927 enrique Child @ bedside. 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
--- NOTE | 2020-07-05 19:51 | [facility].EDCPR ---
ED Disposition Clinical Impression: Acute myocardial infarction Qualifiers: Myocardial infarction type: non-ST elevation myocardial infarction Qualified Code(s): I21.4 - Non-ST elevation (NSTEMI) myocardial infarction Disposition: Condition on Discharge: Critical () Referrals: PCP,No [Primary Care Provider] - - Critical Care Critical Care Time: No Attestation: On 07/05/20, the high probability of a clinically significant, sudden or life threatening deterioration of the following system(s) required my full and direct attention, intervention and personal management. The time I documented below is in addition to time spent performing reported procedures but includes the following listed in this critical care notation. [facility] Code Documentation - Arrest Information Outside of Hospital The Code Document Section documentation for [id number] Nikos Mohr was populated with data that defaulted in from the fittings finisher in the Code Assessment on f_Reg Service Date] to provide within this report, the status and treatment of the patient in the ED during a Code. This documentation will be supplemented with my direct findings within the body of the report. Date Treatment Initiated: 07/05/20 Time Treatment Initiated: 18:01 Treatment Initiated By: Bystander Location of Arrest: home Arrest Witnessed: No (son found) Estimated Down Time: unknown - Arrest Information in Hospital Other Location of Arrest: home Type of Arrest In-house: Cardiac In-house Arrest Witnessed: Yes - Unmonitored - ALS Code Inititation ALS Initiated By: EMS ALS Type: ACLS - Patient Condition At Code Start Condition of Patient at Start of Code: Pulseless, Apneic, Unconscious Monitoring Devices: ECG Monitor, Pulse Oximeter, Apnea Monitor, Capnograph - Circulation Initial Cardiac Rhythm: PEA - Oxygenation Oxygen Breathing Status: Assisted - Code End Time Code Ended: 19:01 Patient Successfully Resuscitated: No Reason Code Ended: - Efforts Terminated Family Members Present During Code: No Names of All Individuals Present at Code: danny torre rn. rohit gregorio rn. rohit degroot rn. guillaume franco emt. lenin rtCayla gan rt. Dr alicia dhaliwal - Patient Expiration Date: 07/05/20 Expiration Time: 19:01 Pronounced by: Dr vargas Time Pronounced: 19:01 Post Mortem Care Provided: Yes Next of Kin Notified: Next of Kin Notification Time: 19:05 Solomon Notified: Yes Name of Solomon Operations Agent: Fartun Lines Tender Case: Yes Lines Tender Notified: Yes Lines Tender Notification Date: 07/05/20 Lines Tender Notification Time: 19:28 Medical Decision Making - Medical Records Medical records reviewed: Yes: I reviewed the patient's medical records. - Rosalio Inquiry Pt receiving controlled substance: No Medical Decision Narrative: The patient presents to the emergency department via EMS after having been found down at home. CPR was initiated by the family. When EMS found the patient unresponsive they intubated him and proceeded with ACLS protocol. Patient received several rounds of epinephrine as well as a dose of sodium bicarbonate prior to arrival. The patient remained pulseless. Upon arrival to the emergency department I confirmed that the endotracheal tube is in good position. Breath sounds were audible bilaterally. There was no spontaneous pulse. On the monitor, the patient had a paced rhythm with PEA. ACLS protocol was continued. After several rounds of CPR and ACLS medications I found it futile to continue CPR since the patient had been down for approximately 1 hour without any shockable rhythm. The patient was pronounced at approximately 1901 today. Patient's family was informed and is at the patient's bedside at this time. CPR HPI - General Chief Complaint: Cardiac Arrest/CPR Stated Complaint: CARDIAC ARREST Time Seen by Provider: 07/05/20 18:55 Mode of Arrival: EMS Source of Information: EMS Limitations: Altered Mental Status
--- NOTE | 2020-07-05 20:16 | PC.NURSE ---
Solomon called to speak with
--- NOTE | 2020-07-05 20:56 | PC.NURSE ---
Solomon called back and states pt has rule in for a donor of tissue and eyes. pt is to be back in [place] once family is done visiting
--- NOTE | 2020-07-05 20:56 | PC.NURSE ---
Kelley Martínez is speaking to [employer] at this time.
--- NOTE | 2020-07-05 21:18 | PC.NURSE ---
ice packs placed under pt's arms and groin
[2020-07-05 21:39] VITALS: BMI 22.3
--- NOTE | 2020-07-06 00:14 | PC.NURSE ---
AISSATOU arrived to transport pt to [facility] for harvest.
--- NOTE | 2020-07-06 00:23 | PC.NURSE ---
Release of body form signed
[2020-07-06 00:36] VITALS: BP 00/00; PULSE 0; RESP 0; TEMP -17.7; TEMP 0
== END 2020-07-05 19:01 | disposition expired ==
PROVIDERS: Emergency Provider Emergency Medicine
DX: I21.4 Non-ST elevation (NSTEMI) myocardial infarction (principal); I10 Essential (primary) hypertension; I25.10 Atherosclerotic heart disease of native coronary artery without angina pectoris; I50.9 Heart failure, unspecified; I25.2 Old myocardial infarction; E78.5 Hyperlipidemia, unspecified; Z95.0 Presence of cardiac pacemaker; F17.210 Nicotine dependence, cigarettes, uncomplicated; Z88.8 Allergy status to other drugs, medicaments and biological substances; Z79.899 Other long term (current) drug therapy
CPT/HCPCS: 31500; 96375; 96376; 99283